=== PATIENT | male | born 1995 | race Native Hawaiian/Other Pacific Islander ===

== ENCOUNTER 2020-04-28 21:23 | Emergency (ER) | payer MEDICAID, SELFPAY ==
--- NOTE | 2020-04-28 21:38 | PC.NURSE ---
pt arrived to via EMS and eloped immediately. EMS reported pt was very dramatic en route and was talking on his phone saying that he was bleeding heavily. EMS reports pt had no bleeding on scene or en route, and no lacerations or open areas.Pt would not agree to remain in ER and complete triage or treatment.
== END 2020-04-28 21:53 | disposition left against medical advice (07) ==
PROVIDERS: Emergency Provider Emergency Medicine Emergency Medical Services
DX: Z04.9 Encounter for examination and observation for unspecified reason (principal)

== ENCOUNTER 2021-09-23 10:54 | Emergency (ER) | payer MEDICAID, SELFPAY ==
[2021-09-23 11:03] VITALS: BP 160/103; PULSE 84; RESP 18; TEMP 36.8; O2SAT 97; BMI 21.4
[2021-09-23 11:23] LABS: MANUAL DIFF FLAG NO
[2021-09-23 11:36] VITALS: BP 147/91; PULSE 68; RESP 17; TEMP 36.9; O2SAT 99
[2021-09-23 11:37] LABS: Basophils Percent Auto 0.5 % (0-2); Eosinophils Absolute Auto 0.3 X10*3/uL (0.0-0.4); Eosinophils Percent Auto 3.8 % (0-4); Hematocrit 49.1 % (42.0-52.0); Imm Gran Abs Auto 0.01 X10*3/uL (0.00-0.03); Imm Gran Pct Auto 0.2 % (0.0-0.4); Lymphocytes Percent Auto 30.7 % (20-40); Mean Corpuscular HGB Conc 34.6 g/dl (31.0-36.0); Mean Corpuscular Hemoglobin 32.3 pg (27.0-33.0); Mean Corpuscular Volume 93.3 fL (80.0-98.0); Mean Platelet Volume 10.3 fL (9.4-12.4); Monocytes Absolute Auto 0.5 X10*3/uL (0.1-1.2); Monocytes Percent Auto 7.3 % (2-11); Neutrophils Absolute Auto 3.8 x10*3/uL (2.0-8.3); Neutrophils Percent Auto 57.5 % (45-73); Platelet Count 236 X10*3/uL (160-400); Red Blood Count 5.26 X10*6/uL (4.60-5.80); Red Cell Distribution Width 12.8 % (11.0-16.0); White Blood Count 6.6 X10*3/uL (4.8-10.8)
[2021-09-23 11:41] LABS: Ethanol < 10 mg/dL
--- NOTE | 2021-09-23 11:42 | ED_ITS ---
HPI - Psych General Chief Complaint: Psychiatric Symptoms <SADIQ Wahl Last Filed: 09/23/21 12:55> Stated Complaint: sec 12 <SADIQ Wahl Last Filed: 09/23/21 12:55> Time Seen by Provider: 09/23/21 11:01 <SADIQ Wahl Last Filed: 09/23/21 12:55> Source: patient <ASDIQ Wahl Last Filed: 09/23/21 12:55> Mode of arrival: ambulatory <SADIQ Wahl Last Filed: 09/23/21 12:55> Limitations: no limitations <SADIQ Wahl Last Filed: 09/23/21 12:55> History of Present Illness HPI Narrative: 25-year-old male presenting to the ED via EMS with police involvement with a Section 12 sign by police presenting to the ED after his girlfriend that he just broke up with called the police after he made an SI statement saying that he was going to kill himself by text message. Patient reports that he does drink Vee and he drank prior to arrival. He denies any drug usage. He denies SI/HI / auditory visualizations thoughts of self-injury. He reports that the girlfriend is mad because I do not want to fuck her anymore . He reports that he is not interested in detox. He feels safe at home. He reports that he has a job. He denies any other symptoms complaints or concerns at this time. 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) <SADIQ Wahl Last Filed: 09/23/21 12:55> Duration: constant <SADIQ Wahl Last Filed: 09/23/21 12:55> History of same: Yes <SADIQ Wahl Last Filed: 09/23/21 12:55> Relieving factors: none <SADIQ Wahl Last Filed: 09/23/21 12:55> Exacerbating factors: none <SADIQ Wahl Last Filed: 09/23/21 12:55> Context: recent alcohol abuse <SADIQ Wahl Last Filed: 09/23/21 12:55> Associated symptoms: denies other symptoms <SADIQ Wahl Last Filed: 09/23/21 12:55> Related Data Allergies/Adverse Reactions: Allergies Allergy/AdvReac Type Severity Reaction Status Date / Time chlorpromazine Allergy Unknown UNKNOWN Unverified 02/25/20 16:18 [From THORAZINE] haloperidol [From HALDOL] Allergy Unknown UNKNOWN Unverified 02/25/20 16:18 <SADIQ Wahl Last Filed: 09/23/21 12:55> Review of Systems Review of Systems: Constitutional : No Fever, No Chills ENT/Mouth : No Ear Pain, No Nasal Congestion, No sore throat Eyes: No Eye Pain, No Swelling, No Redness Cardiovascular : No Chest Pain, No SOB Respiratory : No Cough, No Sputum, No Dyspnea Gastrointestinal : No ingestions, No Nausea, No Vomiting, No Diarrhea, No Hematochezia, No Melena Genitourinary : No Dysuria, No Urinary Frequency, No Hematuria Musculoskeletal : No Myalgias Skin : No Skin Lesions, No rash Neuro : No Weakness, No Numbness, No Paresthesias, No Dizziness, No Headache Psych : + Anxiety, No Depression, No SI, No thoughts of self injury, No HI, No AVH, Heme/Lymph: No Lymphadenopathy Endocrine : No Polyuria, No Polydipsia <SADIQ Wahl Last Filed: 09/23/21 12:55> Yes all other systems are reviewed and are negative <SADIQ Wahl Last Filed: 09/23/21 12:55> [facility] Past Medical History Attestation statement: The following information was validated with the patient. <SADIQ Wahl Last Filed: 09/23/21 12:55> Social History Social History: Social History Advance Directives: No Advance Directives Information Provided: No <SADIQ Wahl Last Filed: 09/23/21 12:55> Physical Exam Vital Signs: Vital Signs: Last Vital Signs Temp 98.4 F 09/23/21 11:36 Pulse 68 09/23/21 11:36 Resp 17 09/23/21 11:36 BP 147/91 H 09/23/21 11:36 Pulse Ox 99 09/23/21 11:36 BMI result Body Mass Index 21.4 vital signs have been reviewed as normal and appeared to be correct. Blood pressure 160/103. Heart rate normal. Respiration rate normal. Temperature normal. Oxygen saturation normal. <SADIQ Wahl - Last Filed: 09/23/21 12:55> Vital Signs: Last Vital Signs Temp 98.4 F 09/23/21 11:36 Pulse 68 09/23/21 11:36 Resp 17 09/23/21 11:36 BP 147/91 H 09/23/21 11:36 Pulse Ox 99 09/23/21 11:36 BMI result Body Mass Index 21.4 <SADIQ Howe - Last Filed: 09/23/21 13:36> Appearance: Alert. Oriented X3. No acute distress. Head: Normal external exam. Normocephalic. Atraumatic. No Antonio signs noted. No raccoon eyes noted Eyes: PERRLA. EOMI. Conjunctiva and sclera normal. Eyelids normal. ENT: EAC normal. TM's Normal. Pharynx normal. Uvula midline. Moist mucous membranes. No trismus noted. No drooling noted. No muffled voice noted. Neck: Normal inspection. Neck supple. FROM. No adenopathy. Thyroid Normal. No meningeal signs. No neck mass noted. CVS: Normal heart rate and rhythm. Heart sound normal. No murmurs noted. Pulses normal throughout. Respiratory: No respiratory distress. Painless inspiration. Breath sounds jaymie l. No wheezes/rales/rhonchi noted. Chest nontender. No accessory muscle usage noted or decreased air movement noted. Abdomen: Soft and nontender. Bowel sounds normal in all 4 quadrants. No distention noted. No organomegaly noted. No visible injury noted. Back: No CVA tenderness. Full range of motion noted. Skin: Skin warm and dry. Normal skin color. Normal skin turgor. No rashes/lesions/lacerations noted. Extremities: No lower extremity edema. Extremities exhibit normal range of motion. Extremities nontender. Neuro: Oriented X 3. No motor deficit. No sensory deficit. Reflexes normal. CN's II-XII intact bilaterally? Psych: Appearance grossly normal, well-kept, mental status normal, speech and movement normal, speech clear, patient appears very sad and anxious along with depressed. Is cooperative. Normal thought process. Normal thought content. Normal good insight. Judgment good. <SADIQ Wahl - Last Filed: 09/23/21 12:55> Course Course Course Narrative: 11am - 25-year-old male presenting to the ED via EMS with police involvement with a Section 12 sign by police presenting to the ED after his girlfriend that he j ust broke up with called the police after he made an SI statement saying that he was going to kill himself by text message. Patient reports that he does drink Vee and he drank prior to arrival. He denies any drug usage. He denies SI/HI / auditory visualizations thoughts of self-injury. He reports that the girlfriend is mad because I do not want to fuck her anymore . He reports that he is not interested in detox. He feels safe at home. He reports that he has a job. He denies any other symptoms complaints or concerns at this time. Will obtain labs, UA, drugs of abuse screen, alcohol level and a COVID swab then re-evaluate. <SADIQ Wahl - Last Filed: 09/23/21 12:55> Reevaluation(s) Reevaluation #1: - All labs within normal limits. Patient's alcohol level is completely negative. Patient negative for COVID. - Therefore patient is placed in Physician observation because the patient needs more time to be evaluated by crisis. At this time he is alert and oriented x3. Not in any acute distress. No focal neuro deficits are noted. Lungs clear to auscultation. CV RRR. Abdomen is soft nontender. Will continue to monitor until he is evaluated by crisis. <SADIQ Wahl - Last Filed: 09/23/21 12:55> Time: 11:58 <SADIQ Wahl - Last Filed: 09/23/21 12:55> Reevaluation #2: Patient will be an [facility] follow up. Initially [facility] wanted to discharge this patient however, based on his initial presentation and him shouting things and appearing to be manic I do not agree. Patient will be reevaluated tomorrow. N did not fill out a section 12. <SADIQ Howe - Last Filed: 09/23/21 13:36> Time: 13:36 <SADIQ Howe - Last Filed: 09/23/21 13:36> MDM - Psych Medical Records Attestation: I reviewed the patient's medical records. <SADIQ Wahl - Last Filed: 09/23/21 12:55> Lab Data Attestation: I reviewed the patient's lab results. <SADIQ Wahl - Last Filed: 09/23/21 12:55> Result diagrams: : 09/23/21 11:16 09/23/21 11:16 <SADIQ Wahl - Last Filed: 09/23/21 12:55> Labs: Lab Results 09/23/21 09/23/21 09/23/21 Range/Units 11:16 11:16 11:16 WBC 6.6 (4.8-10.8) X10*3/uL RBC 5.26 (4.60-5.80) X10*6/uL Hgb 17.0 (14.0-18.0) g/dl Hct 49.1 (42.0-52.0) % MCV 93.3 (80.0-98.0) fL MCH 32.3 (27.0-33.0) pg MCHC 34.6 (31.0-36.0) g/dl RDW 12.8 (11.0-16.0) % Plt Count 236 (160-400) X10*3/uL MPV 10.3 (9.4-12.4) fL Immature Gran % (Auto) 0.2 (0.0-0.4) % Neut % (Auto) 57.5 (45-73) % Lymph % (Auto) 30.7 (20-40) % [place] % (Auto) 7.3 (2-11) % Eos % (Auto) 3.8 (0-4) % Baso % (Auto) 0.5 (0-2) % Lymph # (Auto) 2.0 (1.2-4.9) X10*3/uL [place] # (Auto) 0.5 (0.1-1.2) X10*3/uL Eos # (Auto) 0.3 (0.0-0.4) X10*3/uL Baso # (Auto) 0.0 (0.0-0.2) X10*3/uL Abs Immat Gran (auto) 0.01 (0.00-0.03) X10*3/uL Absolute Neuts (auto) 3.8 (2.0-8.3) x10*3/uL Absolute Nucleated RBC 0.000 (0.0-0.012) X10*3/uL Nucleated RBC % (auto) 0.0 (0.0-0.2) /100WBC Sodium 139 (135-145) mmol/L Potassium 4.0 (3.3-5.1) mmol/L Chloride 105 (96-108) mmol/L Carbon Dioxide 25 (22-29) mmol/L Anion Gap 13 (12-20) BUN 13 (9-16) mg/dL Creatinine 0.92 (0.5-1.4) mg/dL Estim Creat Clear Calc 119.1 Estimated GFR > 60 Random Glucose 92 (60-115) mg/dL Calcium 9.9 (8.4-10.2) mg/dL Magnesium 2.3 (1.6-2.6) mg/dL Total Bilirubin 0.7 (0.0-1.0) mg/dL AST 21 (5-37) U/L ALT 21 (0-40) U/L Alkaline Phosphatase 59 (39-117) U/L Total Protein 7.5 (6.5-8.0) g/dL Albumin 4.5 (3.5-5.0) g/dL Lipase 24 (8-78) U/L Ethyl Alcohol < 10 mg/dL COVID-19 (DELPHINE) (Negative) COVID-19 Clin Com 09/23/21 Range/Units 11:16 WBC (4.8-10.8) X10*3/uL RBC (4.60-5.80) X10*6/uL Hgb (14.0-18.0) g/dl Hct (42.0-52.0) % MCV (80.0-98.0) fL MCH (27.0-33.0) pg MCHC (31.0-36.0) g/dl RDW (11.0-16.0) % Plt Count (160-400) X10*3/uL MPV (9.4-12.4) fL Immature Gran % (Auto) (0.0-0.4) % Neut % (Auto) (45-73) % Lymph % (Auto) (20-40) % [place] % (Auto) (2-11) % Eos % (Auto) (0-4) % Baso % (Auto) (0-2) % Lymph # (Auto) (1.2-4.9) X10*3/uL [place] # (Auto) (0.1-1.2) X10*3/uL Eos # (Auto) (0.0-0.4) X10*3/uL Baso # (Auto) (0.0-0.2) X10*3/uL Abs Immat Gran (auto) (0.00-0.03) X10*3/uL Absolute Neuts (auto) (2.0-8.3) x10*3/uL Absolute Nucleated RBC (0.0-0.012) X10*3/uL Nucleated RBC % (auto) (0.0-0.2) /100WBC Sodium (135-145) mmol/L Potassium (3.3-5.1) mmol/L Chloride (96-108) mmol/L Carbon Dioxide (22-29) mmol/L Anion Gap (12-20) BUN (9-16) mg/dL Creatinine (0.5-1.4) mg/dL Estim Creat Clear Calc Estimated GFR Random Glucose (60-115) mg/dL Calcium (8.4-10.2) mg/dL Magnesium (1.6-2.6) mg/dL Total Bilirubin (0.0-1.0) mg/dL AST (5-37) U/L ALT (0-40) U/L Alkaline Phosphatase (39-117) U/L Total Protein (6.5-8.0) g/dL Albumin (3.5-5.0) g/dL Lipase (8-78) U/L Ethyl Alcohol mg/dL COVID-19 (DELPHINE) Negative (Negative) COVID-19 Clin Com See Note <SADIQ Wahl - Last Filed: 09/23/21 12:55> Lab Results 09/23/21 09/23/21 09/23/21 Range/Units 11:16 11:16 11:16 WBC 6.6 (4.8-10.8) X10*3/uL RBC 5.26 (4.60-5.80) X10*6/uL Hgb 17.0 (14.0-18.0) g/dl Hct 49.1 (42.0-52.0) % MCV 93.3 (80.0-98.0) fL MCH 32.3 (27.0-33.0) pg MCHC 34.6 (31.0-36.0) g/dl RDW 12.8 (11.0-16.0) % Plt Count 236 (160-400) X10*3/uL MPV 10.3 (9.4-12.4) fL Immature Gran % (Auto) 0.2 (0.0-0.4) % Neut % (Auto) 57.5 (45-73) % Lymph % (Auto) 30.7 (20-40) % [place] % (Auto) 7.3 (2-11) % Eos % (Auto) 3.8 (0-4) % Baso % (Auto) 0.5 (0-2) % Lymph # (Auto) 2.0 (1.2-4.9) X10*3/uL [place] # (Auto) 0.5 (0.1-1.2) X10*3/uL Eos # (Auto) 0.3 (0.0-0.4) X10*3/uL Baso # (Auto) 0.0 (0.0-0.2) X10*3/uL Abs Immat Gran (auto) 0.01 (0.00-0.03) X10*3/uL Absolute Neuts (auto) 3.8 (2.0-8.3) x10*3/uL Absolute Nucleated RBC 0.000 (0.0-0.012) X10*3/uL Nucleated RBC % (auto) 0.0 (0.0-0.2) /100WBC Sodium 139 (135-145) mmol/L Potassium 4.0 (3.3-5.1) mmol/L Chloride 105 (96-108) mmol/L Carbon Dioxide 25 (22-29) mmol/L Anion Gap 13 (12-20) BUN 13 (9-16) mg/dL Creatinine 0.92 (0.5-1.4) mg/dL Estim Creat Clear Calc 119.1 Estimated GFR > 60 Random Glucose 92 (60-115) mg/dL Calcium 9.9 (8.4-10.2) mg/dL Magnesium 2.3 (1.6-2.6) mg/dL Total Bilirubin 0.7 (0.0-1.0) mg/dL AST 21 (5-37) U/L ALT 21 (0-40) U/L Alkaline Phosphatase 59 (39-117) U/L Total Protein 7.5 (6.5-8.0) g/dL Albumin 4.5 (3.5-5.0) g/dL Lipase 24 (8-78) U/L Ethyl Alcohol < 10 mg/dL COVID-19 (DELPHINE) (Negative) COVID-19 Clin Com 09/23/21 Range/Units 11:16 WBC (4.8-10.8) X10*3/uL RBC (4.60-5.80) X10*6/uL Hgb (14.0-18.0) g/dl Hct (42.0-52.0) % MCV (80.0-98.0) fL MCH (27.0-33.0) pg MCHC (31.0-36.0) g/dl RDW (11.0-16.0) % Plt Count (160-400) X10*3/uL MPV (9.4-12.4) fL Immature Gran % (Auto) (0.0-0.4) % Neut % (Auto) (45-73) % Lymph % (Auto) (20-40) % [place] % (Auto) (2-11) % Eos % (Auto) (0-4) % Baso % (Auto) (0-2) % Lymph # (Auto) (1.2-4.9) X10*3/uL [place] # (Auto) (0.1-1.2) X10*3/uL Eos # (Auto) (0.0-0.4) X10*3/uL Baso # (Auto) (0.0-0.2) X10*3/uL Abs Immat Gran (auto) (0.00-0.03) X10*3/uL Absolute Neuts (auto) (2.0-8.3) x10*3/uL Absolute Nucleated RBC (0.0-0.012) X10*3/uL Nucleated RBC % (auto) (0.0-0.2) /100WBC Sodium (135-145) mmol/L Potassium (3.3-5.1) mmol/L Chloride (96-108) mmol/L Carbon Dioxide (22-29) mmol/L Anion Gap (12-20) BUN (9-16) mg/dL Creatinine (0.5-1.4) mg/dL Estim Creat Clear Calc Estimated GFR Random Glucose (60-115) mg/dL Calcium (8.4-10.2) mg/dL Magnesium (1.6-2.6) mg/dL Total Bilirubin (0.0-1.0) mg/dL AST (5-37) U/L ALT (0-40) U/L Alkaline Phosphatase (39-117) U/L Total Protein (6.5-8.0) g/dL Albumin (3.5-5.0) g/dL Lipase (8-78) U/L Ethyl Alcohol mg/dL COVID-19 ([place]) Negative (Negative) COVID-19 Clin Com See Note <SADIQ Howe - Last Filed: 09/23/21 13:36> Discharge Plan Discharge Clinical Impression: Agitation, Anxiety <SADIQ Wahl - Last Filed: 09/23/21 12:55> Patient Disposition: Still a Patient <SADIQ Wahl - Last Filed: 09/23/21 12:55>
[2021-09-23 11:44] LABS: Alanine Aminotransferase 21 U/L (0-40); Albumin Level 4.5 g/dL (3.5-5.0); Alkaline Phosphatase 59 U/L (39-117); Anion Gap 13 (12-20); Aspartate Amino Transferase 21 U/L (5-37); Bilirubin Total 0.7 mg/dL (0.0-1.0); Blood Urea Nitrogen 13 mg/dL (9-16); Calcium 9.9 mg/dL (8.4-10.2); Carbon Dioxide 25 mmol/L (22-29); Chloride 105 mmol/L (96-108); Creatinine Clr Calc Pharmacy 119.1; Estimated Glomerular Filt Rate > 60; Glucose Random 92 mg/dL (60-115); Lipase 24 U/L (8-78); Magnesium 2.3 mg/dL (1.6-2.6); Sodium 139 mmol/L (135-145); Total Protein 7.5 g/dL (6.5-8.0)
[2021-09-23 11:46] LABS: COVID-19 Test Negative (Negative)
--- NOTE | 2021-09-23 13:17 | PC.NURSE ---
[facility] AT BEDSIDE
[2021-09-23 13:52] VITALS: BP 151/81; PULSE 62; RESP 16; O2SAT 99
--- NOTE | 2021-09-23 17:20 | PC.NURSE ---
[facility] called regarding patient and med list. Patient has a [facility] order.
--- NOTE | 2021-09-23 19:05 | PC.NURSE ---
Took report from Norma to assume care of Pt. Pt resting and watching TV, Pt calm/cooperative at this time, safety maintained, this RN continues to monitor.
[2021-09-23] MEDS: Melatonin 3 MG TABLET 6 MG PO (20:51)
[2021-09-23] MEDS: OLANZapine 7.5 MG TABLET PO (20:51)
--- NOTE | 2021-09-23 20:55 | PC.NURSE ---
Pt medicated with scheduled bedtime meds, Pt took meds without incident, Pt calm/cooperative at this time, safety maintained, this RN continues to monitor.
--- NOTE | 2021-09-23 22:58 | PC.NURSE ---
Pt sleeping, chest rise and fall observed, safety maintained, this RN continues to monitor.
--- NOTE | 2021-09-24 04:55 | PC.NURSE ---
Pt sleeping, chest rise and fall observed, safety maintained, this RN continues to monitor.
--- NOTE | 2021-09-24 06:42 | PC.NURSE ---
Pt sleeping, chest rise and fall observed, safety maintained, this RN continues to monitor.
[2021-09-24 10:20] VITALS: BP 141/93; PULSE 63; RESP 18; TEMP 36.6; O2SAT 98
== END 2021-09-24 11:56 | disposition home or self-care (01) ==
PROVIDERS: Physician Assistant Medical; Emergency Provider Emergency Medicine
DX: F41.9 Anxiety disorder, unspecified (principal); R45.1 Restlessness and agitation; Z20.822 Contact with and (suspected) exposure to COVID-19
CPT/HCPCS: 36415; 80053; 82077; 83690; 83735; 85025; 87635; 99285

== ENCOUNTER 2021-11-13 19:36 | Inpatient (IN) | payer OTHER, MEDICAID, SELFPAY ==
[2021-11-13 19:46] VITALS: BP 144/89; PULSE 84; RESP 17; TEMP 37; O2SAT 96; BMI 27.3
[2021-11-13 20:19] LABS: MANUAL DIFF FLAG NO
[2021-11-13 20:30] LABS: Basophils Percent Auto 0.4 % (0-2); Eosinophils Absolute Auto 0.1 X10*3/uL (0.0-0.4); Hematocrit 47.3 % (42.0-52.0); Hemoglobin 16.5 g/dl (14.0-18.0); Imm Gran Abs Auto 0.03 X10*3/uL (0.00-0.03); Imm Gran Pct Auto 0.4 % (0.0-0.4); Lymphocytes Absolute Auto 1.3 X10*3/uL (1.2-4.9); Lymphocytes Percent Auto 17.4 % (20-40); Mean Corpuscular HGB Conc 34.9 g/dl (31.0-36.0); Mean Corpuscular Volume 91.8 fL (80.0-98.0); Mean Platelet Volume 9.9 fL (9.4-12.4); Monocytes Absolute Auto 0.6 X10*3/uL (0.1-1.2); Monocytes Percent Auto 7.6 % (2-11); Neutrophils Absolute Auto 5.6 x10*3/uL (2.0-8.3); Neutrophils Percent Auto 73.2 % (45-73); Platelet Count 241 X10*3/uL (160-400); Red Blood Count 5.15 X10*6/uL (4.60-5.80); Red Cell Distribution Width 12.2 % (11.0-16.0); White Blood Count 7.6 X10*3/uL (4.8-10.8)
--- NOTE | 2021-11-13 20:34 | ED_ITS ---
HPI - Psych General Chief Complaint: Psychiatric Symptoms Stated Complaint: crisis Time Seen by Provider: 11/13/21 19:47 Source: patient and EMS Mode of arrival: EMS Limitations: no limitations History of Present Illness HPI Narrative: Patient comes to the emergency room complaining of suicidal ideation. Patient s tates that he recently found out that his fiancee of 7 years has been cheating on him. Patient states that his fiancee a accidentally ?butt dialed him through [employer], and he was able to see that his fiancee the was cheating on him with a wilson. Patient broke up the engagement, they were supposed to get in 2 months. Patient states that initially he was suicidal. However, his best friend has been very supportive, the patient states that he is in reality not suicidal, it was just a moment of anger that made him say that. Patient has history of schizophrenia, off medications. Patient denies at this time active suicidal ideation or homicidal ideation, denies hallucinations. Patient's friend called [facility], patient was evaluated in the field, Section 12 and brought to the emergency room Related Data Home Medications Medication Instructions Recorded Confirmed No Known Home Meds 11/13/21 11/13/21 Allergies Allergy/AdvReac Type Severity Reaction Status Date / Time chlorpromazine Allergy Unknown UNKNOWN Unverified 02/25/20 16:18 [From THORAZINE] haloperidol [From HALDOL] Allergy Unknown UNKNOWN Unverified 02/25/20 16:18 Review of Systems Review of Systems: Constitutional : No Weight loss, No Fever, No Chills, No Night Sweats, No Fatigue, No Malaise ENT/Mouth : No Hearing loss, No Ear Pain, No Nasal Congestion, No Sinus Pain, No Hoarseness, No sore throat, No Rhinorrhea, No Swallowing Difficulty Eyes: No Eye Pain, No Swelling, No Redness, No Foreign Body, No Discharge, No Vision Changes Cardiovascular : No Chest Pain, No SOB, No Dyspnea on Exertion, No Orthopnea, No Edema, No Palpitations Respiratory : No Cough, No Sputum, No Wheezing, No Smoke Exposure, No Dyspnea Gastrointestinal : No Nausea, No Vomiting, No Diarrhea, No Constipation, No abdominal Pain, No Hematochezia, No Melena Genitourinary : no irregular bleeding, No Dysuria, No Urinary Frequency, No Hematuria, No Urinary Incontinence, No Urgency, No Flank Pain, No Urinary Flow Changes, No Hesitancy Musculoskeletal : No joint pain, No Myalgias, No Joint Swelling Skin : No Skin Lesions, No rash Neuro : No Weakness, No Numbness, No Paresthesias, No Loss of Consciousness, No Dizziness, No Headache Psych : Anxious, depressed, vague SI, no HI Heme/Lymph: No Bruising, No Bleeding,No Lymphadenopathy Endocrine : No Polyuria, No Polydipsia, No Temperature Intolerance [facility] Past Medical History Medical History (Updated 11/13/21 @ 20:42 by Yaneth Morgan MD) Schizophrenia Social History Social History Alcohol intake: never Patient Tobacco Use Status: Never used Tobacco Advance Directives: No Advance Directives Information Provided: No Physical Exam Vital Signs: Vital Signs: Last Vital Signs Temp 98.6 F 11/13/21 19:46 Pulse 84 11/13/21 19:46 Resp 17 11/13/21 19:46 BP 144/89 H 11/13/21 19:46 Pulse Ox 96 11/13/21 19:46 BMI result Body Mass Index 27.3 Const: Other: Appearance: Alert. Oriented X3. No acute distress. Eyes: Pupils equal, round and reactive to light. ENT: Pharynx normal. Neck: Normal inspection. Neck supple. No lymph nodes noted. No crepitus CVS: Normal heart rate and rhythm. Pulses normal. Normal S1 and S2 Respiratory: No respiratory distress. Breath sounds normal. No Wheezing. No rales Abdomen: Soft and nontender. No rigidity. No distention. Skin: Skin warm and dry. Normal skin color. Normal skin turgor. Extremities: No lower extremity edema. No Lacerations. No Rash Neuro: Oriented X 3. No motor deficit. No sensory deficit. Moving all extremities. No slurred speech. CN 2 through 12 grossly intact Psych: calm, cooperative, normal affect, coherent Course Course Course Narrative: Patient [facility], patient is on the Section 12 and an inpatient bed search. It is possible that the patient may request a 2nd evaluation/2nd opinion from [facility] in the morning. Physician observation started at 20:40 [facility] - Psych Lab Data Result diagrams: 11/13/21 20:12 11/13/21 20:12 Labs: Lab Results 11/13/21 Range/Units 20:12 WBC 7.6 (4.8-10.8) X10*3/uL RBC 5.15 (4.60-5.80) X10*6/uL Hgb 16.5 (14.0-18.0) g/dl Hct 47.3 (42.0-52.0) % MCV 91.8 (80.0-98.0) fL MCH 32.0 (27.0-33.0) pg MCHC 34.9 (31.0-36.0) g/dl RDW 12.2 (11.0-16.0) % Plt Count 241 (160-400) X10*3/uL MPV 9.9 (9.4-12.4) fL Immature Gran % (Auto) 0.4 (0.0-0.4) % Neut % (Auto) 73.2 H (45-73) % Lymph % (Auto) 17.4 L (20-40) % [place] % (Auto) 7.6 (2-11) % Eos % (Auto) 1.0 (0-4) % Baso % (Auto) 0.4 (0-2) % Lymph # (Auto) 1.3 (1.2-4.9) X10*3/uL [place] # (Auto) 0.6 (0.1-1.2) X10*3/uL Eos # (Auto) 0.1 (0.0-0.4) X10*3/uL Baso # (Auto) 0.0 (0.0-0.2) X10*3/uL Abs Immat Gran (auto) 0.03 (0.00-0.03) X10*3/uL Absolute Neuts (auto) 5.6 (2.0-8.3) x10*3/uL Absolute Nucleated RBC 0.000 (0.0-0.012) X10*3/uL Nucleated RBC % (auto) 0.0 (0.0-0.2) /100WBC Discharge Plan Discharge Clinical Impression: Suicidal ideation Patient Disposition: Still a Patient Prescriptions: No Action No Known Home Meds 0RF
[2021-11-13 20:39] LABS: Ethanol < 10 mg/dL
[2021-11-13 20:41] LABS: Anion Gap 13 (12-20); Blood Urea Nitrogen 21 mg/dL (9-16); Calcium 9.8 mg/dL (8.4-10.2); Carbon Dioxide 25 mmol/L (22-29); Chloride 105 mmol/L (96-108); Creatinine Clr Calc Pharmacy 100.3; Estimated Glomerular Filt Rate > 60; Glucose Random 110 mg/dL (60-115); Sodium 139 mmol/L (135-145)
[2021-11-13 20:43] LABS: Amphetamine Screen Urine Not Detected (Not Detect); Barbiturates, Urine Not Detected (Not Detect); Benzodiazepines Screen Urine Not Detected (Not Detect); Cannabinoid Screen Urine Not Detected (Not Detect); Cocaine Screen Urine Not Detected (Not Detect); Fentanyl, urine Not Detected (Not Detect); Opiate Screen Urine Not Detected (Not Detect); Phencyclidine Screen Urine Not Detected (Not Detect)
[2021-11-13 20:44] LABS: COVID-19 Test Negative (Negative)
--- NOTE | 2021-11-14 | ECG_ITS ---
Test Reason : medical clearance Blood Pressure : / mmHG Vent. Rate : 053 BPM Atrial Rate : 053 BPM P-R Int : 118 ms QRS Dur : 098 ms QT Int : 396 ms P-R-T Axes : 039 052 028 degrees QTc Int : 371 ms Sinus bradycardia Otherwise normal ECG No previous ECGs available Referred By: Mariela Galarza Electronically Signed By:MATTEO MELGOZA
[2021-11-14 00:23] VITALS: BP 140/78; PULSE 74; RESP 16; TEMP 37.1; O2SAT 96
--- NOTE | 2021-11-14 07:09 | PC.NURSE ---
Patient slept through the night, no distress observed/reported, behavior non concerning but hyper-verbal, disposition per [facility] is section 12 inpatient bed search, VSS, patient is currently not on any medication, will continue to monitor.
--- NOTE | 2021-11-14 08:06 | PC.NURSE ---
patient appears to remain asleep at present respirations are even and unlabored patient appears in no distress
[2021-11-14 08:12] VITALS: BP 134/80; PULSE 61; RESP 13; TEMP 36.6; O2SAT 97
--- NOTE | 2021-11-14 12:40 | PC.NURSE ---
patient approaches staff and talks at persons without starting a conversation, blaming missing appointments on providers.
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
--- NOTE | 2021-11-14 17:46 | PC.NURSE ---
Rose Mary Lyn signed a 3-day notice on Saturday11/14/21, will be on Saturday11/17/21.
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
[2021-11-15 06:41] VITALS: BP 170/82; PULSE 52; RESP 14; TEMP 36.7; O2SAT 90
[2021-11-15 08:54] LABS: Estimated Average Glucose 88 mg/dL; Hemoglobin A1c % 4.7 %
[2021-11-15 09:07] LABS: Cholesterol 171 mg/dL; HDL Cholesterol 40 mg/dL; LDL Cholesterol Calculated 119 mg/dl; Triglycerides 60 mg/dL
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
[2021-11-15] MEDS: OLANZapine 2.5 MG TABLET PO (13:29)
[2021-11-15 18:00] VITALS: BP 123/58; PULSE 55; RESP 18; TEMP 37.1; O2SAT 98
[2021-11-15] MEDS: OLANZapine 2.5 MG TABLET 7.5 MG PO (19:43)
[2021-11-16 06:45] VITALS: BP 127/76; PULSE 51; RESP 14; TEMP 36.6; O2SAT 98
[2021-11-16 07:00] VITALS: BMI 27.6
[2021-11-16 16:25] VITALS: BP 148/74; PULSE 82
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
[2021-11-16] MEDS: OLANZapine 2.5 MG TABLET 7.5 MG PO (19:14)
[2021-11-17 18:00] VITALS: BP 151/94; PULSE 70; RESP 17; TEMP 36.9; O2SAT 96
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
[2021-11-17] MEDS: OLANZapine 2.5 MG TABLET 7.5 MG PO (18:59)
[2021-11-18 06:00] VITALS: BP 134/88; PULSE 59; RESP 16; TEMP 36.6; O2SAT 97
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
[2021-11-18 18:00] VITALS: BP 134/74; PULSE 108; RESP 18; TEMP 36.9; O2SAT 95
[2021-11-18] MEDS: OLANZapine 2.5 MG TABLET 7.5 MG PO (19:43)
[2021-11-19 06:00] VITALS: BP 138/86; PULSE 88; RESP 18; TEMP 36.7; O2SAT 96
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
[2021-11-19 16:00] VITALS: BP 130/94; PULSE 79
[2021-11-19] MEDS: OLANZapine 2.5 MG TABLET 7.5 MG PO (18:59)
[2021-11-20 06:00] VITALS: BP 131/80; PULSE 74; RESP 18; TEMP 36.9; O2SAT 96
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
[2021-11-20 18:00] VITALS: BP 140/75; PULSE 80
[2021-11-20] MEDS: OLANZapine 2.5 MG TABLET 7.5 MG PO (19:45)
[2021-11-21 06:43] VITALS: BP 156/94; PULSE 134; RESP 16; TEMP 36.7; O2SAT 97
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
== END 2021-11-21 13:00 | disposition home or self-care (01) | DRG 750 ==
LOC: HO.ED 11-14 12:50 → HO.PM5 11-14 14:46
PROVIDERS: Admitting Provider Psychiatry & Neurology Psychiatry; Emergency Provider Emergency Medicine; Visit Provider Psychiatry & Neurology Psychiatry
DX: F25.0 Schizoaffective disorder, bipolar type (principal); R45.851 Suicidal ideations; F60.2 Antisocial personality disorder; F43.10 Post-traumatic stress disorder, unspecified; Z20.822 Contact with and (suspected) exposure to COVID-19; Z62.810 Personal history of physical and sexual abuse in childhood; Z62.812 Personal history of neglect in childhood; Z88.8 Allergy status to other drugs, medicaments and biological substances; Z79.899 Other long term (current) drug therapy
CPT/HCPCS: 36415; 80048; 80061; 80307; 82077; 83036; 85025; 87635; 93005; 99285

== ENCOUNTER 2021-12-11 10:28 | Emergency (ER) | payer MEDICAID, SELFPAY ==
[2021-12-11 11:38] VITALS: BP 140/83; PULSE 66; RESP 16; TEMP 36.3; O2SAT 96; BMI 27.4
[2021-12-11 12:12] LABS: COVID-19 Test Negative (Negative); IDNOW Serial# 16C4AD1C; Influenza A Negative (Negative); Influenza B2 Negative (Negative)
[2021-12-11 12:27] LABS: Strep A Nucleic Acid Negative (Negative)
== END 2021-12-11 14:15 | disposition left against medical advice (07) ==
PROVIDERS: Emergency Provider Emergency Medicine
DX: R51.9 Headache, unspecified (principal); R11.2 Nausea with vomiting, unspecified; J02.9 Acute pharyngitis, unspecified; Z20.822 Contact with and (suspected) exposure to COVID-19
CPT/HCPCS: 87502; 87635; 87651; 99281; 99283

== ENCOUNTER 2022-04-24 20:14 | Emergency (ER) | payer MEDICAID, SELFPAY ==
--- NOTE | ~2022-04-24 | XR_ITS ---
EXAMINATION: XR CHEST CLINICAL INFORMATION: Palpitations COMPARISON: Chest radiograph 09/20/2016 TECHNIQUE: 2 views of the chest were obtained. FINDINGS: There is a 1.9 cm rounded soft tissue density seen overlying the right first rib that was not seen at the time of the prior study. No other significant abnormality is noted involving the heart, lungs, mediastinum, bony thorax or soft tissues. XR/XR chest 2V IMPRESSION: 1. No acute intrathoracic disease. 2. Question of right upper lobe 1.[address] scan of the chest is recommended for further evaluation.
--- NOTE | ~2022-04-24 | CT_ITS ---
EXAMINATION: CT HEAD WITHOUT CONTRAST CLINICAL INFORMATION: Head pain status post fall. COMPARISON: 07/23/2008 TECHNIQUE: Contiguous axial imaging was performed of the head without the administration of IV contrast. This CT examination was performed using dose optimization techniques as appropriate, variously including the following: *Automated exposure control *Adjustment of mA and/or kV according to patient size (this includes techniques or standardized protocols for targeted exams where dose is matched to indication/reason for exam; i.e. extremities or head) *Use of iterative reconstruction technique Dose: 795 mGy-cm FINDINGS: There is no evidence of acute intracranial hemorrhage or territorial infarction. No abnormal mass-effect or midline shift is seen. Rodrigues to white matter differentiation is well preserved. No extra axial fluid collections. The ventricles are normal in size and configuration. There is no abnormal attenuation within the brain parenchyma. The soft tissues and osseous structures are normal. The sinuses and mastoid air cells are clear. CT/CT head/brain wo IV con IMPRESSION: No acute intracranial pathology.
[2022-04-24 20:36] VITALS: BP 119/80; PULSE 67; RESP 18; TEMP 36.6; O2SAT 97; BMI 24.0
[2022-04-24 23:59] LABS: Basophils Percent Auto 0.5 % (0-2); Eosinophils Absolute Auto 0.2 X10*3/uL (0.0-0.4); Hematocrit 47.5 % (42.0-52.0); Hemoglobin 16.5 g/dl (14.0-18.0); Imm Gran Abs Auto 0.01 X10*3/uL (0.00-0.03); Imm Gran Pct Auto 0.1 % (0.0-0.4); Lymphocytes Absolute Auto 2.5 X10*3/uL (1.2-4.9); Lymphocytes Percent Auto 32.5 % (20-40); MANUAL DIFF FLAG NO; Mean Corpuscular HGB Conc 34.7 g/dl (31.0-36.0); Mean Corpuscular Volume 92.1 fL (80.0-98.0); Mean Platelet Volume 9.9 fL (9.4-12.4); Monocytes Absolute Auto 0.7 X10*3/uL (0.1-1.2); Monocytes Percent Auto 8.6 % (2-11); Neutrophils Absolute Auto 4.3 x10*3/uL (2.0-8.3); Neutrophils Percent Auto 56.3 % (45-73); Platelet Count 240 X10*3/uL (160-400); Red Blood Count 5.16 X10*6/uL (4.60-5.80); Red Cell Distribution Width 12.6 % (11.0-16.0); White Blood Count 7.7 X10*3/uL (4.8-10.8)
[2022-04-25 00:14] LABS: D Dimer High Sensitivity < 150 NG/ML
--- NOTE | 2022-04-25 00:14 | ED_ITS ---
HPI - Fall General Chief Complaint: Fall Stated Complaint: Palpitations Time Seen by Provider: 04/25/22 00:02 Source: patient Mode of arrival: ambulatory Limitations: no limitations History of Present Illness HPI Narrative: Patient history of schizophrenia, asthma abruptly around 01:00 o'clock had a anxiety panic attack felt short of breath lost balance and fell about 4 steps hitting his head the back of the head no loss of consciousness no seizures felt her heart beating fast no chest pain got better of his own came here without any significant distress with stable vitals patient had the labs done in the triage which was normal head CT was also negative at this time patient does not have any complaints Related Data Previous Rx's Medication Instructions Recorded olanzapine 7.5 mg tablet 7.5 mg PO BEDTIME 30 days #30 tabs 11/20/21 albuterol sulfate 90 mcg/actuation 2 puff inhalation Q4-6H PRN 04/25/22 aerosol inhaler (ProAir HFA) shortness of breath or wheezing #8.5 grams Allergies Allergy/AdvReac Type Severity Reaction Status Date / Time chlorpromazine Allergy Unknown UNKNOWN Verified 04/24/22 20:41 [From THORAZINE] haloperidol [From HALDOL] Allergy Unknown UNKNOWN Verified 04/24/22 20:41 Review of Systems Review of Systems: Yes all other systems are reviewed and are negative PMFSH Past Medical History Medical History Antisocial personality disorder Schizophrenia Social History Social History Household Members: None Housing: Apartment Do you presently have visiting nurse or other home services: Yes Alcohol intake: never Patient Tobacco Use Status: Never used Tobacco e-Cigarette/Vaping Use: Never Used Second Hand Smoke Exposure: No Advance Directives: No Advance Directives Information Provided: Yes service: No Sexual orientation: Straight/Heterosexual Physical Exam Vital Signs: Vital Signs: Last Vital Signs Temp 98 F 04/24/22 20:36 Pulse 67 04/24/22 20:36 Resp 18 04/24/22 20:36 BP 119/80 04/24/22 20:36 Pulse Ox 97 04/24/22 20:36 O2 Del Method 04/24/22 20:36 BMI result Body Mass Index 24.0 Appearance: Alert. Oriented X3. No acute distress. Eyes: PERRLA, No Nystagmus ENT: Pharynx normal. Oral Mucosa moist Neck: Normal inspection. Neck supple. CVS: Normal heart rate and rhythm. Pulses normal. Respiratory: No respiratory distress. Equal air entry bilateral, no wheezing/rales/rhonchi Abdomen: Soft and nontender. Bowel sounds are present, no mass palpable, no CVA tenderness Skin: Skin warm and dry. Normal skin color. Normal skin turgor. Extremities: No lower extremity edema. No calf tenderness Neuro: Oriented X 3. No motor deficit. No sensory deficit.No cerebellar signs , cranial nerves II-XII intact MDM - Fall MDM Narrative Medical decision making narrative: Patient is status post minor fall, anxiety labs stable blood pressure stable heart rate normal sinus rhythm head CT negative will discharge patient home prescribe albuterol inhaler Lab Data Attestation: I reviewed the patient's lab results. Result diagrams: 04/24/22 23:53 04/24/22 23:53 Labs: Lab Results 04/24/22 04/24/22 04/24/22 Range/Units 23:52 23:53 23:53 WBC 7.7 (4.8-10.8) X10*3/uL RBC 5.16 (4.60-5.80) X10*6/uL Hgb 16.5 (14.0-18.0) g/dl Hct 47.5 (42.0-52.0) % MCV 92.1 (80.0-98.0) fL MCH 32.0 (27.0-33.0) pg MCHC 34.7 (31.0-36.0) g/dl RDW 12.6 (11.0-16.0) % Plt Count 240 (160-400) X10*3/uL MPV 9.9 (9.4-12.4) fL Immature Gran % (Auto) 0.1 (0.0-0.4) % Neut % (Auto) 56.3 (45-73) % Lymph % (Auto) 32.5 (20-40) % [place] % (Auto) 8.6 (2-11) % Eos % (Auto) 2.0 (0-4) % Baso % (Auto) 0.5 (0-2) % Lymph # (Auto) 2.5 (1.2-4.9) X10*3/uL [place] # (Auto) 0.7 (0.1-1.2) X10*3/uL Eos # (Auto) 0.2 (0.0-0.4) X10*3/uL Baso # (Auto) 0.0 (0.0-0.2) X10*3/uL Abs Immat Gran (auto) 0.01 (0.00-0.03) X10*3/uL Absolute Neuts (auto) 4.3 (2.0-8.3) x10*3/uL Absolute Nucleated RBC 0.000 (0.0-0.012) X10*3/uL Nucleated RBC % (auto) 0.0 (0.0-0.2) /100WBC D-Dimer High Sensitivty < 150 NG/ML Sodium 139 (135-145) mmol/L Potassium 3.8 (3.3-5.1) mmol/L Chloride 103 (96-108) mmol/L Carbon Dioxide 25 (22-29) mmol/L Anion Gap 15 (12-20) BUN 15 (9-16) mg/dL Creatinine 0.99 (0.5-1.4) mg/dL Estim Creat Clear Calc 118.3 Estimated GFR > 60 Random Glucose 89 (60-115) mg/dL Calcium 9.9 (8.4-10.2) mg/dL Troponin I High Sens (<3.5-35.0) ng/L COVID-19 ([facility]) (Negative) COVID-19 Clin Com 04/24/22 04/24/22 Range/Units 23:53 23:53 WBC (4.8-10.8) X10*3/uL RBC (4.60-5.80) X10*6/uL Hgb (14.0-18.0) g/dl Hct (42.0-52.0) % MCV (80.0-98.0) fL MCH (27.0-33.0) pg MCHC (31.0-36.0) g/dl RDW (11.0-16.0) % Plt Count (160-400) X10*3/uL MPV (9.4-12.4) fL Immature Gran % (Auto) (0.0-0.4) % Neut % (Auto) (45-73) % Lymph % (Auto) (20-40) % [place] % (Auto) (2-11) % Eos % (Auto) (0-4) % Baso % (Auto) (0-2) % Lymph # (Auto) (1.2-4.9) X10*3/uL [place] # (Auto) (0.1-1.2) X10*3/uL Eos # (Auto) (0.0-0.4) X10*3/uL Baso # (Auto) (0.0-0.2) X10*3/uL Abs Immat Gran (auto) (0.00-0.03) X10*3/uL Absolute Neuts (auto) (2.0-8.3) x10*3/uL Absolute Nucleated RBC (0.0-0.012) X10*3/uL Nucleated RBC % (auto) (0.0-0.2) /100WBC D-Dimer High Sensitivty NG/ML Sodium (135-145) mmol/L Potassium (3.3-5.1) mmol/L Chloride (96-108) mmol/L Carbon Dioxide (22-29) mmol/L Anion Gap (12-20) BUN (9-16) mg/dL Creatinine (0.5-1.4) mg/dL Estim Creat Clear Calc Estimated GFR Random Glucose (60-115) mg/dL Calcium (8.4-10.2) mg/dL Troponin I High Sens 5.4 (<3.5-35.0) ng/L COVID-19 ([facility]) Negative (Negative) COVID-19 Clin Com See Note Discharge Plan Discharge Clinical Impression: Fall (on) (from) other stairs and steps, initial encounter, Asthma Patient Disposition: Home, Self-Care Instructions: Asthma (ED), Head Injury (ED) Additional Instructions: Use albuterol inhaler as advised Care as advised Prescriptions: New albuterol sulfate [ProAir HFA] 90 mcg/actuation HFA aerosol inhaler 2 puff inhalation Q4-6H PRN (Reason: shortness of breath or wheezing) Qty: 8.5 0RF No Action olanzapine 7.5 mg tablet 7.5 mg PO BEDTIME 30 Days Qty: 30 0RF Rx Instructions: Send to: [address] [address]
[2022-04-25 00:17] LABS: Anion Gap 15 (12-20); Blood Urea Nitrogen 15 mg/dL (9-16); Calcium 9.9 mg/dL (8.4-10.2); Carbon Dioxide 25 mmol/L (22-29); Chloride 103 mmol/L (96-108); Creatinine Clr Calc Pharmacy 118.3; Estimated Glomerular Filt Rate > 60; Glucose Random 89 mg/dL (60-115); Potassium 3.8 mmol/L (3.3-5.1); Sodium 139 mmol/L (135-145)
[2022-04-25 00:19] LABS: COVID-19 Test Negative (Negative)
[2022-04-25 00:25] LABS: Troponin-I High Sensitivity 5.4 ng/L (<3.5-35.0)
[2022-04-25 00:28] VITALS: BP 117/82; PULSE 68; RESP 18; TEMP 36.7; O2SAT 99
== END 2022-04-25 00:59 | disposition home or self-care (01) ==
PROVIDERS: Emergency Provider Internal Medicine
DX: R00.2 Palpitations (principal); F41.1 Generalized anxiety disorder; F43.0 Acute stress reaction; R51.9 Headache, unspecified; J45.909 Unspecified asthma, uncomplicated; Z20.822 Contact with and (suspected) exposure to COVID-19; Z79.899 Other long term (current) drug therapy
CPT/HCPCS: 36415; 70450; 71046; 80048; 84484; 85025; 85379; 87635; 99283; 99284

== ENCOUNTER 2023-01-01 18:13 | Emergency (ER) | payer MEDICAID, SELFPAY ==
--- NOTE | ~2023-01-01 | XR_ITS ---
EXAMINATION: XR ANKLE, LEFT CLINICAL INFORMATION: Medial malleolus pain COMPARISON: None available. TECHNIQUE: AP, lateral, and mortise views of the left ankle. FINDINGS: No fracture. Alignment is anatomic. No erosions. Joint spaces are maintained. Soft tissues are normal. XR/XR ankle LT 2V IMPRESSION: Normal left ankle.
--- NOTE | ~2023-01-01 | CT_ITS ---
EXAMINATION: CT HEAD WITHOUT CONTRAST CLINICAL INFORMATION: Headache status-post fall. COMPARISON: None available. TECHNIQUE: Contiguous axial imaging was performed from the skull base to vertex without intravenous administration of contrast. Multiplanar reformatted images are submitted. This CT examination was performed using dose optimization techniques as appropriate, variously including the following: *Automated exposure control *Adjustment of mA and/or kV according to patient size (this includes techniques or standardized protocols for targeted exams where dose is matched to indication/reason for exam; i.e. extremities or head) *Use of iterative reconstruction technique DLP: 1461 mGy-cm (head and cervical spine) FINDINGS: There is no acute intracranial hemorrhage or evidence of territorial infarction. No abnormal mass effect or midline shift is seen. Rodrigues to white matter differentiation is well preserved. There is no abnormal attenuation within the brain parenchyma. The ventricles are normal in size. No extra-axial fluid collections are identified. The calvarium and scalp soft tissues are normal. The middle ear cavity and mastoid air cells are clear. The visualized paranasal sinuses are clear. CT/CT cervical spine wo IV con IMPRESSION: No acute intracranial pathology. EXAMINATION: CT CERVICAL SPINE WITHOUT CONTRAST CLINICAL INFORMATION: Neck pain status-post fall. COMPARISON: None available. TECHNIQUE: Contiguous axial imaging was performed through the cervical spine without intravenous administration of contrast. Multiplanar reformatted images are submitted. This CT examination was performed using dose optimization techniques as appropriate, variously including the following: *Automated exposure control *Adjustment of mA and/or kV according to patient size (this includes techniques or standardized protocols for targeted exams where dose is matched to indication/reason for exam; i.e. extremities or head) *Use of iterative reconstruction technique DLP: As above FINDINGS: There is mild anterior wedging of the C5 vertebral body, chronic in appearance. Vertebral body heights are otherwise unremarkable. Alignment is normal. The disc spaces are well-maintained. No acute fracture or spondylolisthesis is seen. There are small limbus vertebra anterior to the C4-C5 and C5-C6 disc spaces. Posteriorly at C6-C7, there is significant osteophytosis, possibly related to old trauma. There is slight adjacent vacuum disc phenomenon. No acute traumatic injury is seen. The posterior elements are intact. There is no prevertebral soft tissue swelling. The dens is intact. The bilateral lung apices are clear. IMPRESSION: There are chronic changes, including mild anterior wedging of the C5 vertebral body and old posterior spondylosis and degenerative disc disease at C6-C7. There is, however, no acute traumatic finding noted. Fleischner guidelines were followed.
[2023-01-01 18:20] VITALS: BP 149/85; PULSE 78; RESP 18; TEMP 36.6; O2SAT 100; BMI 29.4
[2023-01-01 18:21] VITALS: BP 162/90; PULSE 82; O2SAT 99
[2023-01-01 18:30] VITALS: PULSE 78
--- NOTE | 2023-01-01 18:32 | PC.NURSE ---
pt a&ox3. respirations even and unlabored. pt coming in after a fall off of a skateboard. reports of scraping the left elbow, hitting head and having the left ankle go under the skateboard. pt was not wearing a helmet. pt denies n/v or LOC.
--- NOTE | 2023-01-01 18:58 | ED.EXTPRO ---
HPI - Extremity Problem General Chief complaint: Extremity Injury, Upper Stated complaint: fell off skateboard, arm bleeding, per ems Time Seen by Provider: 01/01/23 18:44 Source: patient Mode of arrival: EMS Limitations: no limitations History of Present Illness HPI Narrative: Patient comes to the emergency room via ambulance. Patient states that he was skateboarding down a hill, patient hit a curve, landing on the right side of his body, then hit his head, and sprained his left ankle. Patient denies losing consciousness. Patient complaining mostly of cervical pain and left ankle pain. Patient denies being on blood thinners. Related Data Previous Rx's Medication Instructions Recorded olanzapine 7.5 mg tablet 7.5 mg PO BEDTIME 30 days #30 tabs 11/20/21 albuterol sulfate 90 mcg/actuation 2 puff inhalation Q4-6H PRN 04/25/22 aerosol inhaler (ProAir HFA) shortness of breath or wheezing #8.5 grams ibuprofen 400 mg tablet 400 mg PO Q8H PRN pain #14 tabs 01/01/23 Allergies Allergy/AdvReac Type Severity Reaction Status Date / Time chlorpromazine Allergy Unknown UNKNOWN Verified 01/01/23 18:27 [From THORAZINE] haloperidol [From HALDOL] Allergy Unknown UNKNOWN Verified 01/01/23 18:27 Review of Systems Review of Systems: Constitutional : No Weight loss, No Fever, No Chills, No Night Sweats, No Fatigue, No Malaise ENT/Mouth : No Hearing loss, No Ear Pain, No Nasal Congestion, No Sinus Pain, No Hoarseness, No sore throat, No Rhinorrhea, No Swallowing Difficulty Eyes: No Eye Pain, No Swelling, No Redness, No Foreign Body, No Discharge, No Vision Changes Cardiovascular : No Chest Pain, No SOB, No Dyspnea on Exertion, No Orthopnea, No Edema, No Palpitations Respiratory : No Cough, No Sputum, No Wheezing, No Smoke Exposure, No Dyspnea Gastrointestinal : No Nausea, No Vomiting, No Diarrhea, No Constipation, No abdominal Pain, No Hematochezia, No Melena Genitourinary : no irregular bleeding, No Dysuria, No Urinary Frequency, No Hematuria, No Urinary Incontinence, No Urgency, No Flank Pain, No Urinary Flow Changes, No Hesitancy Musculoskeletal : Complaining of left ankle pain and cervical spine pain No Myalgias, No Joint Swelling Skin : No Skin Lesions, No rash Neuro : No Weakness, No Numbness, No Paresthesias, No Loss of Consciousness, No Dizziness, No Headache Psych : No Anxiety/Panic, No Depression, No SI/HI/AH/VH, No Social Issues, Heme/Lymph: No Bruising, No Bleeding,No Lymphadenopathy Endocrine : No Polyuria, No Polydipsia, No Temperature Intolerance [facility] Past Medical History Medical History Antisocial personality disorder Schizophrenia Social History Social History Household Members: None Housing: Apartment Do you presently have visiting nurse or other home services: Yes Alcohol intake: never Patient Tobacco Use Status: Never used Tobacco e-Cigarette/Vaping Use: Never Used Second Hand Smoke Exposure: No Advance Directives: No Advance Directives Information Provided: Yes service: No Sexual orientation: Straight/Heterosexual Physical Exam Vital Signs: Vital Signs: Last Vital Signs Temp 97.8 F 01/01/23 18:20 Pulse 78 01/01/23 18:30 Resp 18 01/01/23 18:20 BP 149/85 H 01/01/23 18:20 Pulse Ox 100 01/01/23 18:20 O2 Del Method Room Air 01/01/23 18:20 BMI result Body Mass Index 29.4 Const: Other: Appearance: Alert. Oriented X3. No acute distress. Eyes: Pupils equal, round and reactive to light. ENT: Pharynx normal. Neck: Normal inspection. Neck supple. No lymph nodes noted. No crepitus, very mild C-spine tenderness, no palpable step-offs, normal range of motion CVS: Normal heart rate and rhythm. Pulses normal. Normal S1 and S2 Respiratory: No respiratory distress. Breath sounds normal. No Wheezing. No rales Abdomen: Soft and nontender. No rigidity. No distention. Skin: Skin warm and dry. There is a 10 cm superficial abrasion to the left forearm, bleeding controlled Extremities: No lower extremity edema. No Lacerations. No Rash Neuro: Oriented X 3. No motor deficit. No sensory deficit. Moving all extremities. No slurred speech. CN 2 through 12 grossly intact Psych: calm, cooperative, normal affect Course Course Course Narrative: -CT scan of the head and cervical spine pending, x-ray of the ankle pending. -patient is neurologically intact, vital stable Medications Administered Discontinued Medications Generic Name Dose Route Start Last Admin Trade Name Pretty PRN Reason Stop Dose Admin Acetaminophen 975 mg 01/01/23 19:02 01/01/23 19:23 Acetaminophen 325 Mg Tablet PO 01/01/23 19:03 975 mg ONCE ONE Administration Medical Decision Making Medical Decision Making MDM Narrative: -patient is neurologically intact -my interpretation of the head CT: No intracranial bleed -hypertension of ankle x-ray: No fracture, normal alignment -patient given p.o. Tylenol -has multiple contusions and superficial abrasions Differential Diagnosis Differential Diagnoses: The differential diagnosis associated with the presentation includes (Contusion, concussion, abrasion, intracranial bleed) Independent Interpretation I performed an independent interpretation of an: Plain X-Ray and CT Scan Radiology Impression Discussion of test interpretation with radiology: I have reviewed the radiologist's reading. Radiologist Impression: FINDINGS: There is no acute intracranial hemorrhage or evidence of territorial infarction. No abnormal mass effect or midline shift is seen. Rodrigues to white matter differentiation is well preserved. There is no abnormal attenuation within the brain parenchyma. The ventricles are normal in size. No extra-axial fluid collections are identified. The calvarium and scalp soft tissues are normal. The middle ear cavity and mastoid air cells are clear. The visualized paranasal sinuses are clear. ? CT/CT head/brain wo IV con IMPRESSION: No acute intracranial pathology. ? ? EXAMINATION: CT CERVICAL SPINE WITHOUT CONTRAST ? CLINICAL INFORMATION: Neck pain status-post fall.? ? COMPARISON: None available. ? TECHNIQUE: Contiguous axial imaging was performed through the cervical spine without intravenous administration of contrast. Multiplanar reformatted images are submitted. ? This CT examination was performed using dose optimization techniques as appropriate, variously including the following: *Automated exposure control *Adjustment of mA and/or kV according to patient size (this includes techniques or standardized protocols for targeted exams where dose is matched to indication/reason for exam; i.e. extremities or head) *Use of iterative reconstruction technique ? DLP: As above ? FINDINGS: There is mild anterior wedging of the C5 vertebral body, chronic in appearance. Vertebral body heights are otherwise unremarkable. Alignment is normal. The disc spaces are well-maintained. No acute fracture or spondylolisthesis is seen. There are small limbus vertebra anterior to the C4-C5 and C5-C6 disc spaces. Posteriorly at C6-C7, there is significant osteophytosis, possibly related to old trauma. There is slight adjacent vacuum disc phenomenon. No acute traumatic injury is seen. The posterior elements are intact. There is no prevertebral soft tissue swelling. The dens is intact. ? The bilateral lung apices are clear. ? IMPRESSION: There are chronic changes, including mild anterior wedging of the C5 vertebral body and old posterior spondylosis and degenerative disc disease at C6-C7. There is, however, no acute traumatic finding noted. ? FINDINGS: No fracture. Alignment is anatomic. No erosions. Joint spaces are maintained. Soft tissues are normal.? XR/XR ankle LT 2V IMPRESSION: Normal left ankle. ? Discharge Plan Discharge Clinical Impression: Abrasion of arm, left, Ankle contusion, Contusion of head Patient Disposition: Home, Self-Care Instructions: Contusion in Adults (ED) Additional Instructions: Please follow-up with your primary care physician tomorrow. If you have any worsening or new symptoms, please return to the emergency room or call 911 Prescriptions: New ibuprofen 400 mg tablet 400 mg PO Q8H PRN (Reason: pain) Qty: 14 0RF No Action albuterol sulfate [ProAir HFA] 90 mcg/actuation HFA aerosol inhaler 2 puff inhalation Q4-6H PRN (Reason: shortness of breath or wheezing) Qty: 8.5 0RF olanzapine 7.5 mg tablet 7.5 mg PO BEDTIME 30 Days Qty: 30 0RF Rx Instructions: Send to: [address] [address]
[2023-01-01] MEDS: Acetaminophen 325 MG TABLET 975 MG PO (19:23)
== END 2023-01-01 22:05 | disposition home or self-care (01) ==
PROVIDERS: Emergency Provider Emergency Medicine
DX: S90.02XA Contusion of left ankle, initial encounter (principal); S40.811A Abrasion of right upper arm, initial encounter; S00.93XA Contusion of unspecified part of head, initial encounter; V00.132A Skateboarder colliding with stationary object, initial encounter; M54.2 Cervicalgia; Y92.488 Other paved roadways as the place of occurrence of the external cause; Y93.51 Activity, roller skating (inline) and skateboarding; Y99.9 Unspecified external cause status
CPT/HCPCS: 70450; 72125; 73600; 99284

== ENCOUNTER 2023-03-11 16:07 | Emergency (ER) | payer MEDICAID, SELFPAY ==
--- NOTE | ~2023-03-11 | XR_ITS ---
Examination: Right hand and right foot. CLINICAL INDICATION: Pain status post punching bag. Pain right great toe. COMPARISON: None. TECHNIQUE: Right foot 3 views. Right hand 3 views. FINDINGS: RIGHT HAND: There is no visible acute fracture, dislocation our subluxation. No abnormal joint effusion. The soft tissues are normal. RIGHT FOOT: There is no visible acute fracture, dislocation or subluxation seen. The ankle mortise and subtalar joints are normal. XR/XR foot RT min 3V IMPRESSION: 1. Unremarkable right hand exam. 2. Unremarkable right foot exam. .
--- NOTE | ~2023-03-11 | XR_ITS ---
Examination: Right hand and right foot. CLINICAL INDICATION: Pain status post punching bag. Pain right great toe. COMPARISON: None. TECHNIQUE: Right foot 3 views. Right hand 3 views. FINDINGS: RIGHT HAND: There is no visible acute fracture, dislocation our subluxation. No abnormal joint effusion. The soft tissues are normal. RIGHT FOOT: There is no visible acute fracture, dislocation or subluxation seen. The ankle mortise and subtalar joints are normal. XR/XR hand RT min 3V IMPRESSION: 1. Unremarkable right hand exam. 2. Unremarkable right foot exam. .
[2023-03-11 16:18] VITALS: BP 130/74; PULSE 69; RESP 18; TEMP 36.3; O2SAT 98; BMI 26.1
--- NOTE | 2023-03-11 16:18 | ED_ITS ---
HPI - Extremity Problem General Chief complaint: Extremity Problem Stated complaint: R hand and foot pain, Time Seen by Provider: 03/11/23 16:29 Source: patient Mode of arrival: ambulatory Limitations: no limitations History of Present Illness HPI Narrative: Patient is a 27 year old assigned male at with a history of schizoaffective disorder presenting to the emergency department today with right hand and foot pain. Patient states that he was hitting a punching bag today and felt that he hit it the wrong way with his right hand and foot. Patient denies any dizziness, lightheadedness, abdominal pain, nausea, vomiting, fever, chills, blurry vision, double vision, loss of vision, chest pain, difficulty breathing, shortness of breath, back pain, night sweats, pain with urination, increased urinary frequency, increased urinary urgency, blood in his urine or stool, syncope or a near syncopal episode, bowel incontinence, bladder incontinence, bowel retention, bladder retention, or any other complaints at this time. MD Complaint: extremity pain Onset (ago): hour(s) Pain Consistency: constant Location: right, upper extremity and lower extremity Severity scale (1-10): 3 Quality: aching and dull Radiation: none Relieving factors: nothing Exacerbating factors: nothing Associated symptoms: denies other symptoms Related Data Previous Rx's Medication Instructions Recorded olanzapine 7.5 mg tablet 7.5 mg PO BEDTIME 30 days #30 tabs 11/20/21 albuterol sulfate 90 mcg/actuation 2 puff inhalation Q4-6H PRN 04/25/22 aerosol inhaler (ProAir HFA) shortness of breath or wheezing #8.5 grams ibuprofen 400 mg tablet 400 mg PO Q8H PRN pain #14 tabs 01/01/23 Allergies Allergy/AdvReac Type Severity Reaction Status Date / Time chlorpromazine Allergy Unknown UNKNOWN Verified 01/01/23 18:27 [From THORAZINE] haloperidol [From HALDOL] Allergy Unknown UNKNOWN Verified 01/01/23 18:27 Review of Systems Constitutional: Constitutional: Reports no additional constitutional complaints, Denies chills, Denies fever(s) and Denies night sweats Eyes: Eyes: Reports no additional eye complaints, Denies blurry vision, Denies change in vision, Denies diplopia, Denies eye discharge, Denies loss of vision and Denies eye pain ENT: Denies dizziness Cardiovascular: Cardiovascular: Reports no additional cardiovascular complaints, Denies chest pain, Denies lightheadedness, Denies Loss of Consciousness and Denies dyspnea Respiratory: Respiratory: Reports no additional respiratory complaints and Denies dyspnea Gastrointestinal: Gastrointestinal: Reports no additional gastrointestinal complaints, Denies abdominal pain, Denies melena, Denies hematochezia, Denies change in bowel habits and Denies change in stool character Genitourinary: Genitourinary: Reports no additional male genitourinary complaints, Denies hematuria, Denies oliguria, Denies difficulty urinating, Denies dysuria, Denies urinary frequency, Denies urinary hesitancy, Denies urinary incontinence and Denies urinary urgency Musculoskeletal: Musculoskeletal: Reports no additional musculoskeletal complaints, Denies numbness and Denies tingling Comments: right foot and right hand pain Neurologic: Denies dizziness, Denies loss of vision, Denies numbness and Denies tingling Psychiatric: Psychiatric: Reports no additional psychiatric complaints Endocrine: Endocrine: Reports no additional endocrine complaints Hematologic/Lymphatic: Hematologic/Lymphatic: Reports no additional hematologic/lymphatic complaints Allergic/Immunologic: Allergic/Immunologic: Reports no additional allergic/immunologic complaints [facility] Past Medical History Attestation statement: The following information was validated with the patient. Source: old records reviewed and nursing notes reviewed Medical History Antisocial personality disorder Schizophrenia Social History Social History Household Members: None Housing: Apartment Do you presently have visiting nurse or other home services: Yes Alcohol intake: current Alcohol intake frequency: holidays/special occasions only Patient Tobacco Use Status: Never used Tobacco e-Cigarette/Vaping Use: Never Used Second Hand Smoke Exposure: No Use of substances other than those prescribed or required for medical reasons: No Advance Directives: No Advance Directives Information Provided: No service: No Sexual orientation: Straight/Heterosexual Physical Exam Vital Signs: Vital Signs: Last Vital Signs Temp 97.4 F 03/11/23 16:18 Pulse 69 03/11/23 16:18 Resp 18 03/11/23 16:18 BP 130/74 03/11/23 16:18 Pulse Ox 98 03/11/23 16:18 O2 Del Method Room Air 03/11/23 16:18 BMI result Body Mass Index 26.1 Const: General: cooperative, no acute distress, alert and awake Nutritional Appearance: well nourished Orientation/consciousness: patient oriented x3 Limitations: no limitations HEENT: Head: Yes normal to inspection and Yes atraumatic Ears: hearing grossly normal bilaterally and external ears normal General nose exam: Normal external nose present, no nasal discharge noted and no epistaxis Face and sinus: Yes normal facial exam, No abrasion and No laceration Mouth: Normal oral and palatal mucosa present, no drooling and no muffled voice Eyes: General: appearance normal, both eyes and all related structures Periorbital: periorbital findings normal Eyelids: Yes eyelids normal Conjunctivae: conjunctivae normal Pupils: Equal, round and reactive pupils present EOM: EOMs intact bilaterally Neck: Neck: Yes normal visual inspection, Yes full ROM and Yes no lymphadenopathy Chest: Chest palpation & inspection: normal inspection of the chest Resp: Effort & Inspection: normal respiratory effort and able to speak in complete sentences GI: Inspection: Yes normal to inspection Neuro: General: patient oriented x3 and moves all extremities Cranial nerves: Yes Equal, round and reactive pupils present Cognition (Neuro): normal cognition Motor exam (neuro): 5/5 motor strength present throughout Sensory Exam: Normal double simultaneous stimulation for sensation Coordination: [id number] test normal Extrem: General: Yes normal to inspection, Yes full ROM and Yes capillary refill normal Psych: Appearance: grossly normal Mental Status: mental status grossly normal Affect: normal affect Attitude: cooperative Thought process: Normal thought process present Thought content: Normal thought content present Insight: Good insight present (Psych) Course Course Course Narrative: This is an RME: Additional HPI, ROS, PE not included below will be deferred to primary provider. This is a [id number], with a hx of schizoaffective disorder and antisocial personality disorder, presenting to the emergency department with a complaint of right hand and right foot pain since today. Patient states that he was punching a punching bag with his right hand and believes that he punched it the wrong way. He also reports that he kicked the bag as well and believes that he injured his right fifth toe. Plan: xr foot xr hand Medical Decision Making Medical Decision Making MDM Narrative: Patient is a 27 year old assigned male at with a history of schizoaffective disorder presenting to the emergency department today with right foot and hand pain. Patient's physical exam was unremarkable. Patient's right foot and hand x-rays showed no acute process. I explained my physical exam findings as well as all test results to the patient. I answered all questions asked by the patient. I stressed the importance of the patient taking his medication as prescribed. I stressed the importance of the patient following up with his primary care provider. I stressed the importance of the patient returning to the emergency department immediately if his symptoms were to worsen or if he were to develop any dizziness, shortness of breath, difficulty breathing, chest pain, blurry vision, loss of vision, nausea, vomiting, abdominal pain, fever, chills, back pain, or any other complaints. Patient verbalized agreement and understanding with this treatment plan and discharge. Differential Diagnosis Differential Diagnoses: The differential diagnosis associated with the pr esentation includes Right hand pain Right foot pain Independent Interpretation I performed an independent interpretation of an: Plain X-Ray Interpretation: My interpretation is in agreement with the radiologist's impression of these imaging studies. Examination: Right hand and right foot. CLINICAL INDICATION: Pain status post punching bag. Pain right great toe. COMPARISON: None. TECHNIQUE: Right foot 3 views. Right hand 3 views. FINDINGS: RIGHT HAND: There is no visible acute fracture, dislocation our subluxation. No abnormal joint effusion. The soft tissues are normal. RIGHT FOOT: There is no visible acute fracture, dislocation or subluxation seen. The ankle mortise and subtalar joints are normal. XR/XR hand RT min 3V IMPRESSION: 1. Unremarkable right hand exam. 2. Unremarkable right foot exam. . Dictated By: Taiwo Perkins MD Signed By: Electronically signed by Taiwo Perkins MD 03/11/23 8430 Radiology Impression Discussion of test interpretation with radiology: I have reviewed the radiologist's reading. Discharge Plan Discharge Clinical Impression: Hand pain, Acute foot pain Patient Disposition: Home, Self-Care Instructions: Arthralgia (ED) Additional Instructions: Take OTC tylenol and ibuprofen for pain. Follow up with your primary care provider. Return to the emergency department immediately if your symptoms worsen or if you develop any dizziness, shortness of breath, difficulty breathing, chest pain, blurry vision, loss of vision, nausea, vomiting, abdominal pain, fever, chills, back pain, or any other complaints. Prescriptions: No Action albuterol sulfate [ProAir HFA] 90 mcg/actuation HFA aerosol inhaler 2 puff inhalation Q4-6H PRN (Reason: shortness of breath or wheezing) Qty: 8.5 0RF olanzapine 7.5 mg tablet 7.5 mg PO BEDTIME 30 Days Qty: 30 0RF Rx Instructions: Send to: [address] [address] ibuprofen 400 mg tablet 400 mg PO Q8H PRN (Reason: pain) Qty: 14 0RF Stand Alone Forms: Work/School Release Print Language: Chadian
== END 2023-03-11 17:33 | disposition home or self-care (01) ==
PROVIDERS: Emergency Provider Emergency Medicine
DX: M79.641 Pain in right hand (principal); M79.671 Pain in right foot; Z79.899 Other long term (current) drug therapy
CPT/HCPCS: 73130; 73630; 99283

== ENCOUNTER 2023-04-23 12:56 | Emergency (ER) | payer MEDICAID, SELFPAY ==
[2023-04-23 13:08] VITALS: BP 134/79; PULSE 81; RESP 18; TEMP 36.7; O2SAT 98; BMI 26.8
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
[2023-04-23] MEDS: Diphth,Pertus(ACell),Tet Adult 0.5 ML SYRINGE IM (14:17)
== END 2023-04-23 14:44 | disposition home or self-care (01) ==
PROVIDERS: Emergency Provider Emergency Medicine
DX: S50.812A Abrasion of left forearm, initial encounter (principal); S50.811A Abrasion of right forearm, initial encounter; W22.8XXA Striking against or struck by other objects, initial encounter; F25.0 Schizoaffective disorder, bipolar type; F60.2 Antisocial personality disorder; Y93.89 Activity, other specified; Y92.038 Other place in apartment as the place of occurrence of the external cause; Y99.9 Unspecified external cause status
CPT/HCPCS: 90471; 90715; 99282; 99284

== ENCOUNTER 2023-06-24 09:17 | Emergency (ER) | payer MEDICAID, SELFPAY ==
--- NOTE | ~2023-06-24 | CT_ITS ---
Examination: CT brain, CT cervical spine and facial bones. CLINICAL INDICATION: Fall, pain. COMPARISON: CT brain and CT cervical spine 01/01/2023. TECHNIQUE: 5 mm thin axial and reformatted 2 mm thin sagittal and coronal images of brain were obtained without contrast. Axial 3 mm thin and reformatted 1.5 minutes thin sagittal coronal images of facial bones were obtained. Lastly axial 3 mm thin and reformatted 2 minutes thin sagittal coronal images of cervical spine were obtained. DLP 1405. This CT examination was performed using dose optimization technique as appropriate, variously including the following: Automated exposure control Adjustment of MA and/or KV according to patient size(this includes techniques or standardized protocols for targeted exams where dose is matched to indication/reason for exam; extremities or head. Use of iterative reconstruction techniques. FINDINGS: BRAIN: There is no acute intra-axial, extra-axial bleed, masses or midline shift. There is no acute infarction evolution. There is no edema. Rodrigues to white matter differentiation is maintained normal. The lateral ventricles are symmetrical in size and configuration without enlargement. Bone windows reveal no calvarial abnormality. Minimal mucoperiosteal thickening bilateral maxillary sinuses. Rest of the paranasal sinuses are well-aerated. There is no calvarial abnormality. FACIAL BONES: The paranasal sinuses are well-aerated with mild mucoperiosteal thickening of bilateral maxillary sinus. The bony sinus moreno, lamina papyracea and the cribriform plate is normal. There is mild deviation nasal septum to the left with small spur. The nasal cavity and nasopharyngeal airway is widely patent. Visualized optic globe, optic nerve and the intra and extra orbital soft tissue normal. The bony orbits are intact. Maxillofacial, nasal and mandibular bones and the soft tissues are normal. Bilateral TM joints are symmetrical and normal. Visualized parapharyngeal, prevertebral soft tissues are normal. The oral cavity and oropharynx and airways widely patent. No abnormality seen however limited in bilateral neck soft tissues. CERVICAL SPINE: There is mild straightening of cervical lordosis. The vertebral heights and alignment is normal. Is loss of C6-C7 disc height. Rest the disc heights, craniovertebral junction and the C1-C2 alignment is normal. There is a moderate size spur along the posterior inferior endplate. The thyroid lobes are symmetrical and normal. The central airways widely patent. The prevertebral and paravertebral soft tissues are normal. CT/CT cervical spine wo IV con IMPRESSION: No acute intracranial process seen. Bilateral chronic maxillary sinus inflammatory changes. No visible fracture, dislocation or soft tissue abnormality maxillofacial and nasal bones. Degenerative disc changes C6-C7 disc levels with large posterior disc osteophyte complex. No acute fracture or dislocation seen.
--- NOTE | 2023-06-24 09:23 | ED.GENADULT ---
HPI - General Adult General Chief complaint: Fall Stated complaint: FALL @2 AM,HEAD PAIN,+CCOLLAR PER EMS Time Seen by Provider: 06/24/23 09:23 Source: patient and EMS Mode of arrival: EMS Limitations: no limitations History of Present Illness HPI narrative: Patient is a 27 year old assigned male at with a history of shizoaffective disorder presenting to the emergency department today with with a headache and face pain. Patient states that he slipped and fell in his bathroom, hitting his face / head on the bathroom sink. Patient states that it happened around 2am. Patient denies any dizziness, lightheadedness, abdominal pain, nausea, vomiting, fever, chills, blurry vision, double vision, loss of vision, chest pain, difficulty breathing, shortness of breath, back pain, night sweats, pain with urination, increased urinary frequency, increased urinary urgency, blood in his urine or stool, syncope or a near syncopal episode, bowel incontinence, bladder incontinence, bowel retention, bladder retention, or any other complaints at this time. Onset (ago): hour(s) (7) Location: head and face Relieving factors: none Exacerbating factors: none Associated symptoms: denies other symptoms Treatments prior to arrival: none Related Data Previous Rx's Medication Instructions Recorded olanzapine 7.5 mg tablet 7.5 mg PO BEDTIME 30 days #30 tabs 11/20/21 albuterol sulfate 90 mcg/actuation 2 puff inhalation Q4-6H PRN 04/25/22 aerosol inhaler (ProAir HFA) shortness of breath or wheezing #8.5 grams ibuprofen 400 mg tablet 400 mg PO Q8H PRN pain #14 tabs 01/01/23 Allergies Allergy/AdvReac Type Severity Reaction Status Date / Time chlorpromazine Allergy Unknown UNKNOWN Verified 06/24/23 09:54 [From THORAZINE] haloperidol [From HALDOL] Allergy Unknown UNKNOWN Verified 06/24/23 09:54 Review of Systems Constitutional: Constitutional: Reports no additional constitutional complaints, Denies chills, Denies fever(s), Reports headache(s) and Denies night sweats Eyes: Eyes: Reports no additional eye complaints, Denies blurry vision, Denies change in vision, Denies diplopia, Denies eye discharge, Denies loss of vision and Denies eye pain ENT: Denies dizziness and Reports headache(s) Cardiovascular: Cardiovascular: Reports no additional cardiovascular complaints, Denies chest pain, Denies lightheadedness, Denies Loss of Consciousness and Denies dyspnea Respiratory: Respiratory: Reports no additional respiratory complaints and Denies dyspnea Gastrointestinal: Gastrointestinal: Reports no additional gastrointestinal complaints, Denies abdominal pain, Denies melena, Denies hematochezia, Denies change in bowel habits and Denies change in stool character Genitourinary: Genitourinary: Reports no additional male genitourinary complaints, Denies hematuria, Denies oliguria, Denies difficulty urinating, Denies dysuria, Denies urinary frequency, Denies urinary hesitancy, Denies urinary incontinence and Denies urinary urgency Musculoskeletal: Musculoskeletal: Reports no additional musculoskeletal complaints, Denies numbness and Denies tingling Neurologic: Denies dizziness, Reports headache(s), Denies loss of vision, Denies numbness and Denies tingling Psychiatric: Psychiatric: Reports no additional psychiatric complaints Endocrine: Endocrine: Reports no additional endocrine complaints Hematologic/Lymphatic: Hematologic/Lymphatic: Reports no additional hematologic/lymphatic complaints Allergic/Immunologic: Allergic/Immunologic: Reports no additional allergic/immunologic complaints [facility] Past Medical History Attestation statement: The following information was validated with the patient. Source: old records reviewed and nursing notes reviewed Onset Date is defined in the Problem List Problems that require an onset date and time if occurred within 24 hrs of arrival to the ED Aortic Dissection and Rupture; Neurologic impairment; Cardiopulmonary Arrest; Endotracheal Intubation; Insertion or Replacement of Mechanical Circulatory Assist Device Medical History Antisocial personality disorder Schizophrenia Social History Social History Household Members: None Housing: Apartment Do you presently have visiting nurse or other home services: Yes Alcohol intake: current Alcohol intake frequency: holidays/special occasions only Patient Tobacco Use Status: Never used Tobacco e-Cigarette/Vaping Use: Never Used Second Hand Smoke Exposure: No Advance Directives: No Advance Directives Information Provided: No service: No Sexual orientation: Straight/Heterosexual Physical Exam ED Vital Signs: Vital Signs - 24 hr 06/24/23 09:25 Temperature 98.6 F Pulse Rate 67 Respiratory Rate 18 Blood Pressure 123/75 Pulse Oximetry 97 Oxygen Delivery Method Room Air BMI result Body Mass Index 20.8 Const General: cooperative, no acute distress, alert and awake Nutritional Appearance: well nourished Orientation/consciousness: patient oriented x3 Limitations: no limitations [facility] Head images: 1. superficial abrasion, no active bleeding Ears: hearing grossly normal bilaterally and external ears normal General nose exam: Normal external nose present, no nasal discharge noted and no epistaxis Face and sinus: Yes normal facial exam, No abrasion and No laceration Mouth: Normal oral and palatal mucosa present, no drooling and no muffled voice Eyes General: appearance normal, both eyes and all related structures Periorbital: periorbital findings normal Eyelids: Yes eyelids normal Conjunctivae: conjunctivae normal Pupils: Equal, round and reactive pupils present EOM: EOMs intact bilaterally Neck Neck: Yes normal visual inspection, Yes full ROM and Yes no lymphadenopathy Chest Chest palpation & inspection: normal inspection of the chest Resp Effort & Inspection: normal respiratory effort and able to speak in complete sentences GI Inspection: Yes normal to inspection Neuro General: patient oriented x3 and moves all extremities Cranial nerves: Yes Equal, round and reactive pupils present Cognition (Neuro): normal cognition Motor exam (neuro): 5/5 motor strength present throughout Sensory Exam: Normal double simultaneous stimulation for sensation Coordination: [id number] test normal Extrem General: Yes normal to inspection, Yes full ROM and Yes capillary refill normal Psych Appearance: grossly normal Mental Status: mental status grossly normal Affect: normal affect Attitude: cooperative Thought process: Normal thought process present Thought content: Normal thought content present Insight: Good insight present (Psych) Medical Decision Making Medical Decision Making MDM Narrative: Patient is a 27 year old assigned male at with a history of schizoaffective disorder presenting to the emergency department today with a fall and scalp abrasion. Patient's physical exam was as noted in the physical exam portion of this note. Patient's CT head, c-spine, and facial bones showed no acute process. I explained my physical exam findings as well as all test results to the patient. I answered all questions asked by the patient. I stressed the importance of the patient taking his medication as prescribed. I stressed the importance of the patient following up with his primary care provider. I stressed the importance of the patient returning to the emergency department immediately if his symptoms were to worsen or if he were to develop any dizziness, shortness of breath, difficulty breathing, chest pain, blurry vision, loss of vision, nausea, vomiting, abdominal pain, fever, chills, back pain, or any other complaints. Patient verbalized agreement and understanding with this treatment plan and discharge. Differential Diagnosis Differential Diagnoses: The differential diagnosis associated with the presentation includes Fall Headache Abrasion Admission/Observation Consideration of admission/observation: Escalation of care including admission/observation considered Patient would have been admitted to the hospital had his work up had any findings where hospital admission was appropriate and his clinical presentation warranted hospital admission. Independent Interpretation I performed an independent interpretation of an: CT Scan Interpretation: My interpretation is in agreement with the radiologist's impression of these imaging studies. Examination: CT brain, CT cervical spine and facial bones. CLINICAL INDICATION: Fall, pain. COMPARISON: CT brain and CT cervical spine 01/01/2023. TECHNIQUE: 5 mm thin axial and reformatted 2 mm thin sagittal and coronal images of brain were obtained without contrast. Axial 3 mm thin and reformatted 1.5 minutes thin sagittal coronal images of facial bones were obtained. Lastly axial 3 mm thin and reformatted 2 minutes thin sagittal coronal images of cervical spine were obtained. DLP 1405. This CT examination was performed using dose optimization technique as appropriate, variously including the following: Automated exposure control Adjustment of MA and/or KV according to patient size(this includes techniques or standardized protocols for targeted exams where dose is matched to indication/reason for exam; extremities or head. Use of iterative reconstruction techniques. FINDINGS: BRAIN: There is no acute intra-axial, extra-axial bleed, masses or midline shift. There is no acute infarction evolution. There is no edema. Rodrigues to white matter differentiation is maintained normal. The lateral ventricles are symmetrical in size and configuration without enlargement. Bone windows reveal no calvarial abnormality. Minimal mucoperiosteal thickening bilateral maxillary sinuses. Rest of the paranasal sinuses are well-aerated. There is no calvarial abnormality. FACIAL BONES: The paranasal sinuses are well-aerated with mild mucoperiosteal thickening of bilateral maxillary sinus. The bony sinus moreno, lamina papyracea and the cribriform plate is normal. There is mild deviation nasal septum to the left with small spur. The nasal cavity and nasopharyngeal airway is widely patent. Visualized optic globe, optic nerve and the intra and extra orbital soft tissue normal. The bony orbits are intact. Maxillofacial, nasal and mandibular bones and the soft tissues are normal. Bilateral TM joints are symmetrical and normal. Visualized parapharyngeal, prevertebral soft tissues are normal. The oral cavity and oropharynx and airways widely patent. No abnormality seen however limited in bilateral neck soft tissues. CERVICAL SPINE: There is mild straightening of cervical lordosis. The vertebral heights and alignment is normal. Is loss of C6-C7 disc height. Rest the disc heights, craniovertebral junction and the C1-C2 alignment is normal. There is a moderate size spur along the posterior inferior endplate. The thyroid lobes are symmetrical and normal. The central airways widely patent. The prevertebral and paravertebral soft tissues are normal. CT/CT head/brain wo IV con IMPRESSION: No acute intracranial process seen. Bilateral chronic maxillary sinus inflammatory changes. No visible fracture, dislocation or soft tissue abnormality maxillofacial and nasal bones. Degenerative disc changes C6-C7 disc levels with large posterior disc osteophyte complex. No acute fracture or dislocation seen. Dictated By: Taiwo Perkins MD Signed By: Electronically signed by Taiwo Perkins MD 06/24/23 1100 Radiology Impression Discussion of test interpretation with radiology: I have reviewed the radiologist's reading. Independent Historian Clinical information obtained from an independent historian. History obtained from or confirmed by: EMS (EMS provided additional history and confirmed the history provided by the patient.) Discharge Plan Discharge Clinical Impression: Abrasion of scalp, Fall Patient Disposition: Home, Self-Care Instructions: Abrasion (ED), Fall Prevention (ED) Additional Instructions: Follow up with your primary care provider. Return to the emergency department immediately if your symptoms worsen or if you develop any dizziness, shortness of breath, difficulty breathing, chest pain, blurry vision, loss of vision, nausea, vomiting, abdominal pain, fever, chills, back pain, or any other complaints. Prescriptions: No Action albuterol sulfate [ProAir HFA] 90 mcg/actuation HFA aerosol inhaler 2 puff inhalation Q4-6H PRN (Reason: shortness of breath or wheezing) Qty: 8.5 0RF olanzapine 7.5 mg tablet 7.5 mg PO BEDTIME 30 Days Qty: 30 0RF Rx Instructions: Send to: [address] [address] ibuprofen 400 mg tablet 400 mg PO Q8H PRN (Reason: pain) Qty: 14 0RF Referrals: [facility] [[place] Group] (Call to establish and follow up with a primary care provider. If you already have a primary care provider, please follow up with them.) [facility] [Provider Group] (Call to establish and follow up with a primary care provider. If you already have a primary care provider, please follow up with them.) [facility] [Provider Group] (Call to establish and follow up with a primary care provider. If you already have a primary care provider, please follow up with them.) Print Language: Indonesian
[2023-06-24 09:25] VITALS: BP 123/75; BP 158/96; PULSE 58; PULSE 67; RESP 18; TEMP 37; O2SAT 97; O2SAT 99; BMI 20.8
--- NOTE | 2023-06-24 09:55 | PC.NURSE ---
pt a+o x3, vss. pt was brought to er from home via ambulance. he reports that he slipped on water and fell face first around 2 am this morning. pt says he hit his face on the side of his bathroom sink. he reports 10/10 head, neck and right side pain. he also reports dizziness and on and blurry vision. Loc after fall. he reports that he got himself up this morning and called 911.
== END 2023-06-24 11:23 | disposition home or self-care (01) ==
PROVIDERS: Emergency Provider Emergency Medicine; PCP Psychiatry & Neurology Psychiatry
DX: S00.01XA Abrasion of scalp, initial encounter (principal); R51.9 Headache, unspecified; M54.2 Cervicalgia; W01.10XA Fall on same level from slipping, tripping and stumbling with subsequent striking against unspecified object, initial encounter; Y93.9 Activity, unspecified; Y92.9 Unspecified place or not applicable; Y99.9 Unspecified external cause status
CPT/HCPCS: 70450; 70486; 72125; 99282; 99284

== ENCOUNTER 2024-02-10 21:34 | Emergency (ER) | payer MEDICAID, SELFPAY ==
--- NOTE | ~2024-02-10 | XR_ITS ---
EXAMINATION: XR ABDOMEN KUB CLINICAL INDICATION: Question constipation COMPARISON: None available. TECHNIQUE: AP view of the abdomen. FINDINGS: Bowel gas pattern is nonobstructive. Moderate amount of stool is present in the colon. Limited evaluation for free air with supine positioning. Tiny calcification in the left pelvis may represent a phlebolith though a distal ureteral calculus would be difficult to exclude in the proper clinical setting. Included lung bases appear well aerated. No acute osseous findings are seen. XR/XR KUB IMPRESSION: 1. Moderate volume of stool in the colon. Nonobstructive bowel gas pattern. 2. Tiny calcification in the left pelvis may represent a phlebolith though a distal ureteral calculus would be difficult to exclude in the proper clinical setting. Electronically signed by: Jordon Pearson MD 02/11/2024 01:26 AM EDT RP
[2024-02-10 21:36] VITALS: BP 137/117; PULSE 80; RESP 18; TEMP 36.8; O2SAT 100; BMI 25.7
[2024-02-10 21:54] LABS: Hematocrit 40.4 % (42.0-52.0); Hemoglobin 14.2 g/dl (14.0-18.0); Mean Corpuscular HGB Conc 35.1 g/dl (31.0-36.0); Mean Corpuscular Hemoglobin 33.3 pg (27.0-33.0); Mean Corpuscular Volume 94.6 fL (80.0-98.0); Mean Platelet Volume 9.6 fL (9.4-12.4); Platelet Count 243 X10*3/uL (160-400); Red Blood Count 4.27 X10*6/uL (4.60-5.80); Red Cell Distribution Width 13.4 % (11.0-16.0); White Blood Count 7.8 X10*3/uL (4.8-10.8)
[2024-02-10 22:11] LABS: Alanine Aminotransferase 26 U/L (0-40); Albumin Level 4.2 g/dL (3.5-5.0); Alkaline Phosphatase 53 U/L (39-117); Anion Gap 13 (12-20); Aspartate Amino Transferase 38 U/L (5-37); Bilirubin Total 0.6 mg/dL (0.0-1.0); Blood Urea Nitrogen 15 mg/dL (9-16); Calcium 9.8 mg/dL (8.4-10.2); Carbon Dioxide 27 mmol/L (22-29); Chloride 107 mmol/L (96-108); Creatinine Clr Calc Pharmacy 102.8; Estimated Glomerular Filt Rate > 60; Glucose Random 84 mg/dL (60-115); Lipase 17 U/L (8-78); Potassium 3.8 mmol/L (3.3-5.1); Sodium 143 mmol/L (135-145); Total Protein 6.9 g/dL (6.5-8.0)
[2024-02-10 23:00] VITALS: BP 137/82; PULSE 75; RESP 18; TEMP 37.2; O2SAT 95
[2024-02-10 23:10] LABS: Appearance Urine Clear; Color Urine Yellow; Glucose Urine UA Negative (Negative); Leukocyte Esterase Urine Negative (Negative); Nitrite Urine Negative (Negative); Specific Gravity - Urine 1.015 (1.005-1.025); Urine Blood Negative (Negative); Urine Ketones Negative (Negative); Urine Protein Negative (Neg-Trace)
--- NOTE | 2024-02-10 23:20 | ED_ITS ---
HPI - Abdominal Pain General Chief Complaint: Abdominal Pain Stated Complaint: abd pain Time Seen by Provider: 02/10/24 22:47 Source: patient Mode of arrival: ambulatory Limitations: no limitations History of Present Illness ED Provider: Dr. Yaneth Morgan HPI narrative: Patient comes to the emergency room complaining of abdominal pain, states that he feels constipated for about a week. Patient states it feels more like spasms, denies nausea vomiting or diarrhea, denies obstipation, no UTI symptoms. Patient reports feeling hungry, states that he does not have any money to buy food. Related Data Previous Rx's ?Medication ?Instructions ?Recorded olanzapine 7.5 mg tablet 7.5 mg PO BEDTIME 30 days #30 tabs 11/20/21 albuterol sulfate 90 mcg/actuation 2 puff inhalation Q4-6H PRN 04/25/22 aerosol inhaler (ProAir HFA) shortness of breath or wheezing #8.5 grams ibuprofen 400 mg tablet 400 mg PO Q8H PRN pain #14 tabs 01/01/23 Allergies Allergy/AdvReac Type Severity Reaction Status Date / Time chlorpromazine AdvReac Unknown Hives Verified 02/10/24 21:41 [From THORAZINE] haloperidol [From HALDOL] AdvReac Unknown Hives Verified 02/10/24 21:41 Review of Systems Review of Systems Constitutional : No Weight loss, No Fever, No Chills, No Night Sweats, No Fatigue, No Malaise ENT/Mouth : No Hearing loss, No Ear Pain, No Nasal Congestion, No Sinus Pain, No Hoarseness, No sore throat, No Rhinorrhea, No Swallowing Difficulty Eyes: No Eye Pain, No Swelling, No Redness, No Foreign Body, No Discharge, No Vision Changes Cardiovascular : No Chest Pain, No SOB, No Dyspnea on Exertion, No Orthopnea, No Edema, No Palpitations Respiratory : No Cough, No Sputum, No Wheezing, No Smoke Exposure, No Dyspnea Gastrointestinal : No Nausea, No Vomiting, No Diarrhea, No Constipation, complaining of abdominal discomfort/cramping and getting hungry Genitourinary : no irregular bleeding, No Dysuria, No Urinary Frequency, No Hematuria, No Urinary Incontinence, No Urgency, No Flank Pain, No Urinary Flow Changes, No Hesitancy Musculoskeletal : No joint pain, No Myalgias, No Joint Swelling Skin : No Skin Lesions, No rash Neuro : No Weakness, No Numbness, No Paresthesias, No Loss of Consciousness, No Dizziness, No Headache Psych : No Anxiety/Panic, No Depression, No SI/HI/AH/VH, No Social Issues, Heme/Lymph: No Bruising, No Bleeding,No Lymphadenopathy Endocrine : No Polyuria, No Polydipsia, No Temperature Intolerance [facility] Past Medical History Medical History Antisocial personality disorder Schizophrenia Social History Social History Household Members: None Housing: Apartment Do you presently have visiting nurse or other home services: Yes Alcohol intake: current Alcohol intake frequency: holidays/special occasions only Patient Tobacco Use Status: Never used Tobacco e-Cigarette/Vaping Use: Never Used Second Hand Smoke Exposure: No Advance Directives: No Advance Directives Information Provided: Yes Do you have a plan to hurt others: No Plan service: No Sexual orientation: Straight/Heterosexual Physical Exam ED Vital Signs: Vital Signs - 24 hr 02/10/24 21:36 02/10/24 23:00 02/10/24 23:52 Temperature 98.3 F 99.0 F 99.0 F Pulse Rate 80 75 73 Respiratory Rate 18 18 16 Blood Pressure 137/117 H 137/82 135/81 Pulse Oximetry 100 95 96 Oxygen Delivery Method Room Air Room Air Room Air BMI result Body Mass Index 25.7 Const Other: Appearance: Alert. Oriented X3. No acute distress. Eyes: Pupils equal, round and reactive to light. ENT: Pharynx normal. Neck: Normal inspection. Neck supple. No lymph nodes noted. No crepitus CVS: Normal heart rate and rhythm. Pulses normal. Normal S1 and S2 Respiratory: No respiratory distress. Breath sounds normal. No Wheezing. No rales Abdomen: Soft and nontender. No rigidity. No distention. Skin: Skin warm and dry. Normal skin color. Normal skin turgor. Extremities: No lower extremity edema. No Lacerations. No Rash Neuro: Oriented X 3. No motor deficit. No sensory deficit. Moving all extremities. No slurred speech. CN 2 through 12 grossly intact Psych: calm, cooperative, normal affect Medical Decision Making Medical Decision Making MDM Narrative: My interpretation of labs: Normal white blood cell count, baseline hematology and chemistry, normal LFTs, normal lipase, urinalysis negative for UTI -KUB my interpretation, normal air gas pattern, no significant amount of stool Differential Diagnosis Differential Diagnoses: The differential diagnosis associated with the presentation includes (Complication, functional abdominal pain, hungry) Lab Data MDM Lab Attestation statement: I reviewed the patient's lab results. 02/10/24 21:48 02/10/24 21:48 Labs: Lab Results 02/10/24 02/10/24 Range/Units 21:48 23:04 WBC 7.8 (4.8-10.8) X10*3/uL RBC 4.27 L (4.60-5.80) X10*6/uL Hgb 14.2 (14.0-18.0) g/dl Hct 40.4 L (42.0-52.0) % MCV 94.6 (80.0-98.0) fL MCH 33.3 H (27.0-33.0) pg MCHC 35.1 (31.0-36.0) g/dl RDW 13.4 (11.0-16.0) % Plt Count 243 (160-400) X10*3/uL MPV 9.6 (9.4-12.4) fL Absolute Nucleated RBC 0.000 (0.0-0.012) X10*3/uL Nucleated RBC % (auto) 0.0 (0.0-0.2) /100WBC Sodium 143 (135-145) mmol/L Potassium 3.8 (3.3-5.1) mmol/L Chloride 107 (96-108) mmol/L Carbon Dioxide 27 (22-29) mmol/L Anion Gap 13 (12-20) BUN 15 (9-16) mg/dL Creatinine 1.05 (0.5-1.4) mg/dL Estim Creat Clear Calc 102.8 Estimated GFR > 60 Random Glucose 84 (60-115) mg/dL Calcium 9.8 (8.4-10.2) mg/dL Total Bilirubin 0.6 (0.0-1.0) mg/dL AST 38 H (5-37) U/L ALT 26 (0-40) U/L Alkaline Phosphatase 53 (39-117) U/L Total Protein 6.9 (6.5-8.0) g/dL Albumin 4.2 (3.5-5.0) g/dL Lipase 17 (8-78) U/L Urine Color Yellow Urine Appearance Clear Urine pH 8.0 (5.0-9.0) Ur Specific [place] 1.015 (1.005-1.025) Urine Protein Negative (Neg-Trace) mg/dL Urine Glucose (UA) Negative (Negative) mg/dL Urine Ketones Negative (Negative) mg/dL Urine Blood Negative (Negative) Urine Nitrite Negative (Negative) Ur Leukocyte Esterase Negative (Negative) Discharge Plan Discharge Clinical Impression: Abdominal pain Patient Disposition: Home, Self-Care Instructions: Abdominal Pain (ED) Additional Instructions: Please follow-up with your primary care physician tomorrow. If you have any worsening or new symptoms, please return to the emergency room or call 911 Prescriptions: No Action albuterol sulfate [ProAir HFA] 90 mcg/actuation HFA aerosol inhaler 2 puff inhalation Q4-6H PRN (Reason: shortness of breath or wheezing) Qty: 8.5 0RF olanzapine 7.5 mg tablet 7.5 mg PO BEDTIME 30 Days Qty: 30 0RF Rx Instructions: Send to: [address] [address] ibuprofen 400 mg tablet 400 mg PO Q8H PRN (Reason: pain) Qty: 14 0RF Print Language: Belarusian
[2024-02-10 23:52] VITALS: BP 135/81; PULSE 73; RESP 16; TEMP 37.2; O2SAT 96
[2024-02-11 01:44] VITALS: BP 128/77; PULSE 72; RESP 16; TEMP 36.6; O2SAT 96
--- NOTE | 2024-02-11 01:45 | MHC.EDTECH ---
Patient was given chicken salad sandwich and popeye niranjan for snack ,vitals taken .
[2024-02-11 01:53] VITALS: BP 128/77; PULSE 72; RESP 16; TEMP 36.6; O2SAT 96
== END 2024-02-11 01:54 | disposition home or self-care (01) ==
PROVIDERS: Emergency Provider Emergency Medicine
DX: R10.9 Unspecified abdominal pain (principal); F20.9 Schizophrenia, unspecified
CPT/HCPCS: 36415; 74018; 80053; 81003; 83690; 85027; 99283

== ENCOUNTER 2024-02-28 19:10 | Emergency (ER) | payer MEDICAID, SELFPAY ==
[2024-02-28 19:15] VITALS: BMI 22.8
--- NOTE | 2024-02-28 19:31 | PC.NURSE ---
Addendum entered by Paty Brooke 02/28/24 20:00: [facility] and Security unable to locate pt. Addendum entered by Paty Brooke 02/28/24 19:33: Security attempting to locate pt. Original Note: T/w was notified by the triage nurse that this patient fled during triage. T/w contacting [facility] due to concerns that this patient checked in for SI. [facility] will call back with updates if able to locate the patient.
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
--- NOTE | 2024-02-28 21:32 | PC.NURSE ---
T/w contacting pt via his cell phone. Pt answering, yelling at t/w, states GET NEW STAFF. Pt expressing frustration at his interaction with the triage nurse, states she was asking him repeated questions. Pt states YOU GUYS OBVIOUSLY DONT CARE ABOUT MY MENTAL HEALTH ISSUES. T/w expressing concern for pt, asking him to return to the ED for further care/treatment. T/w explained to pt that a room was being held for him once he was able to located to get assistance with his mental health. Pt continued to yell/swear at this RN and hung up prior to giving any information regarding his location. This RN calling [facility] back, again expressing concern for pts well being. [facility] states that pt does not meet criteria to ping his phone at this time. IR replied by continuity coordinator.
== END 2024-02-28 21:47 | disposition left against medical advice (07) ==
PROVIDERS: Emergency Provider Emergency Medicine
DX: R45.851 Suicidal ideations (principal); Z59.00 Homelessness unspecified
CPT/HCPCS: 99283; 99285

== ENCOUNTER 2024-02-29 03:11 | Emergency (ER) | payer MEDICAID, SELFPAY ==
[2024-02-29 03:21] VITALS: BP 124/82; PULSE 78; RESP 20; TEMP 36.9; O2SAT 98; BMI 25.6
--- NOTE | 2024-02-29 03:44 | PC.NURSE ---
Addendum entered by Jillian Sarkar 02/29/24 04:31: pt given sandwich and PO fluids per request. Addendum entered by Jillian Sarkar 02/29/24 04:05: Pt yelling/agitated at nuclear medicine pet ct technologist about blood work needing to be drawn before seeing a provider. Pt upset about belonging being put away, upset about girlfriend not being notified. Pt reminded of conversation with triage nurse about policy and plan. Pt redirectable and agreeable with lab work. Pt denies SI/HI. Pt reports worsening symptoms since June, Pt has since been hearing overlapping whispering voices . Reports not getting any sleep. Pt reports he has not taken zyprexa since June and has not picked up a two week supply that was prescribed here . Pt reports he has an appointment with [facility] in late March, but girlfriend noticed changes and wanted Pt to be seen sooner. Addendum entered by Jillian Sarkar 02/29/24 04:04: Pt upset that he has a sitter at bedside. Original Note: pt changed over by security, belongings in C4.
[2024-02-29 04:09] LABS: MANUAL DIFF FLAG NO
[2024-02-29 04:10] LABS: Basophils Percent Auto 0.4 % (0-2); Eosinophils Absolute Auto 0.1 X10*3/uL (0.0-0.4); Eosinophils Percent Auto 1.6 % (0-4); Hematocrit 39.6 % (42.0-52.0); Hemoglobin 14.1 g/dl (14.0-18.0); Imm Gran Abs Auto 0.01 X10*3/uL (0.00-0.03); Imm Gran Pct Auto 0.1 % (0.0-0.4); Lymphocytes Absolute Auto 2.1 X10*3/uL (1.2-4.9); Lymphocytes Percent Auto 31.8 % (20-40); Mean Corpuscular HGB Conc 35.6 g/dl (31.0-36.0); Mean Corpuscular Hemoglobin 32.9 pg (27.0-33.0); Mean Corpuscular Volume 92.5 fL (80.0-98.0); Mean Platelet Volume 9.6 fL (9.4-12.4); Monocytes Absolute Auto 0.7 X10*3/uL (0.1-1.2); Monocytes Percent Auto 10.3 % (2-11); Neutrophils Absolute Auto 3.8 x10*3/uL (2.0-8.3); Neutrophils Percent Auto 55.8 % (45-73); Platelet Count 225 X10*3/uL (160-400); Red Blood Count 4.28 X10*6/uL (4.60-5.80); Red Cell Distribution Width 12.7 % (11.0-16.0); White Blood Count 6.7 X10*3/uL (4.8-10.8)
--- NOTE | 2024-02-29 04:22 | MHC.EDTECH ---
Late entry,Patient was brought in from triage,security at bedside and changed pt over to crisis attire,parts driver Yessenia assisted,belongings list completed and security locked all belongings in the the closet on shelf C4, labs were drawn and sent to lab.1:1 sitter at bedside for safety
[2024-02-29 04:25] LABS: Alanine Aminotransferase 17 U/L (0-40); Albumin Level 4.1 g/dL (3.5-5.0); Alkaline Phosphatase 48 U/L (39-117); Anion Gap 12 (12-20); Aspartate Amino Transferase 21 U/L (5-37); Bilirubin Total 1.5 mg/dL (0.0-1.0); Blood Urea Nitrogen 13 mg/dL (9-16); Calcium 9.3 mg/dL (8.4-10.2); Carbon Dioxide 23 mmol/L (22-29); Chloride 106 mmol/L (96-108); Creatinine Clr Calc Pharmacy 111.1; Estimated Glomerular Filt Rate > 60; Ethanol < 10 mg/dL; Glucose Random 88 mg/dL (60-115); Potassium 3.4 mmol/L (3.3-5.1); Sodium 138 mmol/L (135-145); Total Protein 6.7 g/dL (6.5-8.0)
[2024-02-29 04:54] LABS: Appearance Urine Clear; Color Urine Yellow; Glucose Urine UA Negative (Negative); Leukocyte Esterase Urine Negative (Negative); Nitrite Urine Negative (Negative); PH 5.5 (5.0-9.0); Urine Blood Negative (Negative); Urine Ketones Trace mg/dL (Negative); Urine Protein Negative (Neg-Trace)
[2024-02-29 05:08] LABS: Amphetamine Screen Urine Not Detected (Not Detect); Barbiturates, Urine Not Detected (Not Detect); Benzodiazepines Screen Urine Not Detected (Not Detect); Buprenorphine Scr Not Detected (Not Detect); Cannabinoid Screen Urine POSITIVE (Not Detect); Cocaine Screen Urine Not Detected (Not Detect); Fentanyl, urine Not Detected (Not Detect); Methadone Screen, Urine Not Detected (Not Detect); Opiate Screen Urine Not Detected (Not Detect); Oxycodone Screen Urine Not Detected (Not Detect); Phencyclidine Screen Urine Not Detected (Not Detect)
[2024-02-29 06:10] VITALS: RESP 16
--- NOTE | 2024-02-29 06:18 | MHC.EDTECH ---
Hourly rounds completed,patient is sleeping,resp.rate WNL, sitter at bedside for safety
--- NOTE | 2024-02-29 07:12 | ED_ITS ---
HPI - General Adult General Chief complaint: Psychiatric Symptoms Stated complaint: looking for diagnosis/mental health issues? Time Seen by Provider: 02/29/24 06:42 Source: patient Mode of arrival: ambulatory Limitations: no limitations History of Present Illness ED Provider: Hanna HPI narrative: 28 yo m hx of schizoaffective do ( bipolar type) presents requesting psych testing patient reports he has been seeing things, feeling anxious, not eating well or sleeping x 2 weeks. He reports he is hearing whispers but unclear what they are saying. Per patient girlfriend thinks hes depressed. Reports he would like a full psych evaluation, and may need paperwork filled out for disability. Denies medical complaints at this time such as cp, sob, n/v/d, tucker, vision changes, dizziness, weakness, fevers, chills. Related Data Previous Rx's ?Medication ?Instructions ?Recorded olanzapine 7.5 mg tablet 7.5 mg PO BEDTIME 30 days #30 tabs 11/20/21 albuterol sulfate 90 mcg/actuation 2 puff inhalation Q4-6H PRN 04/25/22 aerosol inhaler (ProAir HFA) shortness of breath or wheezing #8.5 grams ibuprofen 400 mg tablet 400 mg PO Q8H PRN pain #14 tabs 01/01/23 Allergies Allergy/AdvReac Type Severity Reaction Status Date / Time chlorpromazine AdvReac Unknown Hives Verified 02/29/24 03:35 [From THORAZINE] haloperidol [From HALDOL] AdvReac Unknown Hives Verified 02/29/24 03:35 Review of Systems 2 Review of Systems: Yes all other systems are reviewed and are negative [facility] Past Medical History Attestation statement: The following information was validated with the patient. Source: old records reviewed and nursing notes reviewed Medical History Antisocial personality disorder Schizophrenia Social History Social History Household Members: None Housing: Apartment Do you presently have visiting nurse or other home services: Yes Alcohol intake: former Patient Tobacco Use Status: Never used Tobacco Smoked in Last 30 Days: No e-Cigarette/Vaping Use: Never Used Second Hand Smoke Exposure: No Use of substances other than those prescribed or required for medical reasons: Yes Substance Use Type: Marijuana Advance Directives: No Advance Directives Information Provided: Yes Do you have a plan to hurt others: No Plan service: No Sexual orientation: Straight/Heterosexual Physical Exam ED Vital Signs: Vital Signs - 24 hr 02/29/24 03:21 02/29/24 06:10 02/29/24 10:45 Temperature 98.4 F 97.6 F Pulse Rate 78 65 Respiratory Rate 20 16 18 Blood Pressure 124/82 149/81 H Pulse Oximetry 98 96 Oxygen Delivery Method Room Air Room Air BMI result Body Mass Index 25.6 vss Appearance: Alert.? Oriented X3.? No acute distress.? Head: Normocephalic, atraumatic, no step-offs or deformities Eyes: Pupils equal, round and reactive to light.? CVS: Normal heart rate and rhythm.? Pulses normal.? Respiratory: No respiratory distress.? Breath sounds normal.? Abdomen: Soft and nontender.? Skin: Skin warm and dry.? Normal skin color.? Normal skin turgor.? Extremities: No lower extremity edema.? No calf ttp. 5/5 strength to bilateral upper and lower extremities Neuro: Oriented X 3.? No motor deficit.? No sensory deficit. CN 2-12 intact Course Reevaluation(s) Reevaluation #1: CBC unremarkable. [place] no acute electrolyte abnormalities. Bili higher than usual no N/V/D, abd pain no need for imaging at this time. UA clean. U tox + for marijuana negative ethanol. Cooperative and calm. Patient spoke to care team states I need meds , care team looked into this he has 2 weeks worth of zyprexa rx by [facility] that patient has not picked up and has been encouraged to do so and take them, says he will. Will follow up with outpatient providers. Not SI or HI. No hallucinaitons I agree w/ this plan. Time: 11:00 Medical Decision Making Medical Decision Making [facility] Narrative: 0715 28 yo m presents requesting medical clearance PE- benign Hx and pe concerning for antisocial personality d/o vs schizoaffective d/o vs bipolar d/o. No signs of distress. No signs of OD or w/drawl. No signs of metabolic derrangments Plan- labs, urine, care team eval Differential Diagnosis Differential Diagnoses: The differential diagnosis associated with the presentation includes Hx and pe concerning for antisocial personality d/o vs schizoaffective d/o vs bipolar d/o. No signs of distress. No signs of OD or w/drawl. No signs of metabolic derrangments Admission/Observation Consideration of admission/observation: Escalation of care including admission/observation considered Possible Lab Data MDM Lab Attestation statement: I reviewed the patient's lab results. 02/29/24 04:05 02/29/24 04:05 Labs: Lab Results 02/29/24 02/29/24 02/29/24 Range/Units 04:05 04:48 04:49 WBC 6.7 (4.8-10.8) X10*3/uL RBC 4.28 L (4.60-5.80) X10*6/uL Hgb 14.1 (14.0-18.0) g/dl Hct 39.6 L (42.0-52.0) % MCV 92.5 (80.0-98.0) fL MCH 32.9 (27.0-33.0) pg MCHC 35.6 (31.0-36.0) g/dl RDW 12.7 (11.0-16.0) % Plt Count 225 (160-400) X10*3/uL MPV 9.6 (9.4-12.4) fL Immature Gran % (Auto) 0.1 (0.0-0.4) % Neut % (Auto) 55.8 (45-73) % Lymph % (Auto) 31.8 (20-40) % [place] % (Auto) 10.3 (2-11) % Eos % (Auto) 1.6 (0-4) % Baso % (Auto) 0.4 (0-2) % Lymph # (Auto) 2.1 (1.2-4.9) X10*3/uL [place] # (Auto) 0.7 (0.1-1.2) X10*3/uL Eos # (Auto) 0.1 (0.0-0.4) X10*3/uL Baso # (Auto) 0.0 (0.0-0.2) X10*3/uL Abs Immat Gran (auto) 0.01 (0.00-0.03) X10*3/uL Absolute Neuts (auto) 3.8 (2.0-8.3) x10*3/uL Absolute Nucleated RBC 0.000 (0.0-0.012) X10*3/uL Nucleated RBC % (auto) 0.0 (0.0-0.2) /100WBC Sodium 138 (135-145) mmol/L Potassium 3.4 (3.3-5.1) mmol/L Chloride 106 (96-108) mmol/L Carbon Dioxide 23 (22-29) mmol/L Anion Gap 12 (12-20) BUN 13 (9-16) mg/dL Creatinine 0.94 (0.5-1.4) mg/dL Estim Creat Clear Calc 111.1 Estimated GFR > 60 Random Glucose 88 (60-115) mg/dL Calcium 9.3 (8.4-10.2) mg/dL Total Bilirubin 1.5 H (0.0-1.0) mg/dL AST 21 (5-37) U/L ALT 17 (0-40) U/L Alkaline Phosphatase 48 (39-117) U/L Total Protein 6.7 (6.5-8.0) g/dL Albumin 4.1 (3.5-5.0) g/dL Urine Color Yellow Urine Appearance Clear Urine pH 5.5 (5.0-9.0) Ur Specific [place] 1.020 (1.005-1.025) Urine Protein Negative (Neg-Trace) mg/dL Urine Glucose (UA) Negative (Negative) mg/dL Urine Ketones Trace (Negative) mg/dL Urine Blood Negative (Negative) Urine Nitrite Negative (Negative) Ur Leukocyte Esterase Negative (Negative) Urine Opiates Screen Not Detected (Not Detect) Ur Buprenorphine Scrn Not Detected (Not Detect) ng/mL Ur Oxycodone Screen Not Detected (Not Detect) ng/mL Urine Methadone Screen Not Detected (Not Detect) ng/mL Urine Fentanyl Screen Not Detected (Not Detect) Ur Barbiturates Screen Not Detected (Not Detect) Ur Phencyclidine Scrn Not Detected (Not Detect) Ur Amphetamines Screen Not Detected (Not Detect) U Benzodiazepines Scrn Not Detected (Not Detect) Urine Cocaine Screen Not Detected (Not Detect) U Marijuana (THC) Screen POSITIVE H (Not Detect) Ethyl Alcohol < 10 mg/dL External Record Review External record reviewed: Office record, Outpatient record and Prior outpatient labs Chronic Conditions Patient?s care impacted by: Other (psych ( schizoaffective d/o, antisocial personality d/o) ) Critical Care Time Critical Care Time Critical Care Time: No Discharge Plan Discharge Clinical Impression: Schizoaffective disorder, bipolar type, Antisocial personality disorder Patient Disposition: Home, Self-Care Instructions: Schizoaffective Disorder (ED) Additional Instructions: Take your medications as prescribed. If you were prescribed antibiotics today, it is important that you take your medication to their entirety, do not skip any doses, do not finish them early. Follow-up with your primary care provider this week. Return to the emergency department with new or worsening symptoms. Such as fevers, chills, chest pain, shortness of breath, nausea, vomiting, dizziness, headache, vision changes, lethargy, hallucinations, suicidal or homicidal ideation In case of emergency call 911 Prescriptions: No Action albuterol sulfate [ProAir HFA] 90 mcg/actuation HFA aerosol inhaler 2 puff inhalation Q4-6H PRN (Reason: shortness of breath or wheezing) Qty: 8.5 0RF olanzapine 7.5 mg tablet 7.5 mg PO BEDTIME 30 Days Qty: 30 0RF Rx Instructions: Send to: [address] [address] ibuprofen 400 mg tablet 400 mg PO Q8H PRN (Reason: pain) Qty: 14 0RF Referrals: [facility] [Provider Group] - 2 days Interventions: [place]-Suicide Risk Severity Scale Last Done: 02/29/24 05:30 Print Language: Thai
[2024-02-29 10:45] VITALS: BP 149/81; PULSE 65; RESP 18; TEMP 36.4; O2SAT 96
[2024-02-29 11:37] VITALS: BP 149/81; PULSE 65; RESP 18; TEMP 36.4; O2SAT 96
== END 2024-02-29 11:51 | disposition home or self-care (01) ==
PROVIDERS: Emergency Provider Emergency Medicine
DX: F25.0 Schizoaffective disorder, bipolar type (principal); F60.2 Antisocial personality disorder; Z91.148 Patient's other noncompliance with medication regimen for other reason
CPT/HCPCS: 36415; 80053; 80307; 81003; 85025; 99284; 99285; S9485

== ENCOUNTER 2024-02-29 19:04 | Emergency (ER) | payer MEDICAID, SELFPAY ==
[2024-02-29 19:13] VITALS: BP 136/70; PULSE 83; O2SAT 99
[2024-02-29 19:25] VITALS: BP 143/69; PULSE 68; RESP 18; TEMP 36.8; O2SAT 98; BMI 27.0
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
[2024-02-29 19:51] LABS: MANUAL DIFF FLAG NO
[2024-02-29 19:53] LABS: Appearance Urine Clear; Basophils Percent Auto 0.4 % (0-2); Color Urine Dark Yellow; Eosinophils Percent Auto 0.4 % (0-4); Glucose Urine UA Negative (Negative); Hemoglobin 15.1 g/dl (14.0-18.0); Imm Gran Abs Auto 0.03 X10*3/uL (0.00-0.03); Imm Gran Pct Auto 0.3 % (0.0-0.4); Leukocyte Esterase Urine Negative (Negative); Lymphocytes Absolute Auto 1.4 X10*3/uL (1.2-4.9); Lymphocytes Percent Auto 14.5 % (20-40); Mean Corpuscular HGB Conc 35.1 g/dl (31.0-36.0); Mean Corpuscular Hemoglobin 32.9 pg (27.0-33.0); Mean Corpuscular Volume 93.7 fL (80.0-98.0); Mean Platelet Volume 9.9 fL (9.4-12.4); Monocytes Absolute Auto 0.7 X10*3/uL (0.1-1.2); Monocytes Percent Auto 6.7 % (2-11); Neutrophils Absolute Auto 7.5 x10*3/uL (2.0-8.3); Neutrophils Percent Auto 77.7 % (45-73); Nitrite Urine Negative (Negative); PH 5.5 (5.0-9.0); Platelet Count 256 X10*3/uL (160-400); Red Blood Count 4.59 X10*6/uL (4.60-5.80); Red Cell Distribution Width 12.9 % (11.0-16.0); Specific Gravity - Urine >= 1.030 (1.005-1.025); UMIC TRIGGER UACC YES; Urine Blood Negative (Negative); Urine Ketones Trace mg/dL (Negative); Urine Protein 30 (1+) mg/dL (Neg-Trace); White Blood Count 9.6 X10*3/uL (4.8-10.8)
[2024-02-29 20:02] LABS: Bacteria Urine None Seen (None Seen); Squamous Epithelial Cell Urine 0-2 /HPF (0-2); WBC Urine 0-5 /HPF (0-5)
[2024-02-29 20:04] LABS: Amphetamine Screen Urine Not Detected (Not Detect); Barbiturates, Urine Not Detected (Not Detect); Benzodiazepines Screen Urine Not Detected (Not Detect); Buprenorphine Scr Not Detected (Not Detect); Cannabinoid Screen Urine POSITIVE (Not Detect); Cocaine Screen Urine Not Detected (Not Detect); Fentanyl, urine Not Detected (Not Detect); Methadone Screen, Urine Not Detected (Not Detect); Opiate Screen Urine Not Detected (Not Detect); Oxycodone Screen Urine Not Detected (Not Detect); Phencyclidine Screen Urine Not Detected (Not Detect)
[2024-02-29 20:08] LABS: Alanine Aminotransferase 19 U/L (0-40); Albumin Level 4.7 g/dL (3.5-5.0); Alkaline Phosphatase 53 U/L (39-117); Anion Gap 14 (12-20); Aspartate Amino Transferase 23 U/L (5-37); Bilirubin Total 1.5 mg/dL (0.0-1.0); Blood Urea Nitrogen 14 mg/dL (9-16); Carbon Dioxide 26 mmol/L (22-29); Chloride 105 mmol/L (96-108); Creatinine Clr Calc Pharmacy 95.8; Estimated Glomerular Filt Rate > 60; Ethanol 11 mg/dL; Glucose Random 87 mg/dL (60-115); Potassium 3.6 mmol/L (3.3-5.1); Sodium 141 mmol/L (135-145); Total Protein 7.8 g/dL (6.5-8.0)
[2024-02-29] MEDS: OLANZapine 2.5 MG TABLET 7.5 MG PO (21:51)
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
--- NOTE | 2024-02-29 22:21 | PC.NURSE ---
pt changed into blue hospital attire- this nurse notified MD of pt concerns- pt to have CARE team consult
[2024-03-01 07:01] VITALS: BP 128/72; PULSE 66; RESP 18; TEMP 36.8; O2SAT 99
--- NOTE | 2024-03-01 10:42 | MHC.CARE ---
PT seen by CARE team for mental status update as he was seen by CARE team yesterday, discharged and he re-presented the same evening. PT is advocating for [facility] bed search due to current homelessness after moving back to the area 1 month ago, ED provider Susanne BABCOCK was consulted and is in agreement with disposition plan.
--- NOTE | 2024-03-01 13:37 | MHC.CARE ---
Addendum entered by Shikha Ho MA 03/01/24 16:20: Pt called [facility] and informed them he needs help with housing and social security and was told they could not help with these things. Pt then requested to speak with clinician and was no loner agreeable to [facility] and requested discharge. He was offered a Lyft to [facility] and also declined. ED provider Susanne Ferreira was in agreement with discharge and patient has list of resources and shelters in the area. Original Note: Pts info was faxed to [facility] for possible ACCS bed, clinician to call and ensure referral was received.
--- NOTE | 2024-03-02 08:59 | MHC.CARE ---
Referral to [facility] complete
== END 2024-03-01 14:03 | disposition home or self-care (01) ==
PROVIDERS: Registered Nurse Emergency; Emergency Provider Internal Medicine
DX: F25.0 Schizoaffective disorder, bipolar type (principal); Z59.00 Homelessness unspecified; Z91.148 Patient's other noncompliance with medication regimen for other reason
CPT/HCPCS: 36415; 80053; 80307; 81001; 85025; 99285; S9485

== ENCOUNTER 2024-03-14 19:08 | Emergency (ER) | payer MEDICAID, SELFPAY ==
[2024-03-14 19:17] VITALS: BP 148/73; PULSE 89; RESP 18; TEMP 36.6; O2SAT 98; BMI 26.1
--- NOTE | 2024-03-14 19:17 | ED_ITS ---
HPI - General Adult General Chief complaint: General Medical Stated complaint: crisis Time Seen by Provider: 03/14/24 22:06 Source: patient Mode of arrival: ambulatory Limitations: no limitations History of Present Illness ED Provider: Dr. Omega Mueller HPI narrative: 28-year-old male with a history of schizoaffective ( bipolar type) presents to the emergency department for evaluation of feeling weak, cold and hungry. Patient states he has been homeless for a long time and has been sleeping in an alley in [place]. He states he stated shelters before it but he has been [place] he does not want to return to a prison. Patient has no other complaints. Reviewing his record this is his 4th visit since 02/10/2024 with similar complaints. His review of systems was negative. Related Data Previous Rx's ?Medication ?Instructions ?Recorded olanzapine 7.5 mg tablet 7.5 mg PO BEDTIME 30 days #30 tabs 11/20/21 albuterol sulfate 90 mcg/actuation 2 puff inhalation Q4-6H PRN 04/25/22 aerosol inhaler (ProAir HFA) shortness of breath or wheezing #8.5 grams ibuprofen 400 mg tablet 400 mg PO Q8H PRN pain #14 tabs 01/01/23 Allergies Allergy/AdvReac Type Severity Reaction Status Date / Time chlorpromazine AdvReac Unknown Hives Verified 03/14/24 19:20 [From THORAZINE] haloperidol [From HALDOL] AdvReac Unknown Hives Verified 03/14/24 19:20 Review of Systems Review of Systems: Yes all other systems are reviewed and are negative PMFSH Past Medical History Medical History Antisocial personality disorder Schizophrenia Social History Social History Household Members: None Housing: Apartment Do you presently have visiting nurse or other home services: Yes Alcohol intake: former Patient Tobacco Use Status: Never used Tobacco e-Cigarette/Vaping Use: Never Used Second Hand Smoke Exposure: No Substance Use Type: Marijuana Advance Directives: No Advance Directives Information Provided: No Do you have a plan to hurt others: No Plan service: No Sexual orientation: Straight/Heterosexual Physical Exam ED Vital Signs: Vital Signs - 24 hr 03/14/24 19:17 Temperature 98 F Pulse Rate 89 Respiratory Rate 18 Blood Pressure 148/73 H Pulse Oximetry 98 Oxygen Delivery Method Room Air BMI result Body Mass Index 26.1 Vital signs were normal Exam: General: Awake, alert in no distress Head: Normocephalic, atraumatic EENT: PERRL, Lids normal, sclera normal, conjunctiva normal, nose normal , ears normal, throat without erythema or exudates Neck: Supple, no adenopathy Lung: breath sounds symmetric, no wheezing, rales or rhonchi Chest: symmetric movement, nontender Heart: regular rate and rhythm, normal S1, S2 no murmurs or rubs Abdomen: soft, non-tender, nondistended, normal bowel sounds Back: no vertebral tenderness, no CVAT Extremities: no deformities, moves all extremities symmetrically Neuro: Awake, alert, oriented, normal speech, cranial nerves intact, moves all extremities symmetrically Psych: Pleasant, cooperative Course Course Course Narrative: RME performed by Dominique Esquivel PA-C. Patient is a 28 year old assigned male at presenting to the emergency department requesting resources for homelessness. Patient states that he has been trying to get ahold of a psychiatric social worker to get resources for homelessness but has not been able to yet. Detailed physical exam and review of systems are deferred to the fiscal analyst. Patient placed back in the waiting room pending room availability. Medical Decision Making Medical Decision Making MDM Narrative: 28-year-old male with a history of schizoaffective ( bipolar type) homeless who presents to the emergency department for evaluation of feeling weak, cold and hungry. This is the patient's 4th visit since 02/10/2024. Patient's vital signs were normal. Physical examination was unremarkable. Differential diagnosis: ?Includes but is not limited to homelessness, malnutrition, decompensation of chronic psychiatric illness Course: Start physician observation 03/14/2024 at 23:32 hours Patient's vital signs were unremarkable in his physical examination was normal. At this time I do not think that the patient needs any further workup and his presentation is more consistent with his homelessness as opposed to decompensation of his psychiatric illness. The patient will be given our resource book with prison information and other services that may be available for him. The patient will be kept in the emergency department overnight and re- evaluated in the morning for discharge versus care team evaluation. End physician observation on 03/15/2024 at 07:02 hours: The patient did well overnight and had no complaints. The patient was able to eat food and drink without difficulty. Patient will be given the homeless resource information. Observation care revealed the the patient does not meet medical necessity for hospitalization. Exam at time of disposition revealed the patient was awake, alert , oriented to person place, was not in any distress. ? Final disposition discussed with the patient and the patient verbalized understanding and agreement. Patient started observation time on03/14/2024 at 23:32 hours Patient completed observation care on 03/15/2024 at 07:02 hours Total time spent in observation care was 19 hours and 30 minutes. Discharge Plan Discharge Clinical Impression: Homeless, Schizoaffective disorder Patient Disposition: Home, Self-Care Additional Instructions: Use the resource book to help with homeless shelters and other community resources that can help with food and clothing. Follow-up with your doctor in 2 days. Please return to the emergency department if your symptoms get worse or if you develop any symptoms that are concerning to you. Prescriptions: No Action albuterol sulfate [ProAir HFA] 90 mcg/actuation HFA aerosol inhaler 2 puff inhalation Q4-6H PRN (Reason: shortness of breath or wheezing) Qty: 8.5 0RF olanzapine 7.5 mg tablet 7.5 mg PO BEDTIME 30 Days Qty: 30 0RF Rx Instructions: Send to: [address] [address] ibuprofen 400 mg tablet 400 mg PO Q8H PRN (Reason: pain) Qty: 14 0RF Print Language: Frisian
[2024-03-15 07:36] VITALS: BP 138/68; PULSE 78; RESP 18; TEMP 36.7; O2SAT 98
--- NOTE | 2024-03-15 07:41 | PC.NURSE ---
Patient received discharge paperrwork, stating does not want to leave, rolled over and pulled blankets over head and went back to sleep. Security called to assist with discharge
== END 2024-03-15 07:33 | disposition home or self-care (01) ==
PROVIDERS: Emergency Provider Emergency Medicine Emergency Medical Services
DX: F25.0 Schizoaffective disorder, bipolar type (principal); Z59.02 Unsheltered homelessness; F60.2 Antisocial personality disorder; Z79.899 Other long term (current) drug therapy
CPT/HCPCS: 99283; 99285

== ENCOUNTER 2024-03-15 19:44 | Emergency (ER) | payer MEDICAID, SELFPAY ==
[2024-03-15 19:53] VITALS: BP 144/87; PULSE 74; RESP 19; TEMP 36.6; O2SAT 98; BMI 24.6
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
--- NOTE | 2024-03-15 22:40 | PC.NURSE ---
pt in nad, on phone in mwr, politely asked for food and drink and provided, nad, at least it's online content developer here
[2024-03-16 09:37] LABS: MANUAL DIFF FLAG NO
[2024-03-16 09:38] LABS: Basophils Percent Auto 0.7 % (0-2); Eosinophils Absolute Auto 0.1 X10*3/uL (0.0-0.4); Eosinophils Percent Auto 3.2 % (0-4); Hematocrit 41.3 % (42.0-52.0); Hemoglobin 14.4 g/dl (14.0-18.0); Imm Gran Abs Auto 0.01 X10*3/uL (0.00-0.03); Imm Gran Pct Auto 0.2 % (0.0-0.4); Lymphocytes Absolute Auto 1.5 X10*3/uL (1.2-4.9); Lymphocytes Percent Auto 33.9 % (20-40); Mean Corpuscular HGB Conc 34.9 g/dl (31.0-36.0); Mean Corpuscular Volume 94.5 fL (80.0-98.0); Mean Platelet Volume 9.6 fL (9.4-12.4); Monocytes Absolute Auto 0.4 X10*3/uL (0.1-1.2); Monocytes Percent Auto 8.9 % (2-11); Neutrophils Absolute Auto 2.3 x10*3/uL (2.0-8.3); Neutrophils Percent Auto 53.1 % (45-73); Platelet Count 209 X10*3/uL (160-400); Red Blood Count 4.37 X10*6/uL (4.60-5.80); Red Cell Distribution Width 12.4 % (11.0-16.0); White Blood Count 4.4 X10*3/uL (4.8-10.8)
[2024-03-16 10:14] LABS: Alanine Aminotransferase 29 U/L (0-40); Alkaline Phosphatase 44 U/L (39-117); Anion Gap 12 (12-20); Aspartate Amino Transferase 21 U/L (5-37); Bilirubin Direct 0.4 mg/dL (0.0-0.5); Bilirubin Total 1.3 mg/dL (0.0-1.0); Blood Urea Nitrogen 14 mg/dL (9-16); Calcium 9.5 mg/dL (8.4-10.2); Carbon Dioxide 25 mmol/L (22-29); Chloride 106 mmol/L (96-108); Creatinine Clr Calc Pharmacy 125.9; Estimated Glomerular Filt Rate > 60; Ethanol < 10 mg/dL; Glucose Random 82 mg/dL (60-115); Sodium 139 mmol/L (135-145); Total Protein 6.7 g/dL (6.5-8.0)
[2024-03-16 11:15] VITALS: BP 135/80; PULSE 70; RESP 18; TEMP 36.7; O2SAT 98
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
[2024-03-16 11:38] LABS: Amphetamine Screen Urine Not Detected (Not Detect); Barbiturates, Urine Not Detected (Not Detect); Benzodiazepines Screen Urine Not Detected (Not Detect); Buprenorphine Scr Not Detected (Not Detect); Cannabinoid Screen Urine POSITIVE (Not Detect); Cocaine Screen Urine Not Detected (Not Detect); Fentanyl, urine Not Detected (Not Detect); Methadone Screen, Urine Not Detected (Not Detect); Opiate Screen Urine Not Detected (Not Detect); Oxycodone Screen Urine Not Detected (Not Detect); Phencyclidine Screen Urine Not Detected (Not Detect)
[2024-03-16 12:45] VITALS: BP 135/80; PULSE 70; RESP 18; TEMP 36.7; O2SAT 98
== END 2024-03-16 12:46 | disposition home or self-care (01) ==
PROVIDERS: Emergency Provider Emergency Medicine
DX: F32.A Depression, unspecified (principal); F41.9 Anxiety disorder, unspecified; F60.2 Antisocial personality disorder; F25.0 Schizoaffective disorder, bipolar type; Z79.899 Other long term (current) drug therapy
CPT/HCPCS: 36415; 80048; 80076; 80307; 85025; 99284

== ENCOUNTER 2024-03-16 22:14 | Emergency (ER) | payer MEDICAID, SELFPAY ==
[2024-03-16 22:27] VITALS: BP 120/76; PULSE 72; RESP 18; TEMP 36.4; O2SAT 97; BMI 24.7
--- NOTE | 2024-03-17 06:32 | ED_ITS ---
HPI - General Adult General Chief complaint: General Medical Stated complaint: SI Time Seen by Provider: 03/17/24 06:30 Source: patient Mode of arrival: ambulatory Limitations: no limitations History of Present Illness ED Provider: maxwell ESPINOSA narrative: Patient is a 28-year-old male with history of schizoaffective disorder, bipolar type, antisocial personality disorder, currently experiencing homelessness who presented to the emergency department last night stating that he feels unsafe sleeping on the streets. He presented to the ED yesterday for same. Denies suicidal ideation, homicidal ideation, auditory or visual hallucinations. He denies any physical complaints. MD complaint: homelessness Associated symptoms: denies other symptoms Related Data Previous Rx's ?Medication ?Instructions ?Recorded olanzapine 7.5 mg tablet 7.5 mg PO BEDTIME 30 days #30 tabs 11/20/21 albuterol sulfate 90 mcg/actuation 2 puff inhalation Q4-6H PRN 04/25/22 aerosol inhaler (ProAir HFA) shortness of breath or wheezing #8.5 grams ibuprofen 400 mg tablet 400 mg PO Q8H PRN pain #14 tabs 01/01/23 Allergies Allergy/AdvReac Type Severity Reaction Status Date / Time chlorpromazine AdvReac Unknown Hives Verified 03/16/24 22:27 [From THORAZINE] haloperidol [From HALDOL] AdvReac Unknown Hives Verified 03/16/24 22:27 Review of Systems Review of Systems: As per HPI. Yes all other systems are reviewed and are negative Constitutional: Constitutional: Reports as per HPI [facility] Past Medical History Medical History Antisocial personality disorder Schizophrenia Social History Social History Household Members: None Housing: Apartment Do you presently have visiting nurse or other home services: Yes Alcohol intake: former Patient Tobacco Use Status: Never used Tobacco e-Cigarette/Vaping Use: Never Used Second Hand Smoke Exposure: No Substance Use Type: Marijuana Advance Directives: No Advance Directives Information Provided: No service: No Sexual orientation: Straight/Heterosexual Physical Exam ED Vital Signs: Vital Signs - 24 hr 03/16/24 22:27 Temperature 97.6 F Pulse Rate 72 Respiratory Rate 18 Blood Pressure 120/76 Pulse Oximetry 97 Oxygen Delivery Method Room Air BMI result Body Mass Index 24.7 Vital signs have been reviewed and appear to be correct. Blood pressure normal. Heart rate normal. Respiratory rate normal. Temperature normal. Oxygen saturation normal. Const General: cooperative, healthy appearing and no acute distress Orientation/consciousness: oriented to person, oriented to place, oriented to time and patient oriented x3 Limitations: no limitations HENMT Head: Yes normocephalic and Yes atraumatic Ears: external ears normal General nose exam: Normal external nose present Face and sinus: Yes face symmetric Mouth: oropharynx normal and moist mucous membranes Throat: Yes uvula midline Eyes Pupils: Equal, round and reactive pupils present Neck Neck: Yes normal visual inspection and Yes supple Resp Effort & Inspection: normal respiratory effort and able to speak in complete sentences Auscultation: clear to auscultation bilaterally Cardio Rate: regular rate Rhythm: regular rhythm Heart sounds: S1 normal heart sound present and S2 normal heart sound present GI Palpation (GI): Soft to palpation and nontender Auscultation: normoactive bowel sounds General: Yes no CVA tenderness Back/Spine/Pelvis Back: no CVA tenderness Skin General skin exam: elasticity normal and turgor normal Neuro General: oriented to person, oriented to place, oriented to time, patient oriented x3, moves all extremities, no focal motor deficits and CN's II-XI intact bilaterally Cranial nerves: Yes Equal, round and reactive pupils present Cognition (Neuro): normal cognition Extrem General: Yes full ROM, Yes no pedal edema and Yes no calf tenderness Psych Appearance: grossly normal Mental Status: mental status grossly normal Affect: Hostile affect present Thought process: Normal thought process present Thought content: suicidality, no homicidality and no hallucinations Medical Decision Making Medical Decision Making MDM Narrative: Patient is a 28-year-old male with history of schizoaffective disorder, bipolar type, antisocial personality disorder, currently experiencing homelessness who presented to the emergency department last night stating that he feels unsafe sleeping on the streets. Patient was brought into the ED and slept overnight. Denies any complaints this morning. Feel patient is stable for discharge and provided resource book with resources in the community. Differential Diagnosis Differential Diagnoses: The differential diagnosis associated with the presentation includes homelessness, depression, anxiety, schizoaffective disorder External Record Review External record reviewed: Inpatient record, Office record and Outpatient record Discharge Plan Discharge Clinical Impression: Homelessness Patient Disposition: Home, Self-Care Additional Instructions: Use the resource book to find a homeless halfway in the area as well as other resources for food, etc. Return with new or concerning symptoms. Prescriptions: No Action albuterol sulfate [ProAir HFA] 90 mcg/actuation HFA aerosol inhaler 2 puff inhalation Q4-6H PRN (Reason: shortness of breath or wheezing) Qty: 8.5 0RF olanzapine 7.5 mg tablet 7.5 mg PO BEDTIME 30 Days Qty: 30 0RF Rx Instructions: Send to: [address] [address] ibuprofen 400 mg tablet 400 mg PO Q8H PRN (Reason: pain) Qty: 14 0RF Print Language: Luxembourgish
[2024-03-17 07:49] VITALS: BP 120/76; PULSE 72; RESP 18; TEMP 36.4; O2SAT 97
== END 2024-03-17 07:53 | disposition home or self-care (01) ==
PROVIDERS: Emergency Provider Emergency Medicine
DX: F31.9 Bipolar disorder, unspecified (principal); R45.851 Suicidal ideations; Z59.00 Homelessness unspecified
CPT/HCPCS: 99282

== ENCOUNTER 2024-03-17 22:45 | Emergency (ER) | payer MEDICAID, SELFPAY ==
[2024-03-17 22:53] VITALS: BP 134/79; PULSE 78; RESP 18; TEMP 36.6; O2SAT 96; BMI 25.8
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
--- NOTE | 2024-03-18 02:31 | PC.NURSE ---
pt changed over by security belonging in C1. Pt upset because backpack got taken away.
[2024-03-18 02:32] VITALS: BP 132/86; PULSE 68; RESP 16; TEMP 36.9; O2SAT 98
--- NOTE | 2024-03-18 07:24 | ED.PSYCH ---
HPI - Psych General Chief Complaint: Psychiatric Symptoms Stated Complaint: Anxiety/Depression Time Seen by Provider: 03/18/24 06:30 Source: patient Mode of arrival: ambulatory Limitations: no limitations History of Present Illness ED Provider: Enoc Catherine PA-C HPI Narrative: 28 yo male with history of schizoaffective disorder, anxiety/depression, antisocial personality disorder, currently homeless who presents back to the ER for evaluation of increased stress, anxiety and depression. He states he has been smoking a lot of marijuana to help himself cope. He reports recently living in [place] and when he came back to [place] all of his old providers are no longer taking him. He states he used to be on Zyprexa, last time he took it was in May. He denies any other drug or alcohol use. He states he has a job. He wants referrals to doctors around here who can prescribe him meds. He is not suicidal or homicidal. Denies hallucinations. complaint: feels depressed and anxiety Onset (ago): month(s) Duration: constant History of same: Yes Relieving factors: medication Exacerbating factors: drug use Context: not taking psychiatric medications Associated psychiatric symptoms: depression Associated symptoms: denies other symptoms Treatments prior to arrival: none Related Data Previous Rx's ?Medication ?Instructions ?Recorded olanzapine 7.5 mg tablet 7.5 mg PO BEDTIME 30 days #30 tabs 11/20/21 albuterol sulfate 90 mcg/actuation 2 puff inhalation Q4-6H PRN 04/25/22 aerosol inhaler (ProAir HFA) shortness of breath or wheezing #8.5 grams ibuprofen 400 mg tablet 400 mg PO Q8H PRN pain #14 tabs 01/01/23 Allergies Allergy/AdvReac Type Severity Reaction Status Date / Time chlorpromazine AdvReac Unknown Hives Verified 03/17/24 22:55 [From THORAZINE] haloperidol [From HALDOL] AdvReac Unknown Hives Verified 03/17/24 22:55 Review of Systems Review of Systems: Yes all other systems are reviewed and are negative PMFSH Past Medical History Medical History Antisocial personality disorder Schizophrenia Social History Social History Household Members: None Housing: Apartment Do you presently have visiting nurse or other home services: Yes Alcohol intake: former Patient Tobacco Use Status: Never used Tobacco e-Cigarette/Vaping Use: Never Used Second Hand Smoke Exposure: No Substance Use Type: Marijuana Advance Directives: No Do you have a plan to hurt others: No Plan service: No Sexual orientation: Straight/Heterosexual Physical Exam Vital Signs: Vital Signs: Last Vital Signs Temp 98.4 F 03/18/24 02:32 Pulse 68 03/18/24 02:32 Resp 16 03/18/24 02:32 BP 132/86 03/18/24 02:32 Pulse Ox 98 03/18/24 02:32 O2 Del Method Room Air 03/18/24 02:32 BMI result Body Mass Index 25.8 Appearance: Alert. Oriented X3. No acute distress. Head: normocephalic, atraumatic. Eyes: Pupils equal, round and reactive to light. ENT: Pharynx normal. No tonsillar swelling or exudate. Neck: Normal inspection. Neck supple. CVS: Normal heart rate and rhythm. Pulses normal. Respiratory: No respiratory distress. Breath sounds normal. Abdomen: Soft and nontender. +BS x4 Skin: Skin warm and dry. Normal skin color. Normal skin turgor. No rashes. Extremities: No lower extremity edema. No joint swelling. Neuro/psych: Oriented X 3. No motor deficit. No sensory deficit. CN II-XII intact. Normal speech and cognition. Mood is okay makes eye contact and speaks coherently. normal train of thought Medical Decision Making Medical Decision Making MDM Narrative: 28 yo male with history of schizoaffective disorder, depression, anxiety and homelessness presenting for depression, anxiety and stress. No SI or HI. This is his 6th visit to the ER in the last 1.5 months. He was just seen here yesterday. He was recently given multiple resources in the community and seen by CARE team. At this time he does not require inpatient level of care. No threat to himself or others. He was again given multiple community resources and told that he needs to initiate these phone calls to get some help. He states he will do do. He is stable for discharge with outpatient community resources. Differential Diagnosis Differential Diagnoses: The differential diagnosis associated with the presentation includes substance induced mood disorder, acute psychosis, schizophrenia, schizoaffective disorder, PTSD, bipolar disorder, major depression with psychotic features Admission/Observation Consideration of admission/observation: Escalation of care including admission/observation considered External Record Review External record reviewed: Outpatient record Tests considered The following testing was considered but not selected: utox and etoh considered, does not appear to be under the influence Prescription Management I considered prescription management with: Other (antipsychotic) Chronic Conditions Patient?s care impacted by: Other (schizoaffective disorder) Social Determinants Patient?s care significantly limited by Social Determinants of Health including: Inadequate housing, Low income, Problems related to primary support group and Other Social Determinant of Health Critical Care Time Critical Care Time Critical Care Time: No Discharge Plan Discharge Clinical Impression: Depression, Schizoaffective disorder, Anxiety Patient Disposition: Home, Self-Care Instructions: Depression (ED), Schizoaffective Disorder (ED), Anxiety (ED) Additional Instructions: Follow up with the resources provided. If you develop new or worsening symptoms call 911 or come back to the ER for further evaluation. Prescriptions: No Action albuterol sulfate [ProAir HFA] 90 mcg/actuation HFA aerosol inhaler 2 puff inhalation Q4-6H PRN (Reason: shortness of breath or wheezing) Qty: 8.5 0RF olanzapine 7.5 mg tablet 7.5 mg PO BEDTIME 30 Days Qty: 30 0RF Rx Instructions: Send to: [address] [id number] ibuprofen 400 mg tablet 400 mg PO Q8H PRN (Reason: pain) Qty: 14 0RF Referrals: [facility] [Provider Group] Print Language: Rwandan
[2024-03-18 08:07] VITALS: BP 00/00; PULSE 0; RESP 0; TEMP -17.7; TEMP 0; O2SAT 0
== END 2024-03-18 08:08 | disposition home or self-care (01) ==
PROVIDERS: Emergency Provider Emergency Medicine
DX: F32.A Depression, unspecified (principal); F25.9 Schizoaffective disorder, unspecified; F41.9 Anxiety disorder, unspecified; F12.90 Cannabis use, unspecified, uncomplicated; Z59.00 Homelessness unspecified; Z79.899 Other long term (current) drug therapy
CPT/HCPCS: 99283

== ENCOUNTER 2025-02-04 22:18 | Emergency (ER) | payer MEDICAID, SELFPAY ==
[2025-02-04 22:22] VITALS: BP 152/86; PULSE 71; RESP 20; TEMP 36; O2SAT 97; BMI 21.9
--- NOTE | 2025-02-04 22:42 | PC.NURSE ---
patient came to triage door and stated he needs to leave and will come back another time to be seen.
--- OUTSIDE RECORDS SUMMARY | 2025-02-04 22:48 | XMS_ITS | Encounter Summary ---
Author Organization [facility] Address [address] [place] [address] [address] [place] [id number] Care Team Providers Care Motion Picture Photographer Name Role Phone Pooja Erickson MD Primary Care Provider Encounter Details Date Type Department Care Team (Latest Contact Info) Description 04/27/2019 Abstract C CONVERSIONS Dental, Provider, DDS Social History Tobacco Use Types Packs/Day Years Used Date Smoking Tobacco: Never Assessed Sex and Gender Information Value Date Recorded Sex Assigned at Male 04/09/2022 10:14 AM EDT Legal Sex Male 10:14 AM EDT Gender Identity Male 06/25/2023 1:34 PM EST Sexual Orientation Straight 04/09/2022 10 :14 AM EDT documented as of this encounter Plan of Treatment Not on file documented as of this encounter Visit Diagnoses Not on filedocumented in this encounter Care Teams Motion Picture Photographer Relationship Specialty Start Date End Date Pooja Erickson MD [address] [place] [id number] PCP - General Family Medicine 11/22/21 documented as of this encounter
--- OUTSIDE RECORDS SUMMARY | 2025-02-04 22:48 | XMS_ITS | Encounter Summary ---
Author Organization [facility] Address [address] [place] [address] Care Team Providers Care Process Maintenance Technician Name Role Phone Patient, Has No Pcp Or Ref Primary Care Provider Unavailable Reason for Visit * Reason Onset Date Comments Actionable Finding 03/25/2024 Encounter Details Date Type Department Care Team (Late st Contact Info) Description 03/25/2024 Telephone [facility] - Actionable Findings [address] [facility] [address] [place] [address] Antonia Solo LPN Actionable Finding Social History Tobacco Use Types Packs/Day Years Used Date Smoking Tobacco: Never Smokeless Tobacco: Never Comments:: Sex and Gender Information Value Date Recorded Sex Assigned at Male 03/02/2024 11:49 PM EDT Legal Sex Male 10:14 AM EDT Gender Identity Male 03/02/2024 11:49 PM EDT Sexual Orientation Not on file documented as of this encounter Plan of Treatment Not on file documented as of this encounter Visit Diagnoses Not on filedocumented in this encounter Care Teams Process Maintenance Technician Relationship Specialty Start Date End Date Patient, Has No Pcp Or Ref DO NOT EDIT THIS RECORD VIA PROVIDER ON THE FLY PCP - General Mud Logger 03/12/24 documented as of this encounter
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
--- OUTSIDE RECORDS SUMMARY | 2025-02-04 22:48 | XMS_ITS | Encounter Summary ---
Author Organization [facility] Address [address] [place] [address] Care Team Providers Care Computer Video Game Designer Name Role Phone Patient, Has No Pcp Or Ref Primary Care Provider Unavailable Reason for Visit * Reason Onset Date Comments Actionable Finding 03/25/2024 Encounter Details Date Type Department Care Team (Late st Contact Info) Description 03/25/2024 Telephone [facility] - Actionable Findings [address] [facility] [address] [place] [address] Antonia Solo LPN Actionable Finding Social History [...] on filedocumented in this encounter Care Teams Computer Video Game Designer Relationship Specialty Start Date End Date Patient, Has No Pcp Or Ref DO NOT EDIT THIS RECORD VIA PROVIDER ON THE FLY PCP - General Caramel Coloring Operator 03/12/24 documented as of this encounter
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
== END 2025-02-04 22:48 | disposition left against medical advice (07) ==
PROVIDERS: Emergency Provider Emergency Medicine
DX: M54.2 Cervicalgia (principal)
CPT/HCPCS: 99281

== ENCOUNTER 2025-02-06 20:08 | Emergency (ER) | payer SELFPAY ==
--- NOTE | ~2025-02-06 | XR_ITS ---
CLINICAL HISTORY: pain 3 views thoracic spine Comparison: CR - XR CERVICAL SPINE 3V - 02/06/25 20:39 EDT Findings: Normal vertebral body alignment. No acute fractures or dislocation. Mild degenerative change at C6-7. IMPRESSION: No acute findings. This document has been electronically signed by: Steve Smith MD on 02/06/2025 21:27:13
--- NOTE | ~2025-02-06 | XR_ITS ---
CLINICAL HISTORY: pain --- Additional Notes or Special Instructions: Did fuchs view to visualize the odontoid. 4 views cervical spine Comparison: CT/REG/SR - CT CERVICAL SPINE WO IV CON - 06/24/23 10:02 EST Findings: Normal alignment. No acute fractures or dislocation. Mild degenerative change at C6-7. No prevertebral soft tissue swelling. IMPRESSION: No acute findings. This document has been electronically signed by: Steve Smith MD on 02/06/2025 21:27:58
[2025-02-06 20:10] VITALS: BP 119/81; PULSE 61; RESP 16; TEMP 36; O2SAT 95; BMI 28.0
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
--- OUTSIDE RECORDS SUMMARY | 2025-02-06 21:04 | XMS_ITS | Encounter Summary ---
Author Organization [facility] Address [address] [place] [address] Care Team Providers Care Foot Drill Operator Name Role Phone Ref, Has No Pcp Or Primary Care Provider Unavail able Reason for Visit * Reason Onset Date Comments Actionable Finding 03/25/2024 Encounter Details Date Type Department Care Team (Late st Contact Info) Description 03/25/2024 Telephone [facility] - Actionable Findings [address] [facility] [address] [place] [address] Antonia Solo LPN Actionable Finding Social History [...] on filedocumented in this encounter Care Teams Foot Drill Operator Relationship Specialty Start Date End Date Ref, Has No Pcp Or DO NOT EDIT THIS RECORD VIA PROVIDER ON THE FLY PCP - General Press Reader 03/12/24 documented as of this encounter
--- OUTSIDE RECORDS SUMMARY | 2025-02-06 21:04 | XMS_ITS | Clinical Summary ---
Author Organization [employer] Address [address] [place] [address] [address] [place] [address] Care Team Providers Care Boil Off Machine Operator Cloth Name Role Phone Pooja Erickson MD Primary Care Provider [phone] Allergies Active Allergy Reactions Criticality Noted Date [...] MMR 02/08/1999,02/22/1995 Meningococcal MCV4P ACYW-135 10/17/2006 Novel [id number], preservative-free 07/21/2008 PPD Test 10/23/2011 Tdap 04/23/2023,01/11/2022,10/17/2006 [...] with others, in a hotel, in [place], living outside on the street, on a [...] the past 12 months, has t he [employer] gas, oil or water company threatened to [...] HEPATITIS C ANTIBODY NON-REACT JOSIE NON-REACT JOSIE [facility] INDEX 0.08 <1.00 [facility] Comment: HCV antibody was non-reactive. There is no laboratory evidence of HCV infection. In most cases, no further action is required. However, if recent HCV exposure is suspected, a test for HCV RNA (test code 94845) is suggested. For additional information please refer to http://[employer]/faq/KPW08j5 (This link is being provided for informational/ educational purposes only.) 01/11/2022 10:3 3 AM EDT Pooja Erickson MD HISTORICAL/NON ORDERABLE LABS Fi nal Result [facility] [address] * HIV 1/2 ANTIGEN/ANTIBODY,FOURTH GENERATION W/RFL (01/11/2022 10:33 AM EDT) HIV-1/2 ANTIGEN AND ANTIBODIES, 4TH GENERATION W/ REFLEX NON-REACT JOSIE NON-REACT JOSIE [facility] Comment: HIV-1 antigen and HIV-1/HIV-2 [...] purpose. For additional information please refer to http://[employer]/faq/GLX930 (This link is being provided for informational/ educational purposes only.) The performance of this assay has not been clinically validated in patients less than 2 years old. 01/11/2022 10:3 3 AM EDT us Pooja Erickson MD LAB BLOOD ORDERABLES Final Resul t [facility] [address] [place] [id number], from Last 3 Months or Most Recently Relevant to Health Maintenance Insurance [address] [place], [place] [address] Care Teams Boil Off Machine Operator Cloth Relationship Specialty Start Date End Date Pooja Erickson MD [address] [place] [id number] PCP - General Family Medicine 11/22/21
--- OUTSIDE RECORDS SUMMARY | 2025-02-06 21:04 | XMS_ITS | Encounter Summary ---
Author Organization [facility] Address [address] [place] [address] Care Team Providers Care American Indian Studies Professor Name Role Phone Ref, Has No Pcp Or Primary Care Provider Unavail able Reason for Visit * Reason Onset Date Comments Actionable Finding 03/25/2024 Encounter Details Date Type Department Care Team (Late st Contact Info) Description 03/25/2024 Telephone [facility] - Actionable Findings [address] [facility] [address] [place] [address] Antonia Solo LPN Actionable Finding Social History [...] on filedocumented in this encounter Care Teams American Indian Studies Professor Relationship Specialty Start Date End Date Ref, Has No Pcp Or DO NOT EDIT THIS RECORD VIA PROVIDER ON THE FLY PCP - General Shoe Trimmer 03/12/24 documented as of this encounter
--- OUTSIDE RECORDS SUMMARY | 2025-02-06 21:04 | XMS_ITS | Encounter Summary ---
Author Organization [employer] Address [address] [place] [address] [address] [place] [id number] Care Team Providers Care Bucket Pusher Name Role Phone Pooja Erickson MD Primary Care Provider [phone] Encounter Details Date Type Department Care Team [...] on filedocumented in this encounter Care Teams Bucket Pusher Relationship Specialty Start Date End Date Pooja Erickson MD [address] [place] [phone] PCP - General Family Medicine 11/22/21 documented as of this encounter
--- OUTSIDE RECORDS SUMMARY | 2025-02-06 21:04 | XMS_ITS | Clinical Summary ---
Author Organization [facility] Address [address] [place] [address] Care Team Providers Care Engraver Tire Mold Name Role Phone Ref, Has No Pcp Or Primary Care Provider Unavail able Allergies Active Allergy Reactions Criticality Noted Date [...] Diphtheria Toxoid Conjugate Vaccine (MCV4P) 10/17/2006 Novel [id number], Preservative-Free, Injectable 07/21/2008 Poliovirus Vaccine, Inactivated 03/10/19 [...] 1993 HIV Screening Completed 01/11/2022, 01/11/[address] [place], [place] [address] [place], [place] [address]HE[place] Care Teams Eng[employer]ver [employer] Mold Relationship Specialty Start Date End Date Ref, Has No Pcp Or DO NOT EDIT THIS RECORD VIA PROVIDER ON THE FLY PCP - General Research Affiliate 03/12/24
--- NOTE | 2025-02-06 22:47 | PC.NURSE ---
pt given food and drink per physician
[2025-02-06 22:51] VITALS: BP 112/64; PULSE 57; RESP 18; TEMP 36; O2SAT 98
[2025-02-07 00:55] VITALS: BP 119/84; PULSE 60; RESP 16; TEMP 36.6; O2SAT 98
== END 2025-02-07 00:56 | disposition home or self-care (01) ==
PROVIDERS: Emergency Provider Emergency Medicine
DX: M54.50 Low back pain, unspecified (principal); M54.2 Cervicalgia; M54.6 Pain in thoracic spine
CPT/HCPCS: 72050; 72072; 99283; 99284

== ENCOUNTER → 2025-02-06 20:10 | Outpatient (BNV) | payer SELFPAY | PROVIDERS: Emergency Provider Emergency Medicine; Visit Provider Student in an Organized Health Care Education/Training Program | DX: M54.2 Cervicalgia (principal); M54.6 Pain in thoracic spine | CPT/HCPCS: 72050; 72072 ==

== ENCOUNTER 2025-02-20 19:18 | Emergency (ER) | payer MEDICAID, SELFPAY ==
--- NOTE | ~2025-02-20 | XR_ITS ---
CLINICAL HISTORY: pain, injury 3 view left foot Comparison: None provided Findings: No fractures or dislocations. Mild degenerative changes at the 2nd metatarsophalangeal joint. No ankle effusion. No radiopaque foreign body. IMPRESSION: 1. No acute fracture. This document has been electronically signed by: Barbara Concepcion MD on 02/20/2025 20:27:02
--- NOTE | ~2025-02-20 | XR_ITS ---
CLINICAL HISTORY: pain, injury 3 view left ankle Comparison: CR/MA/SR - XR ANKLE 1-2 VIEWS LEFT - 01/01/2023 06:56 PM EDT Findings: Bones intact. No dislocations. No significant arthritic change or erosions. No ankle effusion. No radiopaque foreign body. IMPRESSION: 1. No acute fracture. This document has been electronically signed by: Barbara Concepcion MD on 02/20/2025 20:26:43
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
[2025-02-20 19:26] VITALS: BP 118/65; PULSE 92; RESP 20; TEMP 36.7; O2SAT 95; BMI 27.9
--- OUTSIDE RECORDS SUMMARY | 2025-02-20 20:22 | XMS_ITS | Encounter Summary ---
Author Organization [facility] Address [address] [place] [address] Care Team Providers Care Metalsmith Name Role Phone Ref, Has No Pcp Or Primary Care Provider Unavail able Reason for Visit * Reason Onset Date Comments Actionable Finding 03/25/2024 Encounter Details Date Type Department Care Team (Late st Contact Info) Description 03/25/2024 Telephone [facility] - Actionable Findings [address] [facility] [address] [place] [address] Antonia Solo LPN Actionable Finding Social History [...] on filedocumented in this encounter Care Teams Metalsmith Relationship Specialty Start Date End Date Ref, Has No Pcp Or DO NOT EDIT THIS RECORD VIA PROVIDER ON THE FLY PCP - General Journeyman Electrician 03/12/24 documented as of this encounter
--- OUTSIDE RECORDS SUMMARY | 2025-02-20 20:22 | XMS_ITS | Clinical Summary ---
Author Organization [facility] Address [address] [place] [address] Care Team Providers Care Element Setter Name Role Phone Ref, Has No Pcp [...] Diphtheria Toxoid Conjugate Vaccine (MCV4P) 10/17/2006 Novel [id number], Preservative-Free, Injectable 07/21/2008 Poliovirus Vaccine, Inactivated 03/10/19 [...] Years) (1 of 2 - PCV) 2012 Alcohol/Substance Use Screening 06/10/2024 Depression Screening and Follow-Up 06/10/2024 Social Drivers of Health Nathalie ual Screening 06/10/2024 COVID-19 Vaccine ( - 2023-2 5 season) 2025 Influenza Vaccine (#1) 2025 04/19/2009, 2008 DTaP,Tdap,and Td Vaccines (8 - Td or Tdap) 04/23/2033 04/23/2023, 01/11/2022, 10/17/2006, Additional history exists RSV Vaccine (60+ years old a nd patients) (1 - 1-dose 75+ series) 2068 Hepatitis B Vaccines Completed 08/30/1994, 01/31/1994, 1993 HIV Screening Completed 01/11/2022, 01/11/2022 Insurance [place] Care Teams Element Setter Relationship Specialty Start Date End Date Ref, Has No Pcp Or DO NOT EDIT THIS RECORD VIA PROVIDER ON THE FLY PCP - General Christmas Tree Farm Worker 03/12/24
--- OUTSIDE RECORDS SUMMARY | 2025-02-20 20:22 | XMS_ITS | Encounter Summary ---
Author Organization [facility] Address [address] [place] [address] Care Team Providers Care Irradiated Fuel Handler Name Role Phone Ref, Has No Pcp Or Primary Care Provider Unavail able Reason for Visit * Reason [place] Date Comments Actionable Finding 03/25/2024 Encounter Details Date Type Department Care Team (Late st Contact Info) Description 03/25/2024 Telephone [facility] - Actionable Findings [address] [facility] [address] [place] [address] Antonia Solo LPN Actionable Finding Social History [...] on filedocumented in this encounter Care Teams Irradiated Fuel Handler Relationship Specialty Start Date End Date Ref, Has No Pcp Or DO NOT EDIT THIS RECORD VIA PROVIDER ON THE FLY PCP - General Certified Residential Medication Aide 03/12/24 documented as of this encounter
--- OUTSIDE RECORDS SUMMARY | 2025-02-20 20:22 | XMS_ITS | Encounter Summary ---
Author Organization [facility] [facility] Address [address] [place] [address] [address]t [address] Floor [place] [id number] Care Team Providers Care Child Care Cook Name Role Phone Pooja Erickson MD Primary Care Provider [phone] Encounter Details Date Type Department Care Team [...] on filedocumented in this encounter Care Teams Child Care Cook Relationship Specialty Start Date End Date Pooja Erickson MD [address] [place] [id number] PCP - General Family Medicine 11/22/21 documented as of this encounter
--- OUTSIDE RECORDS SUMMARY | 2025-02-20 20:22 | XMS_ITS | Clinical Summary ---
Author Organization [facility] [facility] Address [address] [place] [address] [address]t [place] [address] Care Team Providers Care Chair Pad Maker Name Role Phone Pooja Erickson MD Primary Care Provider Allergies Active Allergy Reactions Criticality Noted Date [...] MMR 02/08/1999,02/22/1995 Meningococcal MCV4P [id number]-135 10/17/2006 Novel [id number], preservative-free 07/21/2008 PPD Test 10/23/2011 Tdap 04/23/2023,01/11/2022,10/17/2006 [...] with others, in a hotel, in a senior living, living outside on the street, on a [...] the past 12 months, has t he [employer], gas, oil or water company threatened to [...] Vaccines (1 - Male 3-dose series) 2008 COVID-19 Vaccine (1 - season) 2025 Influenza Vaccine (#1) 2025 04/19/2009, 2008 Alcohol/Substance Use Screening 04/03/2025 04/03/2024 Depression Screening 04/03/2025 04/03/2024, 04/03/20 Pneumococcal Vaccine: [...] HEPATITIS C ANTIBODY NON-REACT JOSIE NON-REACT JOSIE [facility] INDEX 0.08 <1.00 [facility] Comment: HCV antibody was non-reactive. There is no laboratory evidence of HCV infection. In most cases, no further action is required. However, if recent HCV exposure is suspected, a test for HCV RNA (test code 76776) is suggested. For additional information please refer to http://[employer]/faq/FVQ29z2 (This link is being provided for informational/ educational purposes only.) 01/11/2022 10:3 3 AM EDT us Pooja Erickson MD HISTORICAL/NON ORDERABLE LABS Fi nal Result [facility] [address] * HIV 1/2 ANTIGEN/ANTIBODY,FOURTH GENERATION W/RFL (01/11/2022 10:33 AM EDT) HIV-1/2 ANTIGEN AND ANTIBODIES, 4TH GENERATION W/ REFLEX NON-REACT JOSIE NON-REACT JOSIE [facility] Comment: HIV-1 antigen and HIV-1/HIV-2 [...] purpose. For additional information please refer to http://[employer]/faq/GWL917 (This link is being provided for informational/ educational purposes only.) The performance of this assay has not been clinically validated in patients less than 2 years old. 01/11/2022 10:3 3 AM EDT us Pooja Erickson MD LAB BLOOD ORDERABLES Final Resul t [facility] [address] from Last 3 Months or Most Recently Relevant to Health Maintenance Insurance [address] [place], [place] [address]Gimmie C3 Care Teams Chair Pad Maker Relationship Specialty Start Date End Date Pooja Erickson MD [address] [place] [id number] PCP - General Family Medicine 11/22/21
[2025-02-20 22:03] VITALS: BP 118/65; PULSE 92; RESP 20; TEMP 36.7; O2SAT 95
[2025-02-20 22:05] VITALS: PULSE 92; RESP 18; O2SAT 95
[2025-02-20] MEDS: Lidocaine 4 % Patch ADH..PATCH 1 PATCH TRANSDERMA (22:14)
== END 2025-02-20 22:16 | disposition home or self-care (01) ==
PROVIDERS: Emergency Provider Emergency Medicine
DX: S90.32XA Contusion of left foot, initial encounter (principal); X58.XXXA Exposure to other specified factors, initial encounter; Y93.51 Activity, roller skating (inline) and skateboarding; Y92.9 Unspecified place or not applicable; Y99.9 Unspecified external cause status
CPT/HCPCS: 73610; 73630; 99283

== ENCOUNTER → 2025-02-20 19:25 | Outpatient (BNV) | payer MEDICAID, SELFPAY | PROVIDERS: Visit Provider Student in an Organized Health Care Education/Training Program | DX: M25.572 Pain in left ankle and joints of left foot (principal); S90.32XA Contusion of left foot, initial encounter; W25.XXXA Contact with sharp glass, initial encounter | CPT/HCPCS: 73610; 73630 ==

== ENCOUNTER 2025-02-27 04:30 | Emergency (ER) | payer MEDICAID, SELFPAY ==
--- NOTE | ~2025-02-27 | XR_ITS ---
CLINICAL HISTORY: pain 3 views thoracic spine Comparison: CR - XR THORACIC SPINE 3V - 02/06/25 20:46 EDT CR - XR CERVICAL SPINE 3V - 02/06/25 20:39 EDT Findings: The usual thoracic kyphosis is maintained without spondylolisthesis. Thoracic vertebral body heights are maintained. No significant thoracic discogenic degenerative disease or facet osteoarthritis. Mild multilevel cervical discogenic degenerative disease from C4 to C7. Similar mild anterior wedging of C5. IMPRESSION: No acute findings. This document has been electronically signed by: Titus Rao DO on 02/27/2025 11:18:54
--- NOTE | ~2025-02-27 | XR_ITS ---
CLINICAL HISTORY: pain Three views lumbar spine Comparison: None provided Findings: The usual lumbar lordosis is maintained without spondylolisthesis. Vertebral body heights are maintained. Minimal discogenic degenerative disease such as at L3-L4. IMPRESSION: No acute findings. This document has been electronically signed by: Titus Rao DO on 02/27/2025 11:21:35
[2025-02-27 04:32] VITALS: BP 131/82; PULSE 51; RESP 16; TEMP 36.3; O2SAT 98; BMI 27.9
--- OUTSIDE RECORDS SUMMARY | 2025-02-27 04:56 | XMS_ITS | Clinical Summary ---
Author Organization [facility] Address [address] [place] [address] Care Team Providers Care Solutions Development Analyst Name Role Phone Ref, Has No Pcp [...] Diphtheria Toxoid Conjugate Vaccine (MCV4P) 10/17/2006 Novel [id number], Preservative-Free, Injectable 07/21/2008 Poliovirus Vaccine, Inactivated 03/10/19 [...] 01/11/2022, 01/11/2022 Insurance [place] Care Teams Solutions Development Analyst Relationship Specialty Start Date End Date Ref, Has No Pcp Or DO NOT EDIT THIS RECORD VIA PROVIDER ON THE FLY PCP - General Mechanical Systems Engineer 03/12/24
--- OUTSIDE RECORDS SUMMARY | 2025-02-27 04:56 | XMS_ITS | Encounter Summary ---
Author Organization [employer] Address [address] [place] [address] [address]t [address] [place] [id number] Care Team Providers Care Electric Meter Reader Name Role Phone Pooja Erickson MD Primary Care Provider [phone] Encounter Details Date Type Department Care Team [...] on filedocumented in this encounter Care Teams Electric Meter Reader Relationship Specialty Start Date End Date Pooja Erickson MD [address] [place] [phone] PCP - General Family Medicine 11/22/21 documented as of this encounter
--- OUTSIDE RECORDS SUMMARY | 2025-02-27 04:56 | XMS_ITS | Encounter Summary ---
Author Organization [facility] Address [address] [place] [address] Care Team Providers Care Gauge Maker Name Role Phone Ref, Has No Pcp Or Primary Care Provider Unavail able Reason for Visit * Reason Onset Date Comments Actionable Finding 03/25/2024 Encounter Details Date Type Department Care Team (Late st Contact Info) Description 03/25/2024 Telephone [facility] - Actionable Findings [address] [facility] [address] [place] [address] Antonia Solo LPN Actionable Finding Social History [...] on filedocumented in this encounter Care Teams Gauge Maker Relationship Specialty Start Date End Date Ref, Has No Pcp Or DO NOT EDIT THIS RECORD VIA PROVIDER ON THE FLY PCP - General Cafe Assistant 03/12/24 documented as of this encounter
--- OUTSIDE RECORDS SUMMARY | 2025-02-27 04:56 | XMS_ITS | Clinical Summary ---
Author Organization [facility] [facility] Address [address] [place] [address] [address]t [place] [address] Care Team Providers Care Rubber Thread Spooler Name Role Phone Pooja Erickson MD Primary Care Provider [phone] Allergies Active Allergy Reactions Criticality Noted Date [...] MMR 02/08/1999,02/22/1995 Meningococcal MCV4P ACYW-135 10/17/2006 Novel [id number]-[id number], preservative-free 07/21/2008 PPD Test 10/23/2011 Tdap 04/23/2023,01/11/2022,10/17/2006 [...] others, in a hotel, in a senior care, living outside on the street, on a [...] the past 12 months, has t he [employer], gas, oil or water company threatened to [...] HEPATITIS C ANTIBODY NON-REACT JOSIE NON-REACT JOSIE [facility] INDEX 0.08 <1.00 [facility] Comment: HCV antibody was non-reactive. There is no laboratory evidence of HCV infection. In most cases, no further action is required. However, if recent HCV exposure is suspected, a test for HCV RNA (test code 97794) is suggested. For additional information please refer to http://[employer]/faq/CPW21x3 (This link is being provided for informational/ educational purposes only.) 01/11/2022 10:3 3 AM EDT us Pooja Erickson MD HISTORICAL/NON ORDERABLE LABS Fi nal Result [facility] [address] * HIV 1/2 ANTIGEN/ANTIBODY,FOURTH GENERATION W/RFL (01/11/2022 10:33 AM EDT) HIV-1/2 ANTIGEN AND ANTIBODIES, 4TH GENERATION W/ REFLEX NON-REACT JOSIE NON-REACT JOSIE [facility] Comment: HIV-1 antigen [...] purpose. For additional information please refer to http://[employer]/faq/PTQ240 (This link is being provided for informational/ educational purposes only.) The performance of this assay has not been clinically validated in patients less than 2 years old. 01/11/2022 10:3 3 AM EDT us Pooja Erickson MD LAB BLOOD ORDERABLES Final Resul t [facility] [address] from Last 3 Months or Most Recently Relevant to Health Maintenance Insurance [address] [place], [place] [address] C3 Care Teams Rubber Thread Spooler Relationship Specialty Start Date End Date Pooja Erickson MD [address] [place] [id number] PCP - General Family Medicine 11/22/21
--- OUTSIDE RECORDS SUMMARY | 2025-02-27 04:56 | XMS_ITS | Encounter Summary ---
Author Organization [facility] Address [address] [place] [address] Care Team Providers Care Girl Friday Name Role Phone Ref, Has No Pcp Or Primary Care Provider Unavail able Reason for Visit * Reason Onset Date Comments Actionable Finding 03/25/2024 Encounter Details Date Type Department Care Team (Late st Contact Info) Description 03/25/2024 Telephone [facility] - Actionable Findings [address] [facility] [address] [place] [address] Antonia Solo LPN Actionable Finding Social History [...] on filedocumented in this encounter Care Teams Girl Friday Relationship Specialty Start Date End Date Ref, Has No Pcp Or DO NOT EDIT THIS RECORD VIA PROVIDER ON THE FLY PCP - General Angle Roll Operator 03/12/24 documented as of this encounter
[2025-02-27 05:54] VITALS: BP 121/65; PULSE 58; RESP 22; TEMP 36.6; O2SAT 96
--- NOTE | 2025-02-27 06:54 | ED.BACK ---
HPI - Back Pain/Injury General Chief Complaint: Back Pain/Injury Stated Complaint: back pain from previous inj Time Seen by Provider: 02/27/25 06:45 Source: patient Mode of arrival: ambulatory Limitations: no limitations History of Present Illness ED Provider: DR. Epperson HPI Narrative: 29-year-old male history of schizoaffective disorder, bipolar, antisocial personality came in for evaluation of lower back pain, no recent use of IV drugs, no fever, no chills, no stool or urine incontinence, no recent strenuous activity or injury to the lower back. Related Data Previous Rx's ?Medication ?Instructions ?Recorded olanzapine 7.5 mg tablet 7.5 mg PO BEDTIME 30 days #30 tabs 11/20/21 albuterol sulfate 90 mcg/actuation 2 puff inhalation Q4-6H PRN 04/25/22 aerosol inhaler (ProAir HFA) shortness of breath or wheezing #8.5 grams ibuprofen 400 mg tablet 400 mg PO Q8H PRN pain #14 tabs 01/01/23 cyclobenzaprine 10 mg tablet 10 mg PO TID PRN muscle spasm #10 02/27/25 tabs ibuprofen 600 mg tablet 600 mg PO TID PRN pain #14 tabs 02/27/25 Allergies Allergy/AdvReac Type Severity Reaction Status Date / Time No Known Allergies Allergy Verified 02/27/25 04:38 Review of Systems Review of Systems: All other systems are reviewed and are negative Constitutional: Reports as per HPI and Reports no additional constitutional complaints Eyes: Reports as per HPI and Reports no additional eye complaints Reports system reviewed and no additional complaints, except as documented Cardiovascular: Reports as per HPI and Reports no additional cardiovascular complaints Respiratory: Reports as per HPI and Reports no additional respiratory complaints Gastrointestinal: Reports as per HPI and Reports no additional gastrointestinal complaints Genitourinary: Reports no additional female genitourinary complaints Musculoskeletal: Reports no additional musculoskeletal complaints Skin/Breast: Reports system reviewed and no additional complaints, except as docu Psychiatric: Reports no additional psychiatric complaints Endocrine: Reports no additional endocrine complaints Hematologic/Lymphatic: Reports no additional hematologic/lymphatic complaints Allergic/Immunologic: Reports no additional allergic/immunologic complaints Reports system reviewed and no additional complaints, except as documented and Reports Abnormal speech present [facility] Past Medical History Medical History Antisocial personality disorder Schizophrenia Social History Social History Household Members: None Housing: Apartment Do you presently have visiting nurse or other home services: Yes Alcohol intake: former Patient Tobacco Use Status: Never used Tobacco Smoked in Last 30 Days: Yes e-Cigarette/Vaping Use: Never Used Second Hand Smoke Exposure: No Substance Use Type: Marijuana Substance Use Frequency: Daily Advance Directives: No Advance Directives Information Provided: Yes Do you have a plan to hurt others: No Plan service: No Sexual orientation: Straight/Heterosexual Physical Exam Vital Signs: Vital Signs: Last Vital Signs Temp 97.2 F 02/27/25 07:12 Pulse 55 02/27/25 07:12 Resp 16 02/27/25 07:12 BP 120/80 02/27/25 07:12 Pulse Ox 97 02/27/25 07:12 O2 Del Method Room Air 02/27/25 07:12 BMI result Body Mass Index 27.9 Vital signs have been reviewed and appear to be correct. Blood pressure elevated. Heart rate normal. Respiratory rate normal. Temperature normal. Oxygen saturation normal. Appearance: Alert. Oriented X3. No acute distress. Head: Normal external exam. Normocephalic. Atraumatic. No Antonio signs noted. No raccoon eyes noted Eyes: PERRLA. EOMI. Conjunctiva and sclera normal. Eyelids normal. ENT: TM's Normal. Pharynx normal. Uvula midline. Moist mucous membranes. No trismus noted. No drooling noted. No muffled voice noted. Neck: Normal inspection. Neck supple. FROM. No adenopathy. Thyroid Normal. No meningeal signs. No neck mass noted. CVS: Normal heart rate and rhythm. Heart sound normal. No murmurs noted. Pulses normal throughout. Respiratory: No respiratory distress. Painless inspiration. Breath sounds normal. No wheezes/rales/rhonchi noted. Chest nontender. No accessory muscle usage noted or decreased air movement noted. Abdomen: Soft and nontender. Bowel sounds normal in all 4 quadrants. No distention noted. No organomegaly noted. No visible injury noted. Back: No CVA tenderness. Full range of motion noted. Skin: Skin warm and dry. Normal skin color. Normal skin turgor. No rashes/lesions/lacerations noted. Extremities: No lower extremity edema. Extremities exhibit normal range of motion. Extremities nontender. Neuro: Oriented X 3. Cranial nerve exam: II-XII are grossly intact No motor deficit. No sensory deficit. Reflexes normal. Course Reevaluation(s) Reevaluation #1: Acute on chronic back pain, no definitive injury or trauma to the back, no fever, no chills, no history of drug use, x-ray is unremarkable for acute pathology. Discharge home NSAIDs if needed for pain. Time: 09:00 Medications Administered Discontinued Medications Generic Name Dose Route Start Last Admin Trade Name Freq PRN Reason Stop Dose Admin Cyclobenzaprine HCl 10 mg 02/27/25 06:52 02/27/25 07:08 Cyclobenzaprine Hcl 10 Mg Tablet PO 02/27/25 06:53 10 mg ONCE ONE Administration Ibuprofen 800 mg 02/27/25 06:52 02/27/25 07:08 Ibuprofen 800 Mg Tablet PO 02/27/25 06:53 800 mg ONCE ONE Administration Medical Decision Making Differential Diagnosis Differential Diagnoses: The differential diagnosis associated with the presentation includes (Degenerative joint disease, back fracture, back sprain, cauda equina syndrome, neurological deficit.) Admission/Observation Consideration of admission/observation: Escalation of care including admission/observation considered Independent Interpretation I performed an independent interpretation of an: Plain X-Ray (Lumbar spine: No acute pathology on the x-ray.) Radiology Impression Discussion of test interpretation with radiology: I have reviewed the radiologist's reading. Discharge Plan Discharge Clinical Impression: Strain of lumbar region Patient Disposition: Home, Self-Care Instructions: Back Pain (ED) Prescriptions: New cyclobenzaprine 10 mg tablet 10 mg PO TID PRN (Reason: muscle spasm) Qty: 10 0RF ibuprofen 600 mg tablet 600 mg PO TID PRN (Reason: pain) Qty: 14 0RF No Action albuterol sulfate [ProAir HFA] 90 mcg/actuation HFA aerosol inhaler 2 puff inhalation Q4-6H PRN (Reason: shortness of breath or wheezing) Qty: 8.5 0RF olanzapine 7.5 mg tablet 7.5 mg PO BEDTIME 30 Days Qty: 30 0RF Rx Instructions: Send to: [address] [address] ibuprofen 400 mg tablet 400 mg PO Q8H PRN (Reason: pain) Qty: 14 0RF Print Language: Swazi
[2025-02-27 07:12] VITALS: BP 120/80; PULSE 55; RESP 16; TEMP 36.2; O2SAT 97
[2025-02-27 12:26] VITALS: BP 120/80; PULSE 55; RESP 16; TEMP 36.2; O2SAT 97
== END 2025-02-27 12:26 | disposition home or self-care (01) ==
PROVIDERS: Emergency Provider Emergency Medicine
DX: S39.012A Strain of muscle, fascia and tendon of lower back, initial encounter (principal); X58.XXXA Exposure to other specified factors, initial encounter; Y93.9 Activity, unspecified; Y92.9 Unspecified place or not applicable; Y99.9 Unspecified external cause status
CPT/HCPCS: 72070; 72100; 99283; 99284

== ENCOUNTER → 2025-02-27 06:52 | Outpatient (BNV) | payer MEDICAID, SELFPAY | PROVIDERS: Emergency Provider Emergency Medicine; Visit Provider Radiology Diagnostic Radiology | DX: M54.50 Low back pain, unspecified (principal); M54.6 Pain in thoracic spine | CPT/HCPCS: 72070; 72100 ==

== ENCOUNTER 2025-02-27 23:02 | Emergency (ER) | payer MEDICAID, SELFPAY ==
[2025-02-27 23:06] VITALS: BP 130/78; PULSE 60; RESP 16; TEMP 36.7; O2SAT 97; BMI 28.5
--- OUTSIDE RECORDS SUMMARY | 2025-02-27 23:39 | XMS_ITS | Encounter Summary ---
Author Organization [facility] Address [address] [place] [address] Care Team Providers Care Sql Tech Name Role Phone Ref, Has No Pcp Or Primary Care Provider Unavail able Reason for Visit * Reason Onset Date Comments Actionable Finding 03/25/2024 Encounter Details Date Type Department Care Team (Late st Contact Info) Description 03/25/2024 Telephone [facility] - Actionable Findings [address] [place] [address] Antonia Solo LPN Actionable Finding Social History [...] on filedocumented in this encounter Care Teams Sql Tech Relationship Specialty Start Date End Date Ref, Has No Pcp Or DO NOT EDIT THIS RECORD VIA PROVIDER ON THE FLY PCP - General Inflated Pad Buffer 03/12/24 documented as of this encounter
--- OUTSIDE RECORDS SUMMARY | 2025-02-27 23:39 | XMS_ITS | Encounter Summary ---
Author Organization [facility] Address [address] [place] [address] Care Team Providers Care Automation Tech Name Role Phone Ref, Has No Pcp Or Primary Care Provider Unavail able Reason for Visit * Reason Onset Date Comments Actionable Finding 03/25/2024 Encounter Details Date Type Department Care Team (Late st Contact Info) Description 03/25/2024 Telephone [facility] - Actionable Findings [address] [place] [address] Antonia Solo LPN Actionable Finding Social History [...] on filedocumented in this encounter Care Teams Automation Tech Relationship Specialty Start Date End Date Ref, Has No Pcp Or DO NOT EDIT THIS RECORD VIA PROVIDER ON THE FLY PCP - General Footwear Production Machine Operator 03/12/24 documented as of this encounter
--- OUTSIDE RECORDS SUMMARY | 2025-02-27 23:39 | XMS_ITS | Clinical Summary ---
Author Organization [facility] Address [address] [place] [address] Care Team Providers Care Choir Teacher Name Role Phone Ref, Has No Pcp [...] Diphtheria Toxoid Conjugate Vaccine (MCV4P) 10/17/2006 Novel [id number], Preservative-Free, Injectable 07/21/2008 Poliovirus Vaccine, Inactivated 03/10/19 [...] 01/11/2022, 01/11/2022 Insurance [place] Care Teams Choir Teacher Relationship Specialty Start Date End Date Ref, Has No Pcp Or DO NOT EDIT THIS RECORD VIA PROVIDER ON THE FLY PCP - General Child Life Therapist 03/12/24
--- NOTE | 2025-02-28 00:10 | ED_ITS ---
HPI - Back Pain/Injury General Chief Complaint: Back Pain/Injury Stated Complaint: back pain Time Seen by Provider: 02/27/25 23:30 History of Present Illness HPI Narrative: Patient is 29 years old presents today with having back pain. The back pain is over the lower back. Patient received an x-ray last night. They were grossly negative. Continued to have the pain. There is no bowel urinary incontinence is no focal weakness is no new trauma. Patient is from home. Related Data Previous Rx's ?Medication ?Instructions ?Recorded olanzapine 7.5 mg tablet 7.5 mg PO BEDTIME 30 days #3 0 tabs 11/20/21 albuterol sulfate 90 mcg/actuation 2 puff inhalation Q 4-6H PRN 04/25/22 aerosol inhaler (ProAir HFA) shortness of breath or wh eezing #8.5 grams ibuprofen 400 mg tablet 400 mg PO Q8H PRN pain #14 t abs 01/01/23 cyclobenzaprine 10 mg tablet 10 mg PO TID PRN muscle s pasm #10 02/27/25 tabs ibuprofen 600 mg tablet 600 mg PO TID PRN pain #14 t abs 02/27/25 Allergies Allergy/AdvReac Type Severity Reaction Status Date / Time No Known Allergies Allergy Verified 02/27/25 23:09 Review of Systems Review of Systems: Positive back pain Yes all other systems are reviewed and are negative PMFSH Past Medical History Attestation statement: The following information was validated with the patient. Medical History Antisocial personality disorder Schizophrenia Social History Social History Household Members: None Housing: Apartment Do you presently have visiting nurse or other home services: Yes Alcohol intake: former Patient Tobacco Use Status: Never used Tobacco e-Cigarette/Vaping Use: Never Used Second Hand Smoke Exposure: No Substance Use Type: Marijuana Advance Directives: No Advance Directives Information Provided: Yes Do you have a plan to hurt others: No Plan service: No Sexual orientation: Straight/Heterosexual Physical Exam Exam: Exam: Appearance: Alert. Oriented X3. No acute distress. Eyes: Pupils equal, round and reactive to light. ENT: Pharynx normal. Neck: Normal inspection. Neck supple. No lymph nodes noted. No crepitus CVS: Normal heart rate and rhythm. Pulses normal. Normal S1 and S2 Respiratory: No respiratory distress. Breath sounds normal. No Wheezing. No rales Abdomen: Soft and nontender. No rigidity. No distention. good BS x4 Back exam there is no posterior spine tenderness. There is no CVA tenderness. Skin: Skin warm and dry. Normal skin color. Normal skin turgor. Extremities: No lower extremity edema. Neurovascular intact to all extremities. No Lacerations. No Rash Neuro: Oriented X 3. No motor deficit. No sensory deficit. Moving all extermities. No slurred speech Vital Signs: Vital Signs: Last Vital Signs Temp 98.1 F 02/27/25 23:06 Pulse 60 02/27/25 23:06 Resp 16 02/27/25 23:06 BP 130/78 02/27/25 23:06 Pulse Ox 97 02/27/25 23:06 O2 Del Method Room Air 02/27/25 23:06 BMI result Body Mass Index 28.5 Medical Decision Making Medical Decision Making [facility] Narrative: Patient denies any bowel urinary incontinence there is no focal weakness. Patient's symptoms not consistent with having cauda equinus syndrome. Patient's x-ray yesterday was negative there is no new trauma history not consistent with a fracture there is no point tenderness elicited. No history of IV drug use. Ambulated well in the emergency department. Will discharge patient home close follow-up on an outpatient basis Motrin for pain. Differential Diagnosis Differential Diagnoses: The differential diagnosis associated with the presentation includes Fracture, cauda equinus syndrome Admission/Observation Consideration of admission/observation: Escalation of care including admission/observation considered Lab Data [facility] Lab Attestation statement: I reviewed the patient's lab results. Radiology Impression Discussion of test interpretation with radiology: I have reviewed the radiologist's reading. Radiologist Impression: I reviewed patient's x-ray from yesterday Social Determinants Patient?s care significantly limited by Social Determinants of Health including: Problems related to primary support group and Unemployment Discharge Plan Discharge Clinical Impression: Strain of lumbar region Patient Disposition: Home, Self-Care Instructions: Back Pain (ED) Prescriptions: No Action albuterol sulfate [ProAir HFA] 90 mcg/actuation HFA aerosol inhaler 2 puff inhalation Q4-6H PRN (Reason: shortness of breath or wheezing) Qty: 8.5 0RF olanzapine 7.5 mg tablet 7.5 mg PO BEDTIME 30 Days Qty: 30 0RF Rx Instructions: Send to: [address] [address] ibuprofen 400 mg tablet 400 mg PO Q8H PRN (Reason: pain) Qty: 14 0RF cyclobenzaprine 10 mg tablet 10 mg PO TID PRN (Reason: muscle spasm) Qty: 10 0RF ibuprofen 600 mg tablet 600 mg PO TID PRN (Reason: pain) Qty: 14 0RF Referrals: Physician,Unknown J [Primary Care Provider, Medical] - 03/02/25 Print Language: Kinyarwanda
[2025-02-28 00:21] VITALS: BP 143/77; PULSE 63; RESP 16; TEMP 36.7; O2SAT 97
== END 2025-02-28 00:22 | disposition home or self-care (01) ==
PROVIDERS: Emergency Provider Emergency Medicine Emergency Medical Services
DX: S39.012A Strain of muscle, fascia and tendon of lower back, initial encounter (principal); X58.XXXA Exposure to other specified factors, initial encounter; Y93.9 Activity, unspecified; Y92.9 Unspecified place or not applicable; Y99.9 Unspecified external cause status
CPT/HCPCS: 99282; 99283

== ENCOUNTER 2025-02-28 02:09 | Emergency (ER) | payer MEDICAID, SELFPAY ==
[2025-02-28 02:18] VITALS: BP 123/76; PULSE 66; RESP 16; TEMP 36.4; O2SAT 98; BMI 25.1
--- NOTE | 2025-02-28 02:28 | ED_ITS ---
HPI - Psych General Chief Complaint: Psychiatric Symptoms Stated Complaint: Psych Time Seen by Provider: 02/28/25 02:27 History of Present Illness ED Provider: Dennis Mendes MD HPI Narrative: 29-year-old male comes in for depression anxiety vague suicidal ideation. Poor historian no additional details provided. He does not report medical complaints to me Related Data Previous Rx's ?Medication ?Instructions ?Recorded olanzapine 7.5 mg tablet 7.5 mg PO BEDTIME 30 days #3 0 tabs 11/20/21 albuterol sulfate 90 mcg/actuation 2 puff inhalation Q 4-6H PRN 04/25/22 aerosol inhaler (ProAir HFA) shortness of breath or wh eezing #8.5 grams ibuprofen 400 mg tablet 400 mg PO Q8H PRN pain #14 t abs 01/01/23 cyclobenzaprine 10 mg tablet 10 mg PO TID PRN muscle s pasm #10 02/27/25 tabs ibuprofen 600 mg tablet 600 mg PO TID PRN pain #14 t abs 02/27/25 Allergies Allergy/AdvReac Type Severity Reaction Status Date / Time No Known Allergies Allergy Verified 02/28/25 02:19 [facility] Past Medical History Medical History Antisocial personality disorder Schizophrenia Social History Social History Household Members: None Housing: Apartment Do you presently have visiting nurse or other home services: Yes Alcohol intake: former Patient Tobacco Use Status: Never used Tobacco e-Cigarette/Vaping Use: Never Used Second Hand Smoke Exposure: No Substance Use Type: Marijuana Advance Directives: No Advance Directives Information Provided: Yes Do you have a plan to hurt others: No Plan service: No Sexual orientation: Straight/Heterosexual Physical Exam 2 Exam: Exam: GENERAL: Well appearing. No apparent distress. Alert. HEAD/NECK: No visual trauma. EYES: Normal to inspection. No conjunctival erythema. No discharge. ENMT: Hearing grossly normal. External nose normal. RESPIRATORY: Respiratory effort normal. CARDIOVASCULAR: Additional details (Grossly well perfused). SKIN: No jaundice. NEUROLOGICAL: Alert. Moving all extremities x4. Additional details (No gross motor deficits. Normal tone. ). Cranial nerves 2 through 12 grossly intact PSYCHIATRIC: Alert. Appearance appropriate for situation. Vital Signs: Vital Signs: Last Vital Signs Temp 97.8 F 02/28/25 11:19 Pulse 77 02/28/25 11:19 Resp 16 02/28/25 11:19 BP 118/74 02/28/25 11:19 Pulse Ox 98 02/28/25 11:19 O2 Del Method Room Air 02/28/25 11:19 BMI result Body Mass Index 25.1 Course Reevaluation(s) Reevaluation #1: Time: Date: 02/28/25 Provider: DR. Epperson Care team evaluation is appreciated, no SI, no HI, patient wanted to be discharged he will try to get into a penitentiary. Time: 09:55 Medical Decision Making Medical Decision Making MDM Narrative: 29-year-old male reporting suicidal ideation. No medical complaints. Physical examination without evidence of acute medical emergency or traumatic injuries. Patient has poor historian offers little to me overnight. Lab Data 02/28/25 03:28 02/28/25 03:28 Labs: Lab Results 02/28/25 Range/Units 03:28 WBC 6.9 (4.8-10.8) X10*3/uL RBC 4.42 L (4.60-5.80) X10*6/uL Hgb 14.5 (14.0-18.0) g/dl Hct 40.5 L (42.0-52.0) % MCV 91.6 (80.0-98.0) fL MCH 32.8 (27.0-33.0) pg MCHC 35.8 (31.0-36.0) g/dl RDW 12.5 (11.0-16.0) % Plt Count 240 (160-400) X10*3/uL MPV 9.6 (9.4-12.4) fL Immature Gran % (Auto) 0.1 (0.0-0.4) % Neut % (Auto) 54.6 (45-73) % Lymph % (Auto) 33.4 (20-40) % Freestone % (Auto) 8.0 (2-11) % Eos % (Auto) 3.2 (0-4) % Baso % (Auto) 0.7 (0-2) % Lymph # (Auto) 2.3 (1.2-4.9) X10*3/uL Freestone # (Auto) 0.6 (0.1-1.2) X10*3/uL Eos # (Auto) 0.2 (0.0-0.4) X10*3/uL Baso # (Auto) 0.1 (0.0-0.2) X10*3/uL Abs Immat Gran (auto) 0.01 (0.00-0.03) X10*3/uL Absolute Neuts (auto) 3.7 (2.0-8.3) x10*3/uL Absolute Nucleated RBC 0.000 (0.0-0.012) X10*3/uL Nucleated RBC % (auto) 0.0 (0.0-0.2) /100WBC Sodium 141 (135-145) mmol/L Potassium 3.8 (3.3-5.1) mmol/L Chloride 106 (96-108) mmol/L Carbon Dioxide 27 (22-29) mmol/L Anion Gap 12 (12-20) BUN 19 H (9-16) mg/dL Creatinine 0.96 (0.5-1.4) mg/dL Estim Creat Clear Calc 104.2 Estimated GFR > 60 Random Glucose 118 H (60-115) mg/dL Calcium 9.2 (8.4-10.2) mg/dL Total Bilirubin 0.3 (0.0-1.0) mg/dL AST 33 (5-37) U/L ALT 38 (0-40) U/L Alkaline Phosphatase 56 (39-117) U/L Total Protein 6.8 (6.5-8.0) g/dL Albumin 4.1 (3.5-5.0) g/dL Urine Opiates Screen Not Detected (Not Detect) Ur Buprenorphine Scrn Not Detected (Not Detect) ng/mL Ur Oxycodone Screen Not Detected (Not Detect) ng/mL Urine Methadone Screen Not Detected (Not Detect) ng/mL Urine Fentanyl Screen Not Detected (Not Detect) Ur Barbiturates Screen Not Detected (Not Detect) Ur Phencyclidine Scrn Not Detected (Not Detect) Ur Amphetamines Screen Not Detected (Not Detect) U Benzodiazepines Scrn Not Detected (Not Detect) Urine Cocaine Screen Not Detected (Not Detect) U Marijuana (THC) Screen POSITIVE H (Not Detect) Ethyl Alcohol < 10 mg/dL Discharge Plan Discharge Clinical Impression: Homelessness, Depression Patient Disposition: Home, Self-Care Instructions: Depression (ED) Prescriptions: No Action albuterol sulfate [ProAir HFA] 90 mcg/actuation HFA aerosol inhaler 2 puff inhalation Q4-6H PRN (Reason: shortness of breath or wheezing) Qty: 8.5 0RF olanzapine 7.5 mg tablet 7.5 mg PO BEDTIME 30 Days Qty: 30 0RF Rx Instructions: Send to: [address] [address] ibuprofen 400 mg tablet 400 mg PO Q8H PRN (Reason: pain) Qty: 14 0RF cyclobenzaprine 10 mg tablet 10 mg PO TID PRN (Reason: muscle spasm) Qty: 10 0RF ibuprofen 600 mg tablet 600 mg PO TID PRN (Reason: pain) Qty: 14 0RF Interventions: Sebastian-Suicide Risk Severity Scale Last Done: 02/28/25 11:19 ED Discharge Assessment Last Done: 02/28/25 11:19 Discharge Date/Time: 02/28/25 11:25 Print Language: Uzbek
--- OUTSIDE RECORDS SUMMARY | 2025-02-28 02:28 | XMS_ITS | Clinical Summary ---
Author Organization [facility] [employer] Address [address] [place] [address] [address] [place] [address] Care Team Providers Care Round Boner Name Role Phone Pooja Erickson MD Primary Care Provider [phone] Allergies Active Allergy Reactions Criticality Noted Date [...] MMR 02/08/1999,02/22/1995 Meningococcal MCV4P ACYW-135 10/17/2006 Novel [id number], preservative-free 07/21/2008 PPD Test 10/23/2011 Tdap 04/23/2023,01/11/2022,10/17/2006 [...] the past 12 months, has t he [employer], gas, oil or water company threatened to [...] ANTIBODY NON-REACT JOSIE NON-REACT JOSIE [facility] INDEX 0.08 <1.00 [facility] Comment: HCV antibody was non-reactive. There is no laboratory evidence of HCV infection. In most cases, no further action is required. However, if recent HCV exposure is suspected, a test for HCV RNA (test code 08512) is suggested. For additional information please refer to http://OnSwipe.Praccel/faq/XSC30c1 (This link is being provided for informational/ educational purposes only.) 01/11/2022 10:3 3 AM EDT us Pooja Erickson MD HISTORICAL/NON ORDERABLE LABS Fi nal Result [facility] [address] * HIV 1/2 ANTIGEN/ANTIBODY,FOURTH GENERATION W/RFL (01/11/2022 10:33 AM EDT) HIV-1/2 ANTIGEN AND ANTIBODIES, 4TH GENERATION W/ REFLEX NON-REACT JOSIE NON-REACT JOSIE [facility] Comment: HIV-1 antigen and [...] purpose. For additional information please refer to http://OnSwipe.Praccel/faq/ZLS166 (This link is being provided for informational/ educational purposes only.) The performance of this assay has not been clinically validated in patients less than 2 years old. 01/11/2022 10:3 3 AM EDT us Pooja Erickson MD LAB BLOOD ORDERABLES Final Resul t [facility] [address] from Last 3 Months or Most Recently Relevant to Health Maintenance Insurance [address] [place] [email or web address] Care Teams Round Boner Relationship Specialty Start Date End Date Pooja Erickson MD [address] [place] [id number] PCP - General Family Medicine 11/22/21
--- OUTSIDE RECORDS SUMMARY | 2025-02-28 02:28 | XMS_ITS | Encounter Summary ---
Author Organization [email or web address] Address [address] [place] [address] [address] [place] [id number] Care Team Providers Care Flight Security Specialist Name Role Phone Pooja Erickson MD Primary Care Provider [phone] Encounter Details Date Type Department Care Team [...] on filedocumented in this encounter Care Teams Flight Security Specialist Relationship Specialty Start Date End Date Pooja Erickson MD [address] [place] [id number] PCP - General Family Medicine 11/22/21 documented as of this encounter
[2025-02-28 03:32] LABS: MANUAL DIFF FLAG NO
[2025-02-28 03:33] LABS: Hematocrit 40.5 % (42.0-52.0); Hemoglobin 14.5 g/dl (14.0-18.0); Imm Gran Abs Auto 0.01 X10*3/uL (0.00-0.03); Imm Gran Pct Auto 0.1 % (0.0-0.4); Lymphocytes Absolute Auto 2.3 X10*3/uL (1.2-4.9); Mean Corpuscular HGB Conc 35.8 g/dl (31.0-36.0); Mean Corpuscular Hemoglobin 32.8 pg (27.0-33.0); Mean Corpuscular Volume 91.6 fL (80.0-98.0); NRBC Abs Auto 0.000 X10*3/uL (0.0-0.012); NRBC Pct Auto 0.0 /100WBC (0.0-0.2); Platelet Count 240 X10*3/uL (160-400); Red Blood Count 4.42 X10*6/uL (4.60-5.80); White Blood Count 6.9 X10*3/uL (4.8-10.8)
[2025-02-28 03:53] LABS: Alanine Aminotransferase 38 U/L (0-40); Albumin Level 4.1 g/dL (3.5-5.0); Alkaline Phosphatase 56 U/L (39-117); Anion Gap 12 (12-20); Aspartate Amino Transferase 33 U/L (5-37); Blood Urea Nitrogen 19 mg/dL (9-16); Calcium 9.2 mg/dL (8.4-10.2); Cannabinoid Screen Urine POSITIVE (Not Detect); Carbon Dioxide 27 mmol/L (22-29); Chloride 106 mmol/L (96-108); Creatinine Clr Calc Pharmacy 104.2; Estimated Glomerular Filt Rate > 60; Potassium 3.8 mmol/L (3.3-5.1); Sodium 141 mmol/L (135-145); Total Protein 6.8 g/dL (6.5-8.0)
[2025-02-28 06:00] VITALS: BP 118/74; PULSE 77; RESP 16; TEMP 36.6; O2SAT 98
--- NOTE | 2025-02-28 10:46 | PC.NURSE ---
Addendum entered by Belkis Nair RN 02/28/25 11:20: Pt cleared for D/C at this time. D/C paperwork provided. Pts belongings returned at this time. Original Note: Pt requests this RN at bedside. He states that he is no longer suicidal and feels like he does not require inpatient care. Pt requests to be discharged. Spoke with Care Team to report Pts statement/request. Care Team will follow up with Pt and discuss with ED provider. Awaiting dispo.
[2025-02-28 11:19] VITALS: BP 118/74; PULSE 77; RESP 16; TEMP 36.6; O2SAT 98
== END 2025-02-28 11:25 | disposition home or self-care (01) ==
PROVIDERS: Emergency Provider Emergency Medicine
DX: F33.1 Major depressive disorder, recurrent, moderate (principal); F41.9 Anxiety disorder, unspecified; R45.851 Suicidal ideations; Z59.00 Homelessness unspecified; Z51.81 Encounter for therapeutic drug level monitoring; Z79.899 Other long term (current) drug therapy
CPT/HCPCS: 36415; 80053; 80307; 85025; 99284; S9485

== ENCOUNTER 2025-03-02 22:38 | Emergency (ER) | payer MEDICAID, SELFPAY ==
[2025-03-02 22:40] VITALS: BP 148/78; PULSE 75; RESP 15; TEMP 36.9; O2SAT 99; BMI 29.3
--- OUTSIDE RECORDS SUMMARY | 2025-03-03 01:12 | XMS_ITS | Clinical Summary ---
Author Organization [facility] Address [address] [place] [address] Care Team Providers Care Adding Machine Servicer Name Role Phone Ref, Has No Pcp [...] Diphtheria Toxoid Conjugate Vaccine (MCV4P) 10/17/2006 Novel [id number], Preservative-Free, Injectable 07/21/2008 Poliovirus Vaccine, Inactivated 03/10/19 [...] 01/11/2022, 01/11/2022 Insurance [place] Care Teams Adding Machine Servicer Relationship Specialty Start Date End Date Ref, Has No Pcp Or DO NOT EDIT THIS RECORD VIA PROVIDER ON THE FLY PCP - General Camera Control Operator 03/12/24
--- OUTSIDE RECORDS SUMMARY | 2025-03-03 01:12 | XMS_ITS | Encounter Summary ---
Author Organization [facility] Address [address] [place] [address] Care Team Providers Care Associate Programmer Analyst Name Role Phone Ref, Has No Pcp Or Primary Care Provider Unavail able Reason for Visit * Reason Onset Date Comments Actionable Finding 03/25/2024 Encounter Details Date Type Department Care Team (Late st Contact Info) Description 03/25/2024 Telephone [facility] - Actionable Findings [address] [place] [address] Antonia Solo LPN Actionable Finding Social History [...] on filedocumented in this encounter Care Teams Associate Programmer Analyst Relationship Specialty Start Date End Date Ref, Has No Pcp Or DO NOT EDIT THIS RECORD VIA PROVIDER ON THE FLY PCP - General Shingle Sawyer 03/12/24 documented as of this encounter
--- OUTSIDE RECORDS SUMMARY | 2025-03-03 01:12 | XMS_ITS | Encounter Summary ---
Author Organization [facility] Address [address] [place] [address] Care Team Providers Care Senior Sourcing Manager Name Role Phone Ref, Has No Pcp Or Primary Care Provider Unavail able Reason for Visit * Reason Onset Date Comments Actionable Finding 03/25/2024 Encounter Details Date Type Department Care Team (Late st Contact Info) Description 03/25/2024 Telephone [facility] - Actionable Findings [address] [facility] [address] [place] [address] Antonia Solo LPN Actionable Finding Social History [...] on filedocumented in this encounter Care Teams Senior Sourcing Manager Relationship Specialty Start Date End Date Ref, Has No Pcp Or DO NOT EDIT THIS RECORD VIA PROVIDER ON THE FLY PCP - General Grain Sacker 03/12/24 documented as of this encounter
--- NOTE | 2025-03-03 01:33 | ED_ITS ---
HPI - General Adult General Chief complaint: Psychiatric Symptoms Stated complaint: depression Time Seen by Provider: 03/03/25 01:22 Source: patient, RN notes reviewed and old records reviewed Mode of arrival: ambulatory Limitations: no limitations History of Present Illness ED Provider: Royce ESPINOSA narrative: 29-year-old male past medical history significant for antisocial personality disorder, schizoaffective disorder, bipolar type presents for evaluation of depression. The patient reports that he has been having a hard time for the last week. He reports increasing stress and depression. He states that most of his issues are stemming from lack of housing He denies any active suicidal thoughts and denies any plan but reports previous suicidal thoughts The patient also reports previous attempts years ago. He states in the past he has tried as she had himself. I asked the patient if he had access to a firearm and he states ?yes and no. ? He is not currently on any medication for depression or anxiety The patient denies any somatic complaints Related Data Previous Rx's ?Medication ?Instructions ?Recorded olanzapine 7.5 mg tablet 7.5 mg PO BEDTIME 30 days #3 0 tabs 11/20/21 albuterol sulfate 90 mcg/actuation 2 puff inhalation Q 4-6H PRN 04/25/22 aerosol inhaler (ProAir HFA) shortness of breath or wh eezing #8.5 grams ibuprofen 400 mg tablet 400 mg PO Q8H PRN pain #14 t abs 01/01/23 cyclobenzaprine 10 mg tablet 10 mg PO TID PRN muscle s pasm #10 02/27/25 tabs ibuprofen 600 mg tablet 600 mg PO TID PRN pain #14 t abs 02/27/25 Allergies Allergy/AdvReac Type Severity Reaction Status Date / Time No Known Allergies Allergy Verified 03/02/25 22:42 Review of Systems 2 Constitutional: Constitutional: Denies body ache(s), Denies chills and Denies fever(s) Eyes: Eyes: Denies blurry vision ENT: Denies vertigo and Denies dizziness Cardiovascular: Cardiovascular: Denies chest pain and Denies dyspnea on exertion Respiratory: Respiratory: Denies cough and Denies dyspnea on exertion Gastrointestinal: Gastrointestinal: Denies abdominal pain, Denies nausea and Denies vomiting Musculoskeletal: Musculoskeletal: Denies back pain Integumentary/Breasts: Skin/Breast: Denies rash Neurologic: Denies vertigo and Denies dizziness Psychiatric: Psychiatric: Reports anxiety, Reports depression, Denies auditory hallucinations, Reports hopelessness, Reports panic attacks, Denies visual hallucinations and Reports suicidal ideation [facility] Past Medical History Medical History Antisocial personality disorder Schizophrenia Social History Social History Household Members: None Housing: Apartment Do you presently have visiting nurse or other home services: Yes Alcohol intake: former Patient Tobacco Use Status: Never used Tobacco Smoked in Last 30 Days: No e-Cigarette/Vaping Use: Never Used Second Hand Smoke Exposure: No Use of substances other than those prescribed or required for medical reasons: Yes Substance Use Type: Marijuana Advance Directives: No Do you have a plan to hurt others: No Plan service: No Sexual orientation: Straight/Heterosexual Physical Exam ED Vital Signs: Vital Signs - 24 hr 03/02/25 22:40 03/03/25 02:27 03/03/25 08:50 Temperature 98.5 F 98.0 F 98.2 F Pulse Rate 75 52 68 Respiratory Rate 15 17 16 Blood Pressure 148/78 H 129/60 144/71 H Pulse Oximetry 99 97 99 Oxygen Delivery Method Room Air Room Air Room Air 03/03/25 14:55 Temperature Pulse Rate Respiratory Rate 16 Blood Pressure Pulse Oximetry Oxygen Delivery Method BMI result Body Mass Index 29.3 Const General: healthy appearing, comfortable, no acute distress, alert and awake Nutritional Appearance: well nourished Orientation/consciousness: patient oriented x3 HENMT Head: Yes normocephalic and Yes atraumatic Eyes Eyelids: Yes eyelids normal Conjunctivae: conjunctivae normal Sclerae: sclerae normal Corneas: corneas normal Pupils: Equal, round and reactive pupils present EOM: EOMs intact bilaterally Neck Neck: Yes full ROM Resp Effort & Inspection: normal respiratory effort, able to speak in complete sentences and not labored Skin General skin exam: elasticity normal Neuro General: patient oriented x3 Cranial nerves: Yes CN's II-XII intact bilaterally, Yes Equal, round and reactive pupils present and Yes Bilaterally intact EOM present Cognition (Neuro): normal cognition Extrem Other: Moving all extremities well without any obvious deformities Course Reevaluation(s) Reevaluation #1: Patient signed out to overnight staff pending care team consult and disposition Time: 01:58 Reevaluation #2: Time: 08;30 Date: 03/03/25 Provider: DR. Epperson Patient in physician observation for psychiatric evaluation.? No acute events reported overnight. No current complaints. VS stable.? Patient is in bed search status. Will continue to monitor. Reevaluation #3: Time: 16:57 Date: 03/03/25 Provider: Moises Nowak MD Physician observation ended at 16;60. Patient has been cleared for discharge by the CARE team. The care team had hoped to get the patient into respite but there were no respite beds available. At that point the patient recanted any thoughts of self-harm and requested discharge. I went to see the patient. He seemed calm and cooperative and denies any thoughts of harming himself. He says that he feels safe being discharged. I therefore feel we have no grounds on which to hold him involuntarily so he will be discharged.. Medical Decision Making Medical Decision Making MDM Narrative: 29-year-old male past medical history as above presents for evaluation of depression. This is the patient's 4th ER visit in the last 4 days. He does have a history of depression, homelessness and malingering. He is requesting to speak with the care team which we will do. Plan for medical clearance and care team consult. He has no somatic complaints, vital signs are within normal limits. Differential Diagnosis Differential Diagnoses: The differential diagnosis associated with the presentation includes Depression Suicidal ideation Antisocial personality disorder Schizoaffective Lab Data 03/03/25 02:09 03/03/25 02:09 Labs: Lab Results 03/03/25 Range/Units 02:09 WBC 6.2 (4.8-10.8) X10*3/uL RBC 4.36 L (4.60-5.80) X10*6/uL Hgb 14.2 (14.0-18.0) g/dl Hct 39.7 L (42.0-52.0) % MCV 91.1 (80.0-98.0) fL MCH 32.6 (27.0-33.0) pg MCHC 35.8 (31.0-36.0) g/dl RDW 12.6 (11.0-16.0) % Plt Count 232 (160-400) X10*3/uL MPV 9.6 (9.4-12.4) fL Immature Gran % (Auto) 0.2 (0.0-0.4) % Neut % (Auto) 54.5 (45-73) % Lymph % (Auto) 32.1 (20-40) % Grainger % (Auto) 9.1 (2-11) % Eos % (Auto) 3.5 (0-4) % Baso % (Auto) 0.6 (0-2) % Lymph # (Auto) 2.0 (1.2-4.9) X10*3/uL Grainger # (Auto) 0.6 (0.1-1.2) X10*3/uL Eos # (Auto) 0.2 (0.0-0.4) X10*3/uL Baso # (Auto) 0.0 (0.0-0.2) X10*3/uL Abs Immat Gran (auto) 0.01 (0.00-0.03) X10*3/uL Absolute Neuts (auto) 3.4 (2.0-8.3) x10*3/uL Absolute Nucleated RBC 0.000 (0.0-0.012) X10*3/uL Nucleated RBC % (auto) 0.0 (0.0-0.2) /100WBC Sodium 140 (135-145) mmol/L Potassium 4.0 (3.3-5.1) mmol/L Chloride 106 (96-108) mmol/L Carbon Dioxide 27 (22-29) mmol/L Anion Gap 11 L (12-20) BUN 22 H (9-16) mg/dL Creatinine 0.93 (0.5-1.4) mg/dL Estim Creat Clear Calc 112.0 Estimated GFR > 60 Random Glucose 85 (60-115) mg/dL Calcium 9.2 (8.4-10.2) mg/dL Total Bilirubin 0.6 (0.0-1.0) mg/dL AST 32 (5-37) U/L ALT 35 (0-40) U/L Alkaline Phosphatase 58 (39-117) U/L Total Protein 6.9 (6.5-8.0) g/dL Albumin 4.3 (3.5-5.0) g/dL Salicylates < 5.0 L (15-30) mg/dL Urine Opiates Screen Not Detected (Not Detect) Ur Buprenorphine Scrn Not Detected (Not Detect) ng/mL Ur Oxycodone Screen Not Detected (Not Detect) ng/mL Urine Methadone Screen Not Detected (Not Detect) ng/mL Urine Fentanyl Screen Not Detected (Not Detect) Acetaminophen < 3 (<30) mcg/mL Ur Barbiturates Screen Not Detected (Not Detect) Ur Phencyclidine Scrn Not Detected (Not Detect) Ur Amphetamines Screen Not Detected (Not Detect) U Benzodiazepines Scrn Not Detected (Not Detect) Urine Cocaine Screen Not Detected (Not Detect) U Marijuana (THC) Screen POSITIVE H (Not Detect) Ethyl Alcohol < 10 mg/dL Discharge Plan Discharge Clinical Impression: Depression Patient Disposition: Home, Self-Care Additional Instructions: You were seen in our Emergency Department today for treatment of a behavioral health issue. It is important after your visit that you follow up with either your behavioral health provider or a primary care doctor within 7 days.? If you have trouble finding a therapist you can reach out to [address] [phone] The National Suicide and Crisis Lifeline can be reached 7 days a week 24 hours a day.? Please all [phone] if you feel the need to speak with someone confidentially about how you are feeling.? It would be good to work on trying to get a primary care doctor. Contact information for several local primary care offices are provided on your discharge instructions. Return to the emergency room for any worsening symptoms or concerns such as thoughts of self harm or harm to others. Please call 911 if you feel very bad.? Prescriptions: No Action albuterol sulfate [ProAir HFA] 90 mcg/actuation HFA aerosol inhaler 2 puff inhalation Q4-6H PRN (Reason: shortness of breath or wheezing) Qty: 8.5 0RF olanzapine 7.5 mg tablet 7.5 mg PO BEDTIME 30 Days Qty: 30 0RF Rx Instructions: Send to: [address] [address] ibuprofen 400 mg tablet 400 mg PO Q8H PRN (Reason: pain) Qty: 14 0RF cyclobenzaprine 10 mg tablet 10 mg PO TID PRN (Reason: muscle spasm) Qty: 10 0RF ibuprofen 600 mg tablet 600 mg PO TID PRN (Reason: pain) Qty: 14 0RF Referrals: [facility] [Provider Group] [facility] [Provider Group] [facility], [facility] [Provider Group, Internal Medicine] [facility] Primary Care, [facility] [Provider Group, Primary Care] Interventions: [place]-Suicide Risk Severity Scale Last Done: 03/03/25 02:31 Print Language: Mauritian
[2025-03-03 02:14] LABS: MANUAL DIFF FLAG NO
[2025-03-03 02:16] LABS: Hematocrit 39.7 % (42.0-52.0); Hemoglobin 14.2 g/dl (14.0-18.0); Imm Gran Abs Auto 0.01 X10*3/uL (0.00-0.03); Imm Gran Pct Auto 0.2 % (0.0-0.4); Lymphocytes Absolute Auto 2.0 X10*3/uL (1.2-4.9); Mean Corpuscular HGB Conc 35.8 g/dl (31.0-36.0); Mean Corpuscular Hemoglobin 32.6 pg (27.0-33.0); Mean Corpuscular Volume 91.1 fL (80.0-98.0); NRBC Abs Auto 0.000 X10*3/uL (0.0-0.012); NRBC Pct Auto 0.0 /100WBC (0.0-0.2); Platelet Count 232 X10*3/uL (160-400); Red Blood Count 4.36 X10*6/uL (4.60-5.80); White Blood Count 6.2 X10*3/uL (4.8-10.8)
[2025-03-03 02:27] VITALS: BP 129/60; PULSE 52; RESP 17; TEMP 36.7; O2SAT 97
[2025-03-03 02:27] LABS: Cannabinoid Screen Urine POSITIVE (Not Detect)
[2025-03-03 02:29] LABS: Acetaminophen LAB < 3 mcg/mL (<30); Salicylate < 5.0 mg/dL (15-30)
[2025-03-03 02:30] LABS: Alanine Aminotransferase 35 U/L (0-40); Albumin Level 4.3 g/dL (3.5-5.0); Alkaline Phosphatase 58 U/L (39-117); Anion Gap 11 (12-20); Aspartate Amino Transferase 32 U/L (5-37); Blood Urea Nitrogen 22 mg/dL (9-16); Calcium 9.2 mg/dL (8.4-10.2); Carbon Dioxide 27 mmol/L (22-29); Chloride 106 mmol/L (96-108); Creatinine Clr Calc Pharmacy 112.0; Estimated Glomerular Filt Rate > 60; Potassium 4.0 mmol/L (3.3-5.1); Sodium 140 mmol/L (135-145); Total Protein 6.9 g/dL (6.5-8.0)
--- NOTE | 2025-03-03 02:40 | PC.NURSE ---
med rec completed at this time, pt able to verbalize home medications
--- NOTE | 2025-03-03 07:10 | PC.NURSE ---
Assumed care, report received. Pt is currently sleeping, safety maintained.
[2025-03-03 08:50] VITALS: BP 144/71; PULSE 68; RESP 16; TEMP 36.8; O2SAT 99
[2025-03-03 14:55] VITALS: RESP 16
[2025-03-03 17:33] VITALS: BP 144/71; PULSE 68; RESP 18; TEMP 36.8; O2SAT 99
== END 2025-03-03 17:35 | disposition home or self-care (01) ==
PROVIDERS: Physician Assistant; Emergency Provider Emergency Medicine
DX: F33.1 Major depressive disorder, recurrent, moderate (principal); F43.9 Reaction to severe stress, unspecified; R45.851 Suicidal ideations; Z79.899 Other long term (current) drug therapy; Z51.81 Encounter for therapeutic drug level monitoring
CPT/HCPCS: 36415; 80053; 80143; 80179; 80307; 85025; 99285; S9485